=== PATIENT | male | born 1985 | race Caucasian/White ===

== ENCOUNTER → 2022-07-19 11:05 | Outpatient (BNVA) | payer OTHER, SELFPAY | PROVIDERS: Visit Provider Physician Assistant Medical | DX: Z13.89 Encounter for screening for other disorder (principal) | CPT/HCPCS: 99202 ==

== ENCOUNTER 2022-08-09 10:00 | Outpatient (RCR) | payer OTHER, SELFPAY ==
--- NOTE | 2022-08-01 14:44 | MHC.OT.EP ---
[address] [phone] Occupational Therapy Plan of Care Date of Evaluation: 08/01/22 Diagnosis: Bilateral dorsal hand pain Assessment: Pt. is a 37 y/o male referred to OT with B dorsal hand pain. Pt. reports > 3 week history of worsening dorsal index finger pain exacerbated by frequent typing at work. Pt. was educated in proper ergonomics related to work space and typing, and was receptive to recommendations. 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 Pt. educated in role of OT, POC, and goals. 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 Thank you once again for your referral.
== END 2022-12-13 14:15 | disposition home or self-care (01) ==
LOC: HO.OT 10:00
PROVIDERS: Visit Provider Internal Medicine
DX: M79.641 Pain in right hand (principal); M79.642 Pain in left hand
CPT/HCPCS: 97035; 97110; 97140; 97165

== ENCOUNTER → 2022-08-10 12:50 | Outpatient (BNVA) | payer OTHER, SELFPAY | PROVIDERS: Visit Provider Internal Medicine | DX: Z13.89 Encounter for screening for other disorder (principal) | CPT/HCPCS: 99213 ==

== ENCOUNTER 2023-11-12 14:49 | Emergency (ER) | payer OTHER, SELFPAY ==
[2023-11-12 15:29] VITALS: BP 160/108; PULSE 143; RESP 22; TEMP 37.2; O2SAT 96; BMI 27.4
[2023-11-12 15:44] LABS: MANUAL DIFF FLAG NO
[2023-11-12] MEDS: LORazepam 1 MG TABLET 2 MG PO ×2 (15:47→19:11)
[2023-11-12 15:48] LABS: Basophils Absolute Auto 0.1 X10*3/uL (0.0-0.2); Basophils Percent Auto 0.5 % (0-2); Hematocrit 44.3 % (42.0-52.0); Hemoglobin 15.6 g/dl (14.0-18.0); Imm Gran Abs Auto 0.04 X10*3/uL (0.00-0.03); Imm Gran Pct Auto 0.4 % (0.0-0.4); Lymphocytes Percent Auto 9.5 % (20-40); Mean Corpuscular HGB Conc 35.2 g/dl (31.0-36.0); Mean Corpuscular Hemoglobin 30.2 pg (27.0-33.0); Mean Corpuscular Volume 85.7 fL (80.0-98.0); Mean Platelet Volume 9.7 fL (9.4-12.4); Monocytes Absolute Auto 0.7 X10*3/uL (0.1-1.2); Monocytes Percent Auto 7.2 % (2-11); Neutrophils Absolute Auto 8.2 x10*3/uL (2.0-8.3); Neutrophils Percent Auto 82.4 % (45-73); Platelet Count 278 X10*3/uL (160-400); Red Blood Count 5.17 X10*6/uL (4.60-5.80); Red Cell Distribution Width 11.9 % (11.0-16.0)
--- NOTE | 2023-11-12 15:50 | MHC.CARE ---
CARE Team met with Pt secondary to coming to the ED for alcohol withdrawal; last drink was last night, typically drinking 10 mixed drinks a day.? CARE Team reviewed? treatment options with Pt;? ATS, IOP ect.? Plan for CARE Team to follow up with Pt pending medical clearance to discuss referrals.?
[2023-11-12 16:04] LABS: Alanine Aminotransferase 30 U/L (0-40); Albumin Level 4.5 g/dL (3.5-5.0); Alkaline Phosphatase 79 U/L (39-117); Anion Gap 18 (12-20); Aspartate Amino Transferase 35 U/L (5-37); Bilirubin Total 0.8 mg/dL (0.0-1.0); Blood Urea Nitrogen 9 mg/dL (9-16); Calcium 9.4 mg/dL (8.4-10.2); Carbon Dioxide 23 mmol/L (22-29); Chloride 101 mmol/L (96-108); Creatinine Clr Calc Pharmacy 110.4; Estimated Glomerular Filt Rate > 60; Ethanol < 10 mg/dL; Glucose Random 98 mg/dL (60-115); Potassium 3.5 mmol/L (3.3-5.1); Sodium 138 mmol/L (135-145); Total Protein 7.9 g/dL (6.5-8.0)
--- NOTE | 2023-11-12 16:15 | ED.GENADULT ---
HPI - General Adult General Chief complaint: General Medical Stated complaint: detox Time Seen by Provider: 11/12/23 15:17 Source: patient Mode of arrival: ambulatory Limitations: no limitations History of Present Illness HPI narrative: patient felt himself going into alcohol withdrawal and was told to come to the ED. He has been an alcoholic for 4 years. Denies liver failure or pancreatitis. Onset (ago): hour(s) Related Data Allergies Allergy/AdvReac Type Severity Reaction Status Date / Time azithromycin Allergy Hives Verified 11/12/23 15:36 Review of Systems Review of Systems: Yes all other systems are reviewed and are negative Neurologic: Denies Sensory deficit (Neuro) [facility] Social History Social History Alcohol intake: current Alcohol intake frequency: 3 or more drinks per day Alcohol type: hard liquor Smoked in Last 30 Days: No Use of substances other than those prescribed or required for medical reasons: No Physical Exam ED Vital Signs: Vital Signs - 24 hr 11/12/23 15:29 Temperature 98.9 F Pulse Rate 143 H Respiratory Rate 22 H Blood Pressure 160/108 H Pulse Oximetry 96 Oxygen Delivery Method Room Air BMI result Body Mass Index 27.4 Const Other: shakey, anxious Nutritional Appearance: average body habitus Orientation/consciousness: oriented to person and patient oriented x3 Limitations: no limitations HENMT Head: Yes normal to inspection Ears: external ears normal General nose exam: Normal external nose present Mouth: Normal oral and palatal mucosa present and oropharynx normal Throat: Yes posterior oropharynx normal Eyes General: appearance normal, both eyes and all related structures Neck Neck: Yes normal visual inspection Chest Chest palpation & inspection: normal inspection of the chest Resp Auscultation: clear to auscultation bilaterally Cardio Jugular venous distension: no JVD Rate: regular rate Rhythm: regular rhythm Heart sounds: S1 normal heart sound present and S2 normal heart sound present GI Inspection: Yes normal to inspection Palpation (GI): Soft to palpation, nontender and No hepatosplenomegaly present Auscultation: normal bowel sounds General: Yes no CVA tenderness Back/Spine/Pelvis Back: no CVA tenderness Skin General skin exam: no rashes or lesions noted Neuro General: oriented to person and patient oriented x3 Cranial nerves: Yes CN's II-XII intact bilaterally Motor exam (neuro): 5/5 motor strength present throughout Sensory Exam: No Sensory deficit (Neuro) Extrem General: Yes normal to inspection Psych Appearance: grossly normal Course Reevaluation(s) Reevaluation #1: Care team to evaluate the patient for withdrawal Time: 16: Reevaluation #2: physician observation: patient placed in physician observation now to see if he will need to be placed or admitted, still shakey Time: 16:26 Medications Administered Discontinued Medications Generic Name Dose Route Start Last Admin Trade Name Dustyq PRN Reason Stop Dose Admin Lorazepam 2 mg 11/12/23 15:26 11/12/23 15:47 Lorazepam 1 Mg Tablet PO 11/12/23 15:27 2 mg ONCE ONE Administration Medical Decision Making Differential Diagnosis Differential Diagnoses: The differential diagnosis associated with the presentation includes (alcoholism, alcohol withdrawal) Admission/Observation Consideration of admission/observation: Escalation of care including admission/observation considered (upon arrival patient considered for admission) Consult Healthcare Provider Management of the patient was discussed with: Behavioral Health Provider Lab Data [facility] Lab Attestation statement: I reviewed the patient's lab results. 11/12/23 15:41 11/12/23 15:41 Labs: Lab Results 11/12/23 Range/Units 15:41 WBC 10.0 (4.8-10.8) X10*3/uL RBC 5.17 (4.60-5.80) X10*6/uL Hgb 15.6 (14.0-18.0) g/dl Hct 44.3 (42.0-52.0) % MCV 85.7 (80.0-98.0) fL MCH 30.2 (27.0-33.0) pg MCHC 35.2 (31.0-36.0) g/dl RDW 11.9 (11.0-16.0) % Plt Count 278 (160-400) X10*3/uL MPV 9.7 (9.4-12.4) fL Immature Gran % (Auto) 0.4 (0.0-0.4) % Neut % (Auto) 82.4 H (45-73) % Lymph % (Auto) 9.5 L (20-40) % Mcpherson % (Auto) 7.2 (2-11) % Eos % (Auto) 0.0 (0-4) % Baso % (Auto) 0.5 (0-2) % Lymph # (Auto) 1.0 L (1.2-4.9) X10*3/uL Mcpherson # (Auto) 0.7 (0.1-1.2) X10*3/uL Eos # (Auto) 0.0 (0.0-0.4) X10*3/uL Baso # (Auto) 0.1 (0.0-0.2) X10*3/uL Abs Immat Gran (auto) 0.04 H (0.00-0.03) X10*3/uL Absolute Neuts (auto) 8.2 (2.0-8.3) x10*3/uL Absolute Nucleated RBC 0.000 (0.0-0.012) X10*3/uL Nucleated RBC % (auto) 0.0 (0.0-0.2) /100WBC Sodium 138 (135-145) mmol/L Potassium 3.5 (3.3-5.1) mmol/L Chloride 101 (96-108) mmol/L Carbon Dioxide 23 (22-29) mmol/L Anion Gap 18 (12-20) BUN 9 (9-16) mg/dL Creatinine 0.86 (0.5-1.4) mg/dL Estim Creat Clear Calc 110.4 Estimated GFR > 60 Random Glucose 98 (60-115) mg/dL Calcium 9.4 (8.4-10.2) mg/dL Total Bilirubin 0.8 (0.0-1.0) mg/dL AST 35 (5-37) U/L ALT 30 (0-40) U/L Alkaline Phosphatase 79 (39-117) U/L Total Protein 7.9 (6.5-8.0) g/dL Albumin 4.5 (3.5-5.0) g/dL Ethyl Alcohol < 10 mg/dL Independent Historian Clinical information obtained from an independent historian. History obtained from or confirmed by: Friend Chronic Conditions Patient?s care impacted by: Other (alcoholism) Social Determinants Patient?s care significantly limited by Social Determinants of Health including: Alcoholism and drug addiction in family Discharge Plan Discharge Clinical Impression: Alcohol withdrawal Patient Disposition: Still a Patient
--- NOTE | 2023-11-12 16:25 | PC.NURSE ---
pt presents to ED for ETOH withdrawal. last drink was yesterday. pt reports hx of etoh withdrawal with out seizures.he reports he typically drinks 10-15 drinks of mixed hard alcohol daily. a&ox4, independent and ambulatory. 20G IV placed in pts RAC. initial CIWA 7. pt tachy and tremulous, diaphoretic. informed and new orders placed.
[2023-11-12] MEDS: LORazepam 2 MG/ML VIAL IVPUSH (16:46)
[2023-11-12] MEDS: Pantoprazole Sodium 40 MG/10 ML VIAL IVPUSH (16:46)
[2023-11-12] MEDS: 0.9 % Sodium Chloride 1,000 ML 999 ML IVCONT ×2 (16:47)
[2023-11-12 17:28] LABS: Amphetamine Screen Urine Not Detected (Not Detect); Barbiturates, Urine Not Detected (Not Detect); Benzodiazepines Screen Urine Not Detected (Not Detect); Cannabinoid Screen Urine Not Detected (Not Detect); Cocaine Screen Urine Not Detected (Not Detect); Fentanyl, urine Not Detected (Not Detect); Opiate Screen Urine Not Detected (Not Detect); Phencyclidine Screen Urine Not Detected (Not Detect)
[2023-11-12 18:24] VITALS: BP 148/103; PULSE 124; RESP 21; O2SAT 96
--- NOTE | 2023-11-12 18:38 | MHC.CARE ---
Care Team meets with pt to explore recovery resources. Pt states that he feels much better and is interested in recovery resources. Care team informed him about [facility] and he was interested. T/w connected with Sirisha from [facility] who stated they have beds. Documentation provided and pt informed that they will be in contact to facilitate an intake over the phone. Pt is requesting to go home so he can find someone to watch his dog. Pt requests to go home around 8 because he states he does not feel comfortable driving. Per pt he gets lightheaded driving at night. Pt did not drink today, his last drink was last night. I informed pt that I can get him a lyft home and will be back to check in on him with any updates from [facility]. Pt reports he was under a lot of stress today and felt extremely anxious. ED provider aware of plan.
[2023-11-12] MEDS: 0.9 % Sodium Chloride 1,000 ML 999 ML IV (19:11)
[2023-11-12 19:15] VITALS: BP 154/109; PULSE 126; RESP 20; O2SAT 96
[2023-11-12] MEDS: chlordiazePOXIDE HCl 25 MG CAPSULE 50 MG PO (20:16)
== END 2023-11-12 20:26 | disposition home or self-care (01) ==
PROVIDERS: Emergency Provider Emergency Medicine; PCP Nurse Practitioner
DX: F10.239 Alcohol dependence with withdrawal, unspecified (principal); Y90.0 Blood alcohol level of less than 20 mg/100 ml; Z79.899 Other long term (current) drug therapy; Z71.41 Alcohol abuse counseling and surveillance of alcoholic
CPT/HCPCS: 36415; 80053; 80307; 85025; 96361; 96374; 96375; 99284; C9113; J2060

== ENCOUNTER 2024-11-30 09:15 | Outpatient (AMB) | payer OTHER, SELFPAY ==
--- NOTE | 2024-11-30 09:37 | MHC.AM.SUB ---
Intake Visit Reasons: Intake Allergies azithromycin Allergy (Verified 11/12/23 15:36) Hives HPI HPI Intake: Details: Patient presents for intake and continuation of treatment for AUD Wants to restart vivitrol --last injection about 3 months ago Full substance history obtained by RN and reviewed with patient Patient reports that he had been abstaining from alcohol for almost a year, then over the last few months has started to drink again. He noted that cravings/urges to drink increased when he stopped getting vivitrol He reports the injection was stopped mainly due to logistical issues (coverage, delivery, etc) and not anything else He states that he has noted decrease in motivation since he started drinking which has directly impacted his engagement with recovery oriented activities and supports He is drinking about 6-7 drinks when he drinks last drink one week ago He identifies free time and boredom as precipitants to drinking Medical history reviewed: -hypertension Med list: Family history of AUD Discussed Recovery supports and strategies that have been helpful to patient cooking at home, spending time with family, walking his dog (Zgreyson) He also enjoyed attending [facility] recovery meetings and [facility] Al[facility] meetings on evenings Occasionally AA meetings Review of Systems Const Reports as per HPI and Reports lethargy Physical Exam Const General: cooperative, healthy appearing, comfortable and alert Nutritional Appearance: average body habitus Orientation/consciousness: patient oriented x3 Limitations: no limitations Neuro General: patient oriented x3 Psych Appearance: well kempt Speech and movement: Normal speech and movement present Affect: normal affect Attitude: cooperative Thought process: Normal thought process present Thought content: Normal thought content present Insight: Good insight present (Psych) Judgement: Good judgement present (Psych) Results Reviewed Results Reviewed: Laboratory Last Values POC Urine Buprenorphine Negative 11/30/24 09:37 POC Urine Morphine Negative 11/30/24 09:37 POC Urine Oxycodone Negative 11/30/24 09:37 POC Urine Methadone Negative 11/30/24 09:37 POC Urine Propoxyphene Negative 11/30/24 09:37 POC Urine Barbiturates Negative 11/30/24 09:37 POC U Tricyclic Antidpr Negative 11/30/24 09:37 POC Urine PCP Negative 11/30/24 09:37 POC Ur Amphetamines Negative 11/30/24 09:37 POC Ur Methamphetamine Negative 11/30/24 09:37 POC Urine MDMA Negative 11/30/24 09:37 POC Ur Benzodiazepine Negative 11/30/24 09:37 POC Urine Cocaine Negative 11/30/24 09:37 POC Ur Marijuana (THC) Negative 11/30/24 09:37 Assessment & Plan Assessment & Plan (1) Alcohol use disorder, moderate, dependence: Code(s): F10.20 - Alcohol dependence, uncomplicated Category: Medical Plan: restart oral naltrexone vivitrol ordered encouraged to engage in recovery supports--start with alum meeting weds follow up 2 weeks will call when injection is available Orders: Orders AMB 14 Panel Urine Drug Screen 11/30/24 Z51.81 - Encounter for therapeutic drug level monitoring Medications: New naltrexone 50 mg PO DAILY 90 tabs 0RF naltrexone microspheres ER (Vivitrol) 380 mg IM Q4W 1 ea 0RF Discontinued lorazepam (Ativan) Discontinued Reason: Patient Completed Course 2 mg PO Q4-6H PRN 24 tabs 0RF alcohol withdrawal PFSH Social History Alcohol intake: current Alcohol intake frequency: 3 or more drinks per day Alcohol type: hard liquor MAT Intake Nursing Intake Reason for visit: Establish care Are you currently using?: No What is your source of income?: Works here at [employer] What is your current relationship status?: Single Current PCP: Moon Tucker Date of last visit: Within the year Substance Abuse History Substance Abuse History (includes route, frequency and quantity): Alcohol Details: Recent relapse Social History Domestic Violence concerns: Denies Children: No Do you have a support system?: Yes family and friends Current mode of transportation?: Drives Where are you currently residing?: In a home in [place] LMP: N/A IV Drug Use Have you ever shared needles?: No Have you ever belonged to a needle exchange program?: No Do you buy needles at a pharmacy?: No Have you ever overdosed?: No Have you ever been hospitalized for an overdose?: No Was Naloxone administered?: Not applicable Recovery History Have you had any periods of recovery?: Yes What is your longest time in recovery?: 6 months When was the last time you were in recovery?: A year ago Have you ever had inpatient treatment for your substance abuse disorder?: Yes Have you been in an inpatient detoxification program?: Yes Have you been in an inpatient Rehab/[place] house?: No Have you been in an outpatient Methadone Maintenance program?: No Have you been in an outpatient Suboxone Maintenance program?: No Have you been in an AA/NA support program?: Yes Have you had a Recovery Support [employer] Teacher?: No Have you had Peer Support?: Yes Behavioral Health History Do you have a current provider? If so, who?: No was seen at [facility] diagnosis: Anxiety/Depression History of other addictive behavior: denies History of inpatient psychiatric hospitalization? If so, how many? Most Recent? Where?: denies History of self harming thoughts?: No History of homicidal or suicidal intentions?: No Legal History History of incarceration: No Currently on parole or probation: No Court mandated programs: No Pending court cases: No DCF involvement: No
--- OUTSIDE RECORDS SUMMARY | 2024-11-30 09:38 | XMS_ITS ---
Author Name [facility] Organization Unknown Results Test Name/Text Value Interpretation Date Range Source Lipase SerPl-cCnc 34unit/L Normal [id number] 11 - 82 [facility] Ethanol SerPl-mCnc 45mg/dL Above high normal [id number] 0 - 10 [facility] Glucose SerPl-mCnc 93mg/dL Normal [id number] 70 - 199 [facility] Calcium SerPl-mCnc 9.2mg/dL Normal [id number] 8.4 - 10 .2 [facility] Sodium SerPl-sCnc 139mmol/L Normal [id number] 135 - 145 [facility] BUN SerPl-mCnc 15mg/dL Normal [id number] 9 - 20 [facility] ALP SerPl-cCnc 70unit/L Normal [id number] 34 - 104 [facility] Anion Gap SerPl-sCnc 10 Normal [id number] 5 - 14 [facility] Albumin SerPl-mCnc 4.4g/dL Normal [id number] 3.5 - 5 [facility] ALT SerPl-cCnc 24unit/L Normal [id number] 7 - 52 [facility] eGFRcr SerPlBld CKD-EPI 2020 104mL/min/1.73m 2 Normal [id number] - [facility] Creat SerPl-mCnc 0.94mg/dL Normal [id number] 0.7 - 1.3 [facility] AST SerPl-cCnc 23unit/L Normal [id number] 5 - 40 [facility] CO2 SerPl-sCnc 29mmol/L Normal [id number] 24 - 32 [facility] BUN/Creat SerPl 16 Normal [id number] 12 - 20 [facility] Bilirub SerPl-mCnc 0.9mg/dL Normal [id number] 0.3 - 1 [facility] Chloride SerPl-sCnc 100mmol/L Normal [id number] 98 - 10 7 [facility] Potassium SerPl-sCnc 4.2mmol/L Normal [id number] 3.5 - 5.1 [facility] Prot SerPl-mCnc 7g/dL Normal [id number] 6.4 - 8.5 [facility] MCV RBC Auto 84.7FL Normal [id number] 78 - 100 [facility] Lymphocytes # Bld Auto 1.56K/mcL Normal [id number] 1 - 3.2 [facility] WBC # Bld Auto 7.2K/mcL Normal [id number] 4 - 10.5 [facility] Monocytes/leuk NFr Bld Auto 7.7% Normal [id number] 2 - 12 [facility] Platelet # Bld Auto 301K/mcL Normal [id number] 150 - 4 50 [facility] PMV Bld Auto 10.3FL Normal [id number] 7.4 - 11.4 [facility] MCH RBC Qn Auto 30pcg Normal [id number] 25 - 33 [facility] Eosinophil # Bld Auto 0.04K/mcL Normal [id number] 0 - 0.5 [facility] Neutrophils/leuk NFr Bld Auto 68.7% Normal [id number] 44 - 74 [facility] RBC # Bld Auto 5.16M/mcL Normal [id number] 4.7 - 6 [facility] Monocytes # Bld Auto 0.56K/mcL Normal [id number] 0 - 0.8 [facility] RDW RBC Auto-Rto 12.4% Normal [id number] 12.1 - 17. 7 [facility] Lymphocytes/leuk NFr Bld Auto 21.6% Normal [id number] 20 - 48 [facility] Eosinophil/leuk NFr Bld Auto 0.6% Normal [id number] 0 - 6 [facility] Basophils # Bld Auto 0.07K/mcL Normal [id number] 0 - 0.2 [facility] Neutrophils # Bld Auto 4.97K/mcL Normal [id number] 1.8 - 7.8 [facility] Hct VFr Bld Auto 43.7% Normal 40 - 54 [facility] Hgb Bld-mCnc 15.5g/dL Normal 13.5 - 18 [facility] MCHC RBC Auto-mCnc 35.5g/dL Normal 32 - 36 [facility] Basophils/leuk NFr Bld Auto 1% Normal 0 - 2 [facility] TSH SerPl DL<=0.005 mIU/L-aCnc 2.15uIU/mL Normal 0.45 - 5.33 [facility] LDLc SerPl Calc-mCnc 122mg/dL Normal 50 - 130 [facility] TRIGL SERPL-MCNC 170mg/dL Above high normal [id number] - 150 [facility] CHOLEST SERPL-MCNC 216mg/dL Above high normal 0 - 200 [facility] HDLC SERPL-MCNC 60mg/dL Normal 32 - 70 [facility] CREAT SERPL MCNC 1mg/dL Normal 0.7 - 1.3 [facility] BILIRUB SERPL MCNC 0.9mg/dL Normal 0.3 - 1 [facility] AST SERPL CCNC 18U/L Normal 5 - 40 [facility] Glomerular filtration rate/1.73 sq M. predicted 97 Normal 60 - [facility] HCO3 SER SCNC 29mmol/L Normal 24 - 32 [facility] POTASSIUM SERPL SCNC 4.8mmol/L Normal [id number] 3.5 - 5.1 [facility] ANION GAP SERPL SCNC 10mmol/L Normal 5 - 14 [facility] PROT SERPL MCNC 7.2g/dL Normal 6.4 - 8.5 [facility] CALCIUM SERPL MCNC 9.3mg/dL Normal 8.4 - 10 .2 [facility] ALP SERPL-CCNC 76U/L Normal 34 - 104 [facility] SODIUM SERPL SCNC 140mmol/L Normal 135 - 145 [facility] GLUCOSE SERPL MCNC 79mg/dL Normal 70 - 199 [facility] ALBUMIN SERPL BCG MCNC 4.7g/dL Normal 3.5 - 5 [facility] CHLORIDE SERPL SCNC 101mmol/L Normal [id number] 98 - 10 7 [facility] ALT SERPL CCNC 18U/L Normal 7 - 52 [facility] BUN SERPL MCNC 12mg/dL Normal 9 - 20 [facility] DIFFERENTIAL TYPE AUTOMATED Normal [id number] [facility] NEUTROPHILS NFR BLD AUTO 66.3% Normal [id number] 44 - 74 [facility] BASOPHILS NFR BLD AUTO 1.2% Normal [id number] 0 - 2 [facility] MONOCYTES NFR BLD AUTO 7.2% Normal [id number] 2 - 12 [facility] HCT VFR BLD AUTO 44.4% Normal [id number] 40 - 54 [facility] MONOCYTES NO. BLD AUTO 0.4K/uL Normal [id number] 0 - 0.8 [facility] RDW RBC AUTO RTO 13% Normal [id number] 12.1 - 17. 7 [facility] PLATELET NO. BLD AUTO 260K/uL Normal [id number] 150 - 450 [facility] EOSINOPHIL NO. BLD AUTO 0.1K/uL Normal [id number] 0 - 0.5 [facility] RBC NO. BLD AUTO 5M/uL Normal [id number] 4.7 - 6 [facility] MCH RBC QN AUTO 31.1pg Normal [id number] 25 - 33 C [facility] MCHC RBC AUTO MCNC 35g/dL Normal [id number] 32 - 36 [facility] HGB BLD MCNC 15.6g/dL Normal [id number] 13.5 - 18 [facility] BASOPHILS IN BLOOD BY AUTOMATED COUNT 0.1K/uL Normal [id number] 0 - 0.2 [facility] WBC NO. BLD AUTO 6.1K/uL Normal [id number] 4 - 10.5 [facility] EOSINOPHIL NFR BLD AUTO 2.3% Normal [id number] 0 - 6 [facility] LYMPHOCYTES NFR BLD AUTO 23% Normal [id number] 20 - 48 [facility] MCV RBC AUTO 88.9fL Normal [id number] 78 - 100 [facility] NEUTROPHILS NO. BLD AUTO 4.1K/uL Normal [id number] 1.8 - 7.8 [facility] LYMPHOCYTES NO. BLD AUTO 1.4K/uL Normal [id number] 1 - 3.2 [facility] PMV BLD AUTO 10.4fL Normal [id number] 7.4 - 11.4 [facility] LIPASE SERPL CCNC 42U/L Normal 11 - 82 [facility] AMYLASE SERPL CCNC 27U/L Below low normal 2 9 - 103 [facility] MAGNESIUM SERPL MCNC 1.9mg/dL Normal [id number] 1.7 - 2.8 [facility] CREAT SERPL MCNC 0.9mg/dL Normal [id number] 0.7 - 1.3 [facility] CALCIUM SERPL MCNC 9mg/dL Normal [id number] 8.4 - 10 .2 [facility] SODIUM SERPL SCNC 135mmol/L Normal [id number] 135 - 145 [facility] ANION GAP SERPL SCNC 10mmol/L Normal [id number] 5 - 14 [facility] Glomerular filtration rate/1.73 sq M. predicted 110 Normal [id number] 60 - [facility] HCO3 SER SCNC 24mmol/L Normal [id number] 24 - 32 [facility] GLUCOSE SERPL MCNC 103mg/dL Normal [id number] 70 - 199 [facility] BUN SERPL MCNC 15mg/dL Normal [id number] 9 - 20 [facility] CHLORIDE SERPL SCNC 101mmol/L Normal [id number] 98 - 10 7 [facility] POTASSIUM SERPL SCNC 4mmol/L Normal [id number] 3.5 - 5.1 [facility] LDH SERPL L TO P CCNC 251U/L Above high normal [id number] 125 - 220 [facility] AST SERPL CCNC 107U/L Above high normal 5 - 40 [facility] ALP SERPL-CCNC 70U/L Normal 34 - 104 [facility] ALT SERPL CCNC 129U/L Above high normal 7 - 52 [facility] BILIRUB SERPL MCNC 1.7mg/dL Above high normal 0.3 - 1 [facility] BILIRUB DIRECT SERPL MCNC 0.4mg/dL Above high normal 0 - 0.2 [facility] PLATELET NO. BLD AUTO 293K/uL Normal [id number] 150 - 450 [facility] RBC NO. BLD AUTO 5.12M/uL Normal 4.7 - 6 [facility] NUCLEATED RBC 0% Normal 0 - 1 [facility] LYMPHOCYTES NO. BLD AUTO 1.2K/uL Normal 1 - 3.2 [facility] EOSINOPHIL NO. BLD AUTO 0.1K/uL Normal [id number] 0 - 0.5 [facility] MCH RBC QN AUTO 30.1pg Normal [id number] 25 - 33 C [facility] MCHC RBC AUTO MCNC 35.8g/dL Normal 32 - 36 [facility] MONOCYTES NFR BLD AUTO 9.1% Normal 2 - 12 [facility] IMMATURE GRANULOCYTE, ABSOLUTE 0.02k/uL Normal [id number] - 0.1 [facility] LYMPHOCYTES NFR BLD AUTO 17.7% Below low normal 20 - 48 [facility] EOSINOPHIL NFR BLD AUTO 0.9% Normal [id number] 0 - 6 [facility] HGB BLD MCNC 15.4g/dL Normal [id number] 13.5 - 18 [facility] NEUTROPHILS NO. BLD AUTO 4.8K/uL Normal [id number] 1.8 - 7.8 [facility] WBC NO. BLD AUTO 6.7K/uL Normal [id number] 4 - 10.5 [facility] BASOPHILS NFR BLD AUTO 1% Normal 0 - 2 [facility] MONOCYTES NO. BLD AUTO 0.6K/uL Normal 0 - 0.8 [facility] MCV RBC AUTO 84fL Normal 78 - 100 [facility] NEUTROPHILS NFR BLD AUTO 71% Normal 44 - 74 [facility] IMMATURE GRANULOCYTE, PERCENT 0.3% Normal 0 - 1 [facility] BASOPHILS IN BLOOD BY AUTOMATED COUNT 0.1K/uL Normal 0 - 0.2 [facility] PMV BLD AUTO 10.6fL Normal 7.4 - 11.4 [facility] RDW RBC AUTO RTO 11.6% Below low normal 12. 1 - 17.7 [facility] HCT VFR BLD AUTO 43% Normal 40 - 54 [facility] BNP BLD MCNC 23pg/mL Normal [id number] 0 - 100 [facility] MAGNESIUM SERPL MCNC 2.1mg/dL Normal [id number] 1.7 - 2.8 [facility] LIPASE SERPL CCNC 93U/L Above high normal [id number] 1 1 - 82 [facility] LDH SERPL L TO P CCNC 129U/L Normal [id number] 125 - 220 [facility] AST SERPL CCNC 22U/L Normal [id number] 5 - 40 [facility] ALP SERPL-CCNC 61U/L Normal [id number] 34 - 104 [facility] ALT SERPL CCNC 24U/L Normal [id number] 7 - 52 [facility] CREAT SERPL MCNC 1mg/dL Normal [id number] 0.7 - 1.3 [facility] CALCIUM SERPL MCNC 9.3mg/dL Normal [id number] 8.4 - 10 .2 [facility] SODIUM SERPL SCNC 136mmol/L Normal [id number] 135 - 145 [facility] ANION GAP SERPL SCNC 8mmol/L Normal [id number] 5 - 14 [facility] Glomerular filtration rate/1.73 sq M. predicted 98 Normal [id number] 60 - [facility] HCO3 SER SCNC 27mmol/L Normal [id number] 24 - 32 CTT [facility] GLUCOSE SERPL MCNC 93mg/dL Normal [id number] 70 - 199 [facility] BUN SERPL MCNC 12mg/dL Normal 9 - 20 [facility] CHLORIDE SERPL SCNC 101mmol/L Normal 98 - 10 7 [facility] POTASSIUM SERPL SCNC 3.8mmol/L Normal [id number] 3.5 - 5.1 [facility] BILIRUB SERPL MCNC 0.8mg/dL Normal [id number] 0.3 - 1 [facility] BILIRUB DIRECT SERPL MCNC 0.2mg/dL Normal 0 - 0.2 [facility] PT TIME PPP 11.8sec Normal [id number] 10.5 - 13.3 CTT HS INR PPP 1 Normal [id number] 0.8 - 1.1 [facility] D DIMER DDU PPP EIA MCNC 155ng/mLDDU Normal [id number] - 231 [facility] AMYLASE SERPL CCNC 38U/L Normal 29 - 103 [facility] Clarity Ur Refract.auto CLEAR Normal [id number] [facility] Prot Ur Ql Strip.auto NEGATIVE Normal [id number] - [facility] Glucose Ur Ql Strip.auto NEGATIVE Normal [id number] - [facility] Nitrite Ur Ql Strip.auto NEGATIVE Normal [id number] - [facility] Hgb Ur Ql Strip.auto NEGATIVE Normal [id number] - [facility] Ketones Ur Ql Strip.auto NEGATIVE Normal [id number] - [facility] Leukocyte esterase Ur Ql Strip.auto NEGATIVE Normal [id number] - [facility] Sp Gr Ur Strip.auto 1.025 Normal [id number] 1.0 05 - 1.03 [facility] pH Ur Strip.auto 6 Normal [id number] 4.5 - 8 [facility] PLATELET NO. BLD AUTO 229K/uL Normal [id number] 150 - 450 [facility] RBC NO. BLD AUTO 4.89M/uL Normal [id number] 4.7 - 6 [facility] NUCLEATED RBC 0% Normal [id number] 0 - 1 [facility] LYMPHOCYTES NO. BLD AUTO 1.7K/uL Normal [id number] 1 - 3.2 [facility] EOSINOPHIL NO. BLD AUTO 0.1K/uL Normal [id number] 0 - 0.5 [facility] MCH RBC QN AUTO 30.7pg Normal [id number] 25 - 33 C [facility] MCHC RBC AUTO MCNC 34.4g/dL Normal [id number] 32 - 36 [facility] MONOCYTES NFR BLD AUTO 8.4% Normal [id number] 2 - 12 [facility] IMMATURE GRANULOCYTE, ABSOLUTE 0.02k/uL Normal [id number] - 0.1 [facility] LYMPHOCYTES NFR BLD AUTO 21% Normal [id number] 20 - 48 [facility] EOSINOPHIL NFR BLD AUTO 0.6% Normal [id number] 0 - 6 [facility] HGB BLD MCNC 15g/dL Normal [id number] 13.5 - 18 [facility] NEUTROPHILS NO. BLD AUTO 5.4K/uL Normal [id number] 1.8 - 7.8 [facility] WBC NO. BLD AUTO 7.9K/uL Normal [id number] 4 - 10.5 [facility] BASOPHILS NFR BLD AUTO 0.9% Normal [id number] 0 - 2 [facility] MONOCYTES NO. BLD AUTO 0.7K/uL Normal [id number] 0 - 0.8 [facility] MCV RBC AUTO 89.2fL Normal [id number] 78 - 100 [facility] NEUTROPHILS NFR BLD AUTO 68.8% Normal [id number] 44 - 74 [facility] IMMATURE GRANULOCYTE, PERCENT 0.3% Normal [id number] 0 - 1 [facility] BASOPHILS IN BLOOD BY AUTOMATED COUNT 0.1K/uL Normal [id number] 0 - 0.2 [facility] PMV BLD AUTO 10.5fL Normal [id number] 7.4 - 11.4 [facility] RDW RBC AUTO RTO 11.9% Below low normal [id number] 12. 1 - 17.7 [facility] HCT VFR BLD AUTO 43.6% Normal [id number] 40 - 54 [facility] SPECIMEN SOURCE XXX URINE CLEAN CATCH Normal [id number] [facility] History of Medication Use Medication Directions Dispensed Refills Start Date End Date Stat VivitroL 380 mg suspension,extended rel recon intramuscular suspension Inject 1 Syringe (380 mg total) into the shoulder, thigh, or buttocks. 10/05/2024 9 active LORazepam (Ativan) 1 mg tablet Take 1 tablet (1 mg total) by mouth 3 (three) times a day if needed for anxiety for up to 5 days. Max Daily Amount: 3 mg 10/05/2024 active lactated Ringer's bolus 1,000 mL 1,000 mL, intravenous, at 1,000 mL/hr, Administer over 1 Hours, Once, On 10/03/24 at 1638, For 1 dose 10/05/2024 completed Trintellix 10 mg tablet Take 1 tablet (10 mg total) by mouth 1 (one) time each day. 10/05/2024 9 active ondansetron (PF) (ZOFRAN) injection 4 mg 4 mg, intravenous, Once, On 10/03/24 at 1650, For 1 dose 10/05/2024 completed LORazepam (ATIVAN) 0.5 mg tablet May take a total of 2mg in a 24 hour period 10/05/2024 9 aborted valsartan (DIOVAN) 320 mg tablet Take 1 tablet (320 mg total) by mouth daily. 10/05/2024 active pantoprazole (PROTONIX) 40 mg EC tablet Take 1 tablet (40 mg total) by mouth 2 (two) times a day if needed. 10/05/2024 active propranoloL (INDERAL) 10 mg immediate release tablet TAKE 1 TABLET BY MOUTH TWICE A DAY NEEDED FOR ANXIETY 09/14/2024 active VIVITROL 380 mg intramuscular suspension Inject 380 mg into the muscle. 09/14/2024 active valsartan (DIOVAN) 320 mg tablet Take 1 tablet (320 mg total) by mouth. 09/14/2024 9 active acamprosate (CAMPRAL) 333 mg delayed release tablet TAKE 1 TABLET BY MOUTH THREE TIMES A DAY FOR MAT 09/14/2024 active acamprosate (CAMPRAL) 333 MG tablet Take 2 tablets (666 mg total) by mouth 2 (two) times a day. 09/16/2024 9 active Vivitrol 380 MG SUSR injection Inject 380 mg into the muscle every 30 (thirty) days. 09/16/2024 9 active propranolol (INDERAL) 10 MG tablet TAKE 1 TABLET BY MOUTH TWICE A DAY NEEDED FOR ANXIETY 07/30/2024 active Trintellix 10 MG TABS tablet Take 1 tablet (10 mg total) by mouth daily. 07/30/2024 active LORazepam (ATIVAN) 1 MG tablet Take 1 tablet (1 mg total) by mouth every 6 (six) hours as needed for up to 5 doses. 07/30/2024 aborted acamprosate (CAMPRAL) 333 MG tablet Take 3 tablets (999 mg total) by mouth 2 (two) times a day. 07/30/2024 active Vivitrol 380 MG SUSR injection 07/30/2024 active diphenhydrAMINE (BENADRYL) 25 mg capsule Take 1 capsule (25 mg total) by mouth every 6 (six) hours as needed for itching for up to 15 doses. 07/30/2024 aborted valsartan (DIOVAN) tablet 320 mg Take 1 tablet (320 mg total) by mouth daily. 07/21/2024 active propranolol (INDERAL) 10 MG tablet TAKE 1 TABLET BY MOUTH TWICE A DAY NEEDED FOR ANXIETY 07/21/2024 active acamprosate (CAMPRAL) 333 MG tablet Take 3 tablets (999 mg total) by mouth 2 (two) times a day. 07/21/2024 active Trintellix 10 MG TABS tablet Take 1 tablet (10 mg total) by mouth daily. 07/21/2024 active Vivitrol 380 MG SUSR injection 07/21/2024 active pantoprazole (PROTONIX) 40 MG tablet Take 1 tablet (40 mg total) by mouth every morning on an empty stomach. 06/08/2024 active valsartan (DIOVAN) tablet 320 mg Take 1 tablet (320 mg total) by mouth daily. 06/08/2024 active gabapentin (NEURONTIN) 300 MG capsule 06/08/2024 active acamprosate (CAMPRAL) 333 MG tablet 06/08/2024 active LORazepam (Ativan) 0.5 MG tablet Take 1 tablet (0.5 mg total) by mouth 2 (two) times a day as needed for anxiety. 02/13/2024 aborted diphenhydrAMINE (BENADRYL) injection 50 mg 50 mg, Intravenous, Every 6 hours PRN, itching, Starting on Sat02/11/24 at 1210Administer undiluted. Maximum rate 25 mg/min. 02/13/2024 active acamprosate (CAMPRAL) 333 MG tablet 02/13/2024 active valsartan (DIOVAN) tablet 320 mg Take 1 tablet (320 mg total) by mouth daily. 02/13/2024 active sodium chloride 0.9% bolus (NS) 1,000 mL 1,000 mL, Intravenous, at 1,000 mL/hr, Once, On Sat02/11/24 at 1215, For 1 dose 02/13/2024 completed ondansetron (ZOFRAN) injection 4 mg 4 mg, Intravenous, Once, On Sat02/11/24 at 1215, For 1 doseIV push over 2 to 5 minutes. 02/13/2024 completed pantoprazole (PROTONIX) 40 MG tablet Take 1 tablet (40 mg total) by mouth every morning on an empty stomach. 02/13/2024 active LORazepam (ATIVAN) 2 MG/ML injection 1 mg 1 mg, Intravenous, Once, On Sat02/11/24 at 1215, For 1 dose 02/13/2024 completed gabapentin (NEURONTIN) 300 MG capsule 02/13/2024 active ondansetron (ZOFRAN-ODT) 4 MG disintegrating tablet Take 1 tablet (4 mg total) by mouth every 8 (eight) hours as needed for nausea for up to 15 days. 02/13/2024 active diphenhydrAMINE (BENADRYL) 25 mg capsule Take 1 capsule (25 mg total) by mouth every 6 (six) hours as needed for itching for up to 15 doses. 02/13/2024 active LORazepam (ATIVAN) 1 MG tablet Take 1 tablet (1 mg total) by mouth every 6 (six) hours as needed for up to 5 doses. 02/13/2024 active valsartan (DIOVAN) tablet 320 mg TAKE 1 TABLET BY MOUTH EVERY DAY 09/16/2023 active LORazepam (Ativan) 0.5 MG tablet May take a total of 2mg in a 24 hour period 09/16/2023 active Problems Problem Status Onset Date Problem Type Date of Resolution Source Alcohol withdrawal (HCC) active EncounterDiagnosisAct [facility] Tinnitus, bilateral active EncounterDiagnosisAc t [facility] Testicular lump active 2024-09-[address] [facility] Pain in left testicle active 2024-09-12 ProblemAct [facility] Flu vaccine need active EncounterDiagnosisAct [facility] Pain in left testicle active EncounterDiagnosisAct [facility] Alcohol abuse active 2021-08-07 ProblemAct [facility] Essential hypertension active 2021-08-07 ProblemAct [facility] 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 ProblemAct [facility] Anxiety active 2021-08-07 ProblemAct [facility] Alcohol withdrawal syndrome without complication (CMS/HCC) active EncounterDiagnosisAct [facility] Immunizations Vaccine Date Source Lot Number Status Influenza Trivalent (Flucelv ax) 0.5mL (6mon &>) 09/21/[facility] [id number] completed Covid-19 (Moderna Booster 18+) 0.25mL dosage 11/05/2021 [facility] [id number] completed sportif225 SARS-CoV-2 COVID-19, mRNA, LNP-S, preservative free 12/26/2020 [facility] completed Influenza Quadravalent, MDCK , 0.5ml, preservative free (Flucelvax) 6mo and older 08/31/2022 [facility] [id number] completed Influenza trivalent, with pr eservative (Fluzone; Afluria) 6mo and older 12/07/2015 [facility] [id number] completed sportif225 SARS-CoV-2 COVID-19, mRNA, LNP-S, preservative free 01/23/2021 [facility] completed
== END 2024-11-30 13:11 | disposition home or self-care (01) ==
PROVIDERS: PCP Nurse Practitioner; Visit Provider Nurse Practitioner Psychiatric/Mental Health
DX: Z51.81 Encounter for therapeutic drug level monitoring (principal)

== ENCOUNTER → 2024-11-30 09:15 | Outpatient (BNVA) | payer OTHER, SELFPAY | PROVIDERS: PCP Nurse Practitioner; Visit Provider Nurse Practitioner Psychiatric/Mental Health | DX: F10.20 Alcohol dependence, uncomplicated (principal) | CPT/HCPCS: 80307 ==

== ENCOUNTER 2024-12-14 13:20 | Outpatient (AMB) | payer OTHER, SELFPAY ==
--- NOTE | 2024-12-14 13:44 | A.OFFVISCC_ITS ---
Intake Visit Reasons: MAT Allergies azithromycin Allergy (Verified 11/12/23 15:36) Hives HPI HPI MAT: Details: Patient presents for AUD treatemnet follow up drank last week 4 days in a row felt terrible after cant get back into taking antidepressant and naltrexone regularly unmotivated trintellix 10mg daily restarted 3 days ago--half dose and naltrexone daily back pain Office Meds Vivitrol 380 mg intramuscular suspension,extended release Performing Provider: Nicole Means CNP Performing Location: [facility] Administered by: Sirisha Ng RN on 12/14/24 14:13 Dose Route Admin Location Dispensed Lot Number Expiration Date [facility] [employer]ight[employer] 380 mg IM LG 380 mg [id number] 12/25/26 59223-463-33 [employer] PFS Social History Alcohol intake: current Alcohol intake frequency: 3 or more drinks per day Alcohol type: hard liquor Assessment & Plan Assessment & Plan Orders: Orders AMB Naltrexone Injection - Practice Supplied Today F10.20 - Alcohol dependence, uncomplicated Medications: New Vivitrol ER (naltrexone microspheres) 380 mg IM ONCE 1 ea 0RF NS F10.20 - Alcohol dependence, uncomplicated
== END 2024-12-14 14:25 | disposition home or self-care (01) ==
PROVIDERS: PCP Nurse Practitioner; Visit Provider Nurse Practitioner Psychiatric/Mental Health
DX: F10.20 Alcohol dependence, uncomplicated (principal)

== ENCOUNTER → 2024-12-14 13:20 | Outpatient (BNVA) | payer OTHER, SELFPAY | PROVIDERS: PCP Nurse Practitioner; Visit Provider Nurse Practitioner Psychiatric/Mental Health | DX: F10.20 Alcohol dependence, uncomplicated (principal) | CPT/HCPCS: 96372; J2315 ==

== ENCOUNTER 2025-01-21 08:51 | Outpatient (AMB) | payer OTHER, SELFPAY ==
--- OUTSIDE RECORDS SUMMARY | 2025-01-21 09:25 | XMS_ITS | Clinical Summary ---
Author Organization [facility] Address [address] [place] [address] Care Team Providers [employer] Name Role Phone Rylee Matamoros Primary Care Provider [phone] Allergies Active Allergy Reactions Criticality Noted Date Comments Azithromycin Rash 11/17/2023 Social History Tobacco Use Types Packs/Day Years Used Date Smoking Tobacco: Never Assessed Sex and Gender Information Value Date Recorded Sex Assigned at Not on file Legal Sex Male 7:36 PM EST Gender Identity Not on file Sexual Orientation Not on file Last Filed Vital Signs Vital Sign Reading Time Taken Comments Blood Pressure 126/93 11/17/2023 9:30 PM EST Pulse 91 11/17/2023 9:30 PM EST Temperature 36.7 ??C (98.1 ??F) 11/17/2023 7:43 PM ES T Respiratory Rate 24 11/17/2023 9:30 PM EST Oxygen Saturation 98% 11/17/2023 9:30 PM EST Inhaled Oxygen Concentration - - Weight 81.6 kg (180 lb) 11/17/2023 7:43 PM EST Height 170.2 cm (5' 7 ) 11/17/2023 7:43 PM EST Body Mass Index 28.19 11/17/2023 7:43 PM EST Plan of Treatment Health Maintenance Due Date Last Done Comments HIV Screening 1983 Hepatitis C Screening 1983 Varicella Vaccines (1 of 2 - 13+ 2-dose series) 02/02/1996 Hepatitis B Vaccines (1 of 3 - 19+ 3-dose series) 2002 DTaP,Tdap,and Td Vaccines (1 - Tdap) 2005 COVID-19 Vaccine (2023-2 5 season) 2024 11/05/2021, 01/23/2021, 12/26/2020 Influenza Vaccine (#1) 2024 2, 12/07/2015 Alcohol/Substance Use Screening 11/25/2024 Depression Screening and Follow-Up 11/25/2024 Social Drivers of Health Annual Screening 11/25/2024 RSV Vaccine (60+ years old and patients) (1 - 1-dose 75+ series) 2058 Pneumococcal Vaccine: Pediatric (0-5 Years) and At-Risk Patients (6-50 Years) Aged Out No longer eligible based on patient's age to complete this topic Insurance Care Teams [employer] Relationship Specialty Start Date End Date Rylee Matamoros [address] [place] [address] PCP - General Pediatrics 11/17/23
--- OUTSIDE RECORDS SUMMARY | 2025-01-21 09:25 | XMS_ITS | Clinical Summary ---
Author Organization [facility] Address [address] [place] [address] Care Team Providers Care Gas Producer Name Role Phone Unavailable Primary Care Provider Unavailabl e Source Comments PLEASE NOTE, if this patient is a minor, it may be UNLAWFUL to discuss sensitive information that is contained in these records (such as FAMILY PLANNING, MENTAL HEALTH or SUBSTANCE ABUSE) with the minor patient's parent or other person without the patient's specific authorization.[facility] Allergies Active Allergy Reactions Criticality Noted Date Comments Erythromycin Rash,Itching 05/16/2016 Medications citalopram (CELEXA) 40 mg tablet TAKE 1 TABLET ONCE DAILY 90 Tab 0 05/10/2016 Active Active Problems Problem Noted Date Diagnosed Date Recurrent major depression in partial remission ([facility]) 12/07/2015 Immunizations Name Administration Dates Next Due INFLUENZA, SEASONAL, INJECTABLE 12/07/2015 Family History Medical History Relation Name Comments Depression Father Relation Name Status Comments Brother Alive Father Alive Mother Alive Sister Alive Social History Tobacco Use Types Packs/Day Years Used Date Smoking Tobacco: Never Tobacco Cessation:Counseling Given: Yes Alcohol Use Standard Drinks/Week Comments Yes 0 (1 standard drink = 0.6 oz pur e alcohol) Sex and Gender Information Value Date Recorded Sex Assigned at Not on file Legal Sex Male 11:51 AM PST Gender Identity Not on file Sexual Orientation Not on file Last Filed Vital Signs Vital Sign Reading Time Taken Comments Blood Pressure 121/83 05/16/2016 11:44 AM MDT Pulse 87 05/16/2016 11:44 AM MDT Temperature 36.9 ??C (98.4 ??F) 05/16/2016 11:44 AM M DT Respiratory Rate 20 05/16/2016 11:44 AM MDT Oxygen Saturation 97% 05/16/2016 11:44 AM MDT Inhaled Oxygen Concentration - - Weight 78.8 kg (173 lb 12 oz) 05/16/2016 11:44 A M MDT Height 170.2 cm (5' 7 ) 05/16/2016 11:44 AM MDT Body Mass Index 27.21 05/16/2016 11:44 AM MDT Plan of Treatment Not on file
--- OUTSIDE RECORDS SUMMARY | 2025-01-21 09:25 | XMS_ITS | Clinical Summary ---
Author Organization [address] Address [address] [place] [address] Care Team Providers Care Assistant Manager Pt Name Role Phone Unavailable Primary Care Provider Unavailabl e Allergies Active Allergy Reactions Criticality Noted Date Comments Azithromycin Rash Low 11/17/2023 Erythromycin Itching,Rash Low 05/16/2016 Medications acamprosate (CAMPRAL) 333 mg delayed release tablet TAKE 1 TABLET BY MOUTH THREE TIMES A DAY FOR MAT Active VIVITROL 380 mg intramuscular suspension Inject 380 mg into the muscle. 4 Active valsartan (DIOVAN) 320 mg tablet Take 1 tablet (320 mg total) by mouth. 4 Active propranoloL (INDERAL) 10 mg immediate release tablet TAKE 1 TABLET BY MOUTH TWICE A DAY NEEDED FOR ANXIETY 4 Active Active Problems Problem Noted Date Diagnosed Date Pain in left testicle 09/12/2024 Testicular lump 09/12/2024 Immunizations Name Administration Dates Next Due Influenza, MDCK, trivalent, injectable, preservative free 09/21/2024 Social History Tobacco Use Types Packs/Day Years Used Date Smoking Tobacco: Never Smokeless Tobacco: Never Tobacco Cessation:Counseling Given: Not Answered Alcohol Use Standard Drinks/Week Comments Not Currently 0 (1 standard drink = 0.6 oz pur e alcohol) Sex and Gender Information Value Date Recorded Sex Assigned at Not on file Legal Sex Male 1:59 AM EDT Gender Identity Not on file Sexual Orientation Not on file Last Filed Vital Signs Vital Sign Reading Time Taken Comments Blood Pressure 124/90 09/12/2024 2:29 PM EDT Pulse 96 09/12/2024 2:29 PM EDT Temperature 36.6 ??C (97.9 ??F) 09/12/2024 2:29 PM ED T Respiratory Rate 16 09/12/2024 2:29 PM EDT Oxygen Saturation 99% 09/12/2024 2:29 PM EDT Inhaled Oxygen Concentration - - Weight 79.4 kg (175 lb) 09/12/2024 2:29 PM EDT Height - - Body Mass Index - - Plan of Treatment Health Maintenance Due Date Last Done Comments HIV screening 02/02/1996 Hepatitis C screening 2001 Tetanus adult (Td q 10,TDAP once) 2003 Lipid disorder screening 2023 Covid-19 vaccine series ( season) 2024 11/05/2021, 01/23/2021, 12/26/2020 RSV Discussion (1 - 1-dose 7 5+ series) 2058 Influenza vaccine Completed 09/21/2024, 08/31/2022, 12/07/2015 Meningococcal Vaccine Aged Out No ji navya eligible based on patient's age to complete this topic Pneumococcal Vaccine (2 - 49 years) Aged Out No longer eligible b ased on patient's age to complete this topic Insurance BS Member Subscriber Plan / Payer (Ef fective 2022-Present) Name:Pierce Powers Relation to Subscriber:Self Name:Pierce Powers Payer ID:[id number] (NAIC) Type:Not on file Address: [address] [place] [id number]
--- OUTSIDE RECORDS SUMMARY | 2025-01-21 09:25 | XMS_ITS | Encounter Summary ---
Author Organization [facility] Address [address] [place] [address] Care Team Providers Care Finish Carpenter Name Role Phone Rylee Matamoros MEDICAL ADMINISTRATIVE SPECIALIST Primary Care Provider [phone] Encounter Details Date Type Department Care Team (Late st Contact Info) Description 09/08/2024 7:33 AM EDT Hospital Encounter TH HISTORIC ENCOUNTERS EASTERN CONVERSION ONLY Rylee Matamoros, MEDICAL ADMINISTRATIVE SPECIALIST [address] [place], [place] [id number] Social History Tobacco Use Types Packs/Day Years [...] on filedocumented in this encounter Care Teams Finish Carpenter Relationship Specialty Start Date End Date Rylee Matamoros, SALVATORE [address] [place] [address] PCP - General Family Medicine 12/11/22 documented as of this encounter
--- OUTSIDE RECORDS SUMMARY | 2025-01-21 09:25 | XMS_ITS | Encounter Summary ---
Author Organization [facility] Address [address] [place] [address] Care Team Providers Care Melt House Drag Operator Name Role Phone Rylee Matamoros RN MATERNAL CHILD Primary Care Provider [phone] Encounter Details Date Type Department Care Team (Late st Contact Info) Description 09/08/2024 11:25 AM EDT Hospital Encounter TH HISTORIC ENCOUNTERS EASTERN CONVERSION ONLY Rylee Matamoros, RN MATERNAL CHILD [address] [place], [place] [id number] Social History Tobacco Use Types Packs/Day Years [...] on filedocumented in this encounter Care Teams Melt House Drag Operator Relationship Specialty Start Date End Date Rylee Matamoros NP [address] [place] [address] PCP - General Family Medicine 12/11/22 documented as of this encounter
--- OUTSIDE RECORDS SUMMARY | 2025-01-21 09:26 | XMS_ITS | Encounter Summary ---
Author Organization [facility] Address [address] [place] [address] Care Team Providers Care Photographic Press Screwmaker Name Role Phone Rylee Matamoros SHOWROOM MANAGER Primary Care Provider [phone] Encounter Details Date Type Department Care Team (Late st Contact Info) Description 09/21/2024 10:45 AM EDT Hospital Encounter TH HISTORIC ENCOUNTERS EASTERN CONVERSION ONLY Rylee Matamoros, SHOWROOM MANAGER [address] [place], [place] [id number] Social History Tobacco Use Types Packs/Day Years [...] he needs the injection rx sent to [facility] as they have it in stock. Pt states he has not f/u with the mottle lay up operator yet or the eye doctor but will be calling them to get set up with an appt as the referrals were previously placed; he will be reaching out to [facility] & Dr. Lozano at [facility]. Pt states he has been experiencing pain [...] Given Today: Orders Placed This Encounter Procedures ? ? Influenza Trivalent (Flucelvax) 0.5 mL (6mon &>) [...] CARE TEAM Patient Care Team: Rylee Matamoros, FILM DRYING MACHINE OPERATOR as PCP - General (Pediatrics) HISTORY OF [...] he needs the injection rx sent to [facility] as they have it in stock. Pt states he has not f/u with the mottle lay up operator yet or the eye doctor but will be calling them to get set up with an appt as the referrals were previously placed; he will be reaching out to [facility] & Dr. Lozano at [facility]. 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 Pearly cosme tympanic membrane. 5 o? clock and 7 o? clock cone of light. AC>BC. Positive whisper test. Reyes midline. Nose: Nares intact. No deformities. Nontender sinuses. Arispe nasal mucosa without boggy turbinate. Smelling intact. [...] BMI Counseling 09/21/2025 ??? Influenza Vaccine Completed ? ? RSV Ped < 20 months Aged Out [...] the vivtrol injections will be sent to [facility]. Pt received flu shot [...] Encounter Procedures ??? US Scrotum with Doppler [facility] PT [id number] 09/22/24 Standing Status: Future Standing Expiration Date: 09/21/2025 Order Specific Question: Reason for Exam: Answer: Left testicle pain Order Specific Question: Would you like radiology scheduling to contact the patient to schedule their appointment? Answer: Yes Order Specific Question: Release to patient Answer: Immediate [1] ? ? Influenza Trivalent (Flucelvax) 0.5 mL (6mon &>) ??? POCT Urinalysis, Auto, W/O Scope Order Specific Question: Release to patient Answer: Immediate [1] There are no Patient Instructions on file for this visit. Future Appointments Date Time Provider Department Center 09/28/2024 1:30 PM BINU US 2 RA-EUS [facility] Rad Dickf Rylee Matamoros APRN Family Nurse Practitioner [facility] 09/21/2024 documented in this encounter Plan of Treatment Not on file documented as of this encounter Visit Diagnoses Not on filedocumented in this encounter Care Teams Photographic Press Screwmaker Relationship Specialty Start Date End Date Rylee Matamoros NP [address] [place] [address] PCP - General Family Medicine 12/11/22 documented as of this encounter
--- OUTSIDE RECORDS SUMMARY | 2025-01-21 09:26 | XMS_ITS | Clinical Summary ---
Author Organization [facility] Address [address] [place] [address] Care Team Providers Care Arnp Name Role Phone Rylee Matamoros Hema CRUZ Primary Care Provider [phone] Allergies Active Allergy Reactions Criticality Noted Date Comments Azithromycin Rash Low 11/17/2023 Erythromycin Itching,Rash Low 05/16/2016 Medications Medication Sig Dispensed Refills Start Date End Date Status propranolol (INDERAL) 10 MG tablet TAKE 1 TABLET BY MOUTH TWICE A DAY NEEDED FOR ANXIETY 0 03/19/2024 Active pantoprazole (PROTONIX) 40 MG tablet Take 1 tablet (40 mg total) by mouth every morning on an empty stomach. 0 Active Vivitrol 380 MG SUSR injection Inject 380 mg into the muscle every 30 (thirty) days. 1.2 each 1 09/21/2024 Active valsartan (DIOVAN) tablet 320 mg Take 1 tablet (320 mg total) by mouth daily. 90 tablet 0 09/21/2024 Active pantoprazole (PROTONIX) 40 MG tablet Take 1 tablet (40 mg total) by mouth every morning on an empty stomach. 30 tablet 0 09/21/2024 Active Active Problems Problem Noted Date Diagnosed Date Alcohol abuse 08/07/2021 Anxiety 08/07/2021 Essential hypertension 08/07/2021 Recurrent major depression in partial remission 12/07/2015 Immunizations Name Administration Dates Next Due Covid-19 (Moderna Booster 18+) 0.25mL dosage 10/2021 Covid-19 (Pfizer) Dilution Required 01/23/2021,0 12/26/2020 Influenza Quad (Flucelvax) 0.5mL >6mon (ccIIV4) 08/31/2022 Influenza Trivalent (Flucelvax) 0.5mL (6mon &>) 09/21/2024 Influenza Trivalent (Fluzone /Afluria) 5.0mL Multi-dose Vial 12/07/2015 Family History Medical History Relation Name Comments No Sig Med Hx Brother Bipolar disorder Father Hyperlipidemia Father Hypertension Father Bladder Cancer Maternal Grandfather Alcohol abuse Maternal Grandmother Anxiety disorder Maternal Grandmother Hypertension Maternal Grandmother Stroke Maternal Grandmother Hyperlipidemia Mother Hypertension Mother Hypothyroidism Mother Lung cancer Paternal Grandfather Stroke Paternal Grandfather No Sig Med Hx Paternal Grandmother Hemochromatosis Paternal Uncle OCD Sister Relation Name Status Comments Brother Alive Father Alive Maternal Grandfather Maternal Grandmother Mother Alive Paternal Grandfather Paternal Grandmother Paternal Uncle Sister Alive Social History Tobacco Use Types Packs/Day Years Used Date Smoking Tobacco: Never Smokeless Tobacco: Never Tobacco Cessation:Counseling Given: Not Answered Alcohol Use Standard Drinks/Week Comments Yes 30 (1 standard drink = 0.6 oz pu re alcohol) on average per week Social Connection and Isolation Panel [NHANES] A nswer Date Recorded In a typical week, how many times do you talk on the phone with family, friends, or neighbors? Three times a week 08/31/2022 How often do you get togethe r with friends or relatives? Twice a week 08/31/2022 How often do you attend chur ch or jehovah's witness services? Never 08/31/2022 Do you belong to any clubs o r organizations such as evangelical groups, unions, fraternal or athletic groups, or school groups? No 08/31/2022 How often do you attend meet ings of the clubs or organizations you belong to? Never 08/31/2022 Are you , , di vorced, , never , or living with a partner? Never 08/31/2022 Overall Financial Resource Strain (CARDIA) Answe r Date Recorded How hard is it for you to pa y for the very basics like food, housing, medical care, and heating? Not hard at all 08/31/2022 Hunger Vital Sign Answer Date Recorded Within the past 12 months, y ou worried that your food would run out before you got the money to buy more. Never true 08/31/20 22 Within the past 12 months, t he food you bought just didn't last and you didn't have money to get more. Never true 08/31/2022 PRAPARE - Transportation Answer Date Re corded In the past 12 months, has l ack of transportation kept you from medical appointments or from getting medications? No 05/2022 In the past 12 months, has l ack of transportation kept you from meetings, work, or from getting things needed for daily living? No 08/31/2022 Housing Stability Vital Sign Answer Bill e Recorded In the last 12 months, was t here a time when you were not able to pay the mortgage or rent on time? No 08/31/2022 In the last 12 months, how many places have you lived? 1 08/31/2022 In the last 12 months, was t here a time when you did not have a steady place to sleep or slept in a usp (including now)? No 08/31/2022 Sex and Gender Information Value Date Recorded Sex Assigned at Male 05/14/2022 12:44 PM EDT Gender Identity Not on file Sexual Orientation Not on file Job Start Date Occupation Industry Not on file Not on file Not on file Last Filed Vital Signs Vital Sign Reading Time Taken Comments Blood Pressure 134/86 09/21/2024 10:56 AM EDT Pulse 91 09/21/2024 10:56 AM EDT Temperature 36.6 ??C (97.8 ??F) 09/21/2024 1 0:56 AM EDT Respiratory Rate 16 02/11/2024 2:05 PM EDT Oxygen Saturation 99% 09/21/2024 10: 56 AM EDT Inhaled Oxygen Concentration - - Weight 82.9 kg (182 lb 12.8 oz) 024 10:56 AM EDT Height 170.2 cm (5' 7 ) 09/21/2024 10:5 6 AM EDT Body Mass Index 28.63 09/21/2024 10:56 AM EDT Plan of Treatment Health Maintenance Due Date Last Done Comments Preventative Health Evaluation 09/16/2024 09/16/2023, 08/31/2022, 08/19/2021 BMI Counseling 09/21/2025 09/21/2024, 08/26, 08/31/2022, Additional history exists Depression Screening 09/21/2025 09/21/2024, 09/21/2024, 09/16/2023, Additional history exists COVID-19 Vaccine Discontinued 11/05/2021, 11/2020, 12/26/2020 Influenza Vaccine Completed 09/21/2024, , 12/07/2015 DTap / Tdap / Td Discontinued Hepatitis B Vaccines Discontinued Hepatitis C Screening Discontinued Pneumococcal Vaccine Discontinued RSV Ped < 20 months Aged Out No longe r eligible based on patient's age to complete this topic Care Teams Arnp Relationship Specialty Start Date End Date Rylee Matamoros APRN PCP - General Pediatrics 08/04/21
--- OUTSIDE RECORDS SUMMARY | 2025-01-21 09:26 | XMS_ITS | Referral Summary ---
Author Organization [facility] Address [address] [place] [address] Care Team Providers Care Adobe Ball Mixer Name Role Phone Rylee Matamoros Primary Care Provider [phone] Allergies Active Allergy Reactions Criticality Noted Date [...] 11/17/2023 7:43 PM EST Plan of Treatment Not on file Insurance Tereso Broussard [address] [place] [id number] [employer] Care Teams Adobe Ball Mixer Relationship Specialty Start Date End Date Rylee Matamoros [address] [place] [place] [address] PCP - General Pediatrics 11/17/23
--- OUTSIDE RECORDS SUMMARY | 2025-01-21 09:26 | XMS_ITS | Clinical Summary ---
Author Organization [facility] Address [address] [place] [address] Phone Care Team Providers Care Gas Leak Inspector Name Role Phone Rylee Matamoros WINDOWS VMWARE ENGINEER Primary Care Provider [phone] Allergies Active Allergy Reactions Criticality Noted Date Comments Erythromycin Itching,Rash Low 05/16/2016 Medications valsartan (DIOVAN) 320 mg tablet Take 1 tablet (320 mg total) by mouth daily. 2 Active VivitroL 380 mg suspension,extende d rel recon intramuscular suspension Inject 1 Syringe (380 mg total) into the shoulder, thigh, or buttocks. 4 Active Trintellix 10 mg tablet Take 1 tablet (10 mg total) by mouth 1 (one) time each day. 4 Active pantoprazole (PROTONIX) 40 mg EC tablet Take 1 tablet (40 mg total) by mouth 2 (two) times a day if needed. 4 Active LORazepam (Ativan) 1 mg tablet Take 1 tablet (1 mg total) by mouth 3 (three) times a day if needed for anxiety for up to 5 days. Max Daily Amount: 3 mg 6 tablet 4 Active Active Problems Problem Noted Date Diagnosed Date Alcohol abuse 08/07/2021 Anxiety 08/07/2021 Essential hypertension 08/07/2021 Recurrent major depression in partial remission 12/07/2015 Immunizations Name Administration Dates Next Due Influenza Quadravalent, MDCK , 0.5ml, preservative free (Flucelvax) 6mo and older 08/31/2022 Influenza trivalent, with pr eservative (Fluzone; Afluria) 6mo and older 12/07/2015 Pfizer SARS-CoV-2 COVID-19, mRNA, LNP-S, preservative free 01/23/2021,12/26/2020 Medical History Medical History Date Comments Anxiety DX:Anxiety Depression DX:Depression Alcohol abuse 08/07/2021 DX:Alcohol abuse Essential hypertension 08/07/2021 DX:Essent ial hypertension Family History Medical History Relation Name Comments No Known Problems Brother Bipolar disorder Father Hyperlipidemia Father Hypertension Father Hemochromatosis Father's Brother Bladder Cancer Maternal Grandfather Alcohol abuse Maternal Grandmother Anxiety disorder Maternal Grandmother Hypertension Maternal Grandmother Stroke Maternal Grandmother Hyperlipidemia Mother Hypertension Mother Hypothyroidism Mother Lung cancer Paternal Grandfather Stroke Paternal Grandfather No Known Problems Paternal Grandmother OCD Sister Relation Name Status Comments Brother Alive Father Alive Father's Brother Maternal Grandfather Maternal Grandmother Mother Alive Paternal Grandfather Paternal Grandmother Sister Alive Social History Tobacco Use Types [...] not to disclose 2023 5:19 PM EST Obstetrics History Last Filed Vital Signs Vital Sign Reading Time Taken Comments Blood Pressure 165/109 10/03/2024 5:40 PM EST Pulse 80 10/03/2024 5:40 PM EST Temperature 37.2 ??C (99 ??F) 10/03/2024 4:20 PM EST Respiratory Rate 18 10/03/2024 4:20 PM EST Oxygen Saturation 99% 10/03/2024 5:40 PM EST Inhaled Oxygen Concentration - - Weight 79.5 kg (175 lb 5.7 oz) 10/03/2024 4:20 P M EST Height 170.2 cm (5' 7 ) 10/03/2024 4:23 PM EST Body Mass Index 27.46 10/03/2024 4:20 PM EST Plan of Treatment Health Maintenance Due Date Last Done Comments DTaP,Tdap,and Td Vaccines (1 - Tdap) 2002 Hepatitis A Vaccines (1 of 2 - Risk 2-dose series) 2002 Hepatitis B Vaccines (1 of 3 - 19+ 3-dose series) 2002 HIV Screening 11/03/2022 Hepatitis C Screening 11/03/2022 Social Influencers of Health Screening 11/03/2022 Depression Screening 08/31/2023 08/31/2022 COVID-19 Vaccine ( season) 2024 11/05/2021, 01/23/2021, 12/26/2020 Hypertension/CHF/CAD Annual BMP Blood Test 10/03/2025 10/03/2024, 09/08/2024, 09/08/2024, Additional history exists Cholesterol Screening (Lipid Panel) 09/08/2029 09/08/2024, 09/08/2024, 09/09/2023, Additional history exists Influenza Vaccine Completed 09/21/2024, , 09/08/2021, Additional history exists HIB Vaccines Aged Out No longer eligi ble based on patient's age to complete this topic HPV Vaccines Aged Out No longer eligi ble based on patient's age to complete this topic IPV Vaccines Aged Out No longer eligi ble based on patient's age to complete this topic MMR Vaccines Aged Out No longer eligi ble based on patient's age to complete this topic Meningococcal ACWY Vaccine Aged Out N o longer eligible based on patient's age to complete this topic Meningococcal B Vacine Aged Out No lo nger eligible based on patient's age to complete this topic Pneumococcal Vaccine: Pediatrics (0 to 5 Years) and At-Risk Patients (6 to 64 Years) Aged Out No longer eligible based on patient's age to complete this topic RSV Immunization Patients Under 20 months Aged Out No longer eligible based on patient's age to complete this topic Varicella Vaccines Aged Out No longer eligible based on patient's age to complete this topic Procedures Procedure Name Priority Date/Time Associated Diagnosis Comments COMPREHENSIVE METABOLIC PANEL STAT 10/03/2024 4:44 PM EST DEPRESSION SCREENING Routine 08/31/2022 from Last 3 Months or Most Recently Relevant to Health Maintenance Results * Comprehensive Metabolic Panel (CMP) (10/03/2024 4:44 PM EST) Sodium 139 135 - 145 mmol/L LAB CHEMISTRY METHOD 10/03/2024 5:09 PM [facility] Potassium 4.2 3.5 - 5.1 mmol/L LAB CHEMISTRY METHOD 10/03/2024 5:09 PM [facility] Chloride 100 98 - 107 mmol/L LAB CHEMISTRY METHOD 10/03/2024 5:09 PM [facility] CO2 29 24 - 32 mmol/L LAB CHEMISTRY METHOD 10/03/2024 5:09 PM [facility] Anion Gap 10 5 - 14 LAB CHEMISTRY METHOD 10/03/2024 5:09 PM [facility] Glucose 93 70 - 199 mg/dL LAB CHEMISTRY METHOD 10/03/2024 5:09 PM [facility] BUN 15 9 - 20 mg/dL LAB CHEMISTRY METHOD 10/03/2024 5:09 PM [facility] Creatinine 0.94 0.70 - 1.30 mg/dL LAB CHEMISTRY METHOD 10/03/2024 5:09 PM [facility] eGFR 104 >=60 mL/min/1. 73m2 LAB CHEMISTRY METHOD 10/03/2024 5:09 PM [facility] Comment:Calculation based on the??Chronic Kidney Disease Epidemiology Collaboration (CKD-EPI) equation refit??without adjustment for race. BUN/Creatinine Ratio 16.0 12.0 - 20.0 LAB CHEMISTRY METHOD 10/03/2024 5:09 PM [facility] Calcium 9.2 8.4 - 10.2 mg/dL LAB CHEMISTRY METHOD 10/03/2024 5:09 PM [facility] AST (SGOT) 23 5 - 40 unit/L LAB CHEMISTRY METHOD 10/03/2024 5:09 PM [facility] ALT (SGPT) 24 7 - 52 unit/L LAB CHEMISTRY METHOD 10/03/2024 5:09 PM [facility] Alkaline Phosphatase 70 34 - 104 unit/L LAB CHEMISTRY METHOD 10/03/2024 5:09 PM [facility] Total Protein 7.0 6.4 - 8.5 g/dL LAB CHEMISTRY METHOD 10/03/2024 5:09 PM [facility] Albumin 4.4 3.5 - 5.0 g/dL LAB CHEMISTRY METHOD 10/03/2024 5:09 PM [facility] Total Bilirubin 0.9 0.3 - 1.0 mg/dL LAB CHEMISTRY METHOD 10/03/2024 5:09 PM [facility] Blood Venous blood specimen / Unknown Venipuncture / Unknown 10/03/2024 4:44 PM EST 10/03/2024 4:48 PM EST Jesus Monterroso MD LAB BLOOD ORDERABLES Final Result [facility] [address] [place] [address], [place] [phone] * Depression Screening (08/31/2022) [facility] Depression Screening abstracted Historical Provider HEALTH MAINTENANCE Final Result from Last 3 Months or Most Recently Relevant to Health Maintenance Insurance [facility] Care Teams Gas Leak Inspector Relationship Specialty Start Date End Date Rylee Matamoros NP [address] [place] [address] PCP - General Family Medicine 12/11/22
--- NOTE | 2025-01-21 10:27 | AM.OFFVISNUR ---
Vital Signs 01/21/25 13:38 BP 120/75 Blood Pressure Location Rt brachial Position Sitting Respiration 19 Pulse 89 Pulse Source Pulse Oximeter Pulse Oximetry (%) 98 Intake Visit Reasons: Vivitrol Injection Allergies azithromycin Allergy (Verified 11/12/23 15:36) Hives Nursing Note Patient Presents for vivitrol Injection. Current Dose 380mg. Given in the LG with no noted or stated complication. Denies any issues with previous injection. Patient states he is struggling with finding people to talk with, I recommended calling [employer] which he agrees to try for a learning coach. Will check in with RN in 4 weeks for injection. Office Meds Vivitrol 380 mg intramuscular suspension,extended release Performing Provider: Nicole Means CNP Performing Location: [facility] Administered by: Sirisha Ng RN on 01/21/25 13:45 Dose Route Admin Location Dispensed Lot Number Expiration Date [facility] Fire Chief Deputy 380 mg IM LG 380 mg [id number] 06/24/27 23765-878-28 Naldo Assessment & Plan Assessment & Plan Orders: Orders AMB Naltrexone Injection - Practice Supplied Today F10.20 - Alcohol dependence, uncomplicated Medications: New Vivitrol ER (naltrexone microspheres) 380 mg IM ONCE 1 ea 0RF NS F10.20 - Alcohol dependence, uncomplicated Refilled naltrexone microspheres ER (Vivitrol) 380 mg IM Q4W 1 ea 0RF Coding
[2025-01-21 13:38] VITALS: BP 120/75; PULSE 89; RESP 19; O2SAT 98
== END 2025-01-21 09:38 | disposition home or self-care (01) ==
PROVIDERS: PCP Nurse Practitioner
DX: F10.20 Alcohol dependence, uncomplicated (principal)

== ENCOUNTER → 2025-01-21 08:51 | Outpatient (BNVA) | payer OTHER, SELFPAY | PROVIDERS: PCP Nurse Practitioner | DX: F10.20 Alcohol dependence, uncomplicated (principal) | CPT/HCPCS: 96372; J2315 ==

== ENCOUNTER → 2025-02-18 09:00 | Outpatient (BNVA) | payer OTHER, SELFPAY | PROVIDERS: PCP Nurse Practitioner | DX: F10.20 Alcohol dependence, uncomplicated (principal) | CPT/HCPCS: 96372; J2315 ==

== ENCOUNTER 2025-03-19 09:32 | Outpatient (AMB) | payer OTHER, SELFPAY ==
--- OUTSIDE RECORDS SUMMARY | 2025-03-19 09:44 | XMS_ITS | Clinical Summary ---
Author Organization [facility] Address [address] [place] [address] Care Team Providers Care Spray Painter Name Role Phone Rylee Matamoros Primary Care Provider [phone] Allergies Active Allergy Reactions Criticality Noted Date [...] (2023-2 5 season) 2024 11/05/2021, 01/23/2021, 12/26/2020 Alcohol/Substance Use Screening 11/25/2024 Depression Screening and Follow-Up 11/25/2024 Social Drivers of Health Annual Screening 11/25/2024 Influenza Vaccine (Season Ended) 2025 08/31/2022, 12/07/2015 RSV Vaccine (60+ years old and patients) (1 - 1-dose 75+ series) 2058 Pneumococcal Vaccine: Pediatric (0-5 Years) and At-Risk Patients (6-50 Years) Aged Out No longer eligible based on patient's age to complete this topic Insurance Care Teams Spray Painter Relationship Specialty Start Date End Date Rylee Matamoros [address] [place] [address] PCP - General Pediatrics 11/17/23
--- OUTSIDE RECORDS SUMMARY | 2025-03-19 09:44 | XMS_ITS | Encounter Summary ---
Author Organization [facility] Address [address] [place] [address] Care Team Providers Care Transfer Coordinator Name Role Phone Rylee Matamoros UPSETTER SETTER UP Primary Care Provider [phone] Encounter Details Date Type Department Care Team (Late st Contact Info) Description 09/08/2024 11:25 AM EDT Hospital Encounter TH HISTORIC ENCOUNTERS EASTERN CONVERSION ONLY Rylee Matamoros, UPSETTER SETTER UP [address] [place], [place] [id number] Social History Tobacco Use Types Packs/Day Years [...] on filedocumented in this encounter Care Teams Transfer Coordinator Relationship Specialty Start Date End Date Rylee Matamoros NP [address] [place] [address] PCP - General Family Medicine 12/11/22 documented as of this encounter
--- OUTSIDE RECORDS SUMMARY | 2025-03-19 09:44 | XMS_ITS | Encounter Summary ---
Author Organization [facility] Address [address] [place] [address] Care Team Providers Care Detective Private Eye Name Role Phone Rylee Matamoros ASSEMBLER INSTALLER STRUCTURES Primary Care Provider Encounter Details Date Type Department Care Team (Late st Contact Info) Description 09/08/2024 7:33 AM EDT Hospital Encounter TH HISTORIC ENCOUNTERS EASTERN CONVERSION ONLY Rylee Matamoros, ASSEMBLER INSTALLER STRUCTURES [address] [place], [place] [id number] Social History Tobacco Use Types Packs/Day Years [...] on filedocumented in this encounter Care Teams Detective Private Eye Relationship Specialty Start Date End Date Rylee Matamoros, SALVATORE [address] [place] [address] PCP - General Family Medicine 12/11/22 documented as of this encounter
--- OUTSIDE RECORDS SUMMARY | 2025-03-19 09:44 | XMS_ITS | Clinical Summary ---
Author Organization [address] Address [address] [place] [address] Care Team Providers Care Stave Inspector Name Role Phone Unavailable Primary Care Provider [...] series ( season) 2024 11/05/2021, 01/23/2021, 12/26/2020 Influenza vaccine 07/26/2025 09/21/2024, 08/31/2022, 12/07/2015 RSV Immunization (1 - 1-dose 75+ series) 2058 Meningococcal Vaccine Aged Out No ji navya eligible based on patient's age to complete this topic Pneumococcal Vaccine (2 - 49 years) Aged Out No longer eligible b ased on patient's age to complete this topic Insurance
--- OUTSIDE RECORDS SUMMARY | 2025-03-19 09:44 | XMS_ITS | Data Portability ---
Author Organization [place] [facility] [email or web address] [facility], [employer] - [facility] Address [address] [place] [address] Assessment No assessment recorded. Plan of Treatment Reminders Order Date Submit Date Provider Last Modified By Organization Details Last Modified Time Details Appointments None recorded. Lab None recorded. Referral None recorded. Procedures None recorded. Surgeries None recorded. Imaging None recorded. Medication Orders valsartan 320 mg tablet [address]/Pharmacy #[id number], [address] [place], [address], 4 17:19:44 propranolol 10 mg tablet 2023 024 [facility]/Pharmacy #[id number], [address] [place], [address], 4 17:19:44 Patient TargetsNo targets recorded. Patient Instructions Encounter Date Encounter Id Patient Instructions Last Modified By Organization Details Last Modified Time 11/10/2024 [id number] - Informed pt th at his blood pressure has only come down slightly but his valsartan will not be changed because there is the worry that it will drop his blood pressure too much - Informed pt that since he is having such as issue getting the vivitrol injection, he should try to get it through the [facility] - Informed pt that he can try the propranolol again for his anxiety and it will be sent to the pharmacy - Propranolol 10 mg sent to the pharmacy - Discussed the pt's scrotum ultrasound with him and informed him that there was minor calcification noted in the right testicle but other than that it was unremarkable - Refill on valsartan sent to the pharmacy - Pt will follow up in 6 months for a bp check since his last physical was in August of 2024 - No other questions or concerns at this time [email or web address] Not available 11/10/2024 15:33:43 Reason for Referral None Reported. Problems Name Problem SNOMED Code Status Onset Date Resolution Date Notes Provider Name and Address Organization Details Recorded Time Alcohol dependence 70142954 Active 2024 Rylee Matamoros, SUAD, INCINERATOR PLANT LABORER [address], [place], [address] , [facility] 5 11:05:22 Alcohol abuse 40263089 Active 2020 Leanne House [facility] 4 14:53:53 Recurrent major depression in partial remission 95369138 Active 2015 Leanne House [facility] 4 14:53:53 Anxiety 95784680 Active 2020 Leanne House [facility] 4 14:53:53 Essential hypertension 44797381 Active 2020 Leanne House [facility] 4 14:53:53 Problem Notes None recorded. Medical Equipment None Reported. Allergies Allergen ID Allergen Name Allergen Category Reaction Reaction Severity Criticality Documentation Date Start Date Code Code System Note Provider Name and Address Organization Details Recorded Time 2554 erythromy lorene medicatio n itching rash Not available Not available Not available 11/10/20242015 4053 RxNorm Leanne House [facility] 4 14:53:38 2555 azithromy lorene medicatio n Not available Not available Not available 11/10/2024 93979 RxNorm Jeancarlospennymichelle Aishwarya [facility] 4 15:09:35 Medications Name Sig Start Date Stop Date Status Note LastModified by Organization Details LastModified Time Ativan 1 mg tablet 1 mg 3 times a day by oral route. 10/09 completed Not Available Not Available Not Available naltrexone 50 mg tablet TAKE 1 TABLET BY MOUTH EVERY DAY active Not Available Not Available No t Available propranolol 10 mg tablet Take 1 tablet twice a day by oral route as needed for 90 days, for anxiety. 2024 active Not Available Not Available Not Avai lable lorazepam 0.5 mg tablet 10/03 completed Not Available Not Available Not Available lorazepam 2 mg tablet 11/10 completed Not Available Not Available Not Available pantoprazol e 40 mg tablet,mike yed release TAKE 1 TABLET BY MOUTH EVERY MORNING ON AN EMPTY STOMACH. 2024 active Not Available Not Available Not Avai lable valsartan 320 mg tablet TAKE 1 TABLET DAILY active Not Available Not Available No t Available gabapentin 300 mg capsule 11/10 completed Not Available Not Available Not Available ondansetron 4 mg disintegrat ing tablet DISSOLVE 1 TABLET ON TONGUE EVERY 8 (EIGHT) HOURS NEEDED FOR NAUSEA FOR UP TO 15 DAYS. 11/10 completed Not Available Not Available Not Available fluoxetine 20 mg capsule TAKE 1 CAPSULE BY MOUTH EVERY DAY 11/10 completed Not Available Not Available Not Available acamprosate 333 mg tablet,mike yed release Take 1 tablet twice a day by oral route for 90 days. 2024 active Not Available Not Available Not Avai lable Vivitrol 380 mg intramuscul ar suspension, extended release active Not Available Not Available Not Available Trintellix 10 mg tablet TAKE 1 TABLET BY MOUTH EVERY DAY active Not Available Not Available No t Available Vitals Date Recorded Body weight Provider Name an d Address Organization Details Last Updated DateTime 11/10/2024 43746.91 g Leanne House [facility] 11/10/2024 14:53:34 Date Recorded Body mass index (BMI) Body height Body temperature Heart rate Oxygen saturation Oxygen saturation in Arterial blood by Pulse oximetry Systolic blood pressure Diastolic blood pressure Provider Name and Address Organization Details Last Updated DateTime 28.2 kg/m2 170.18 cm 98.3 [degF] 94 /min 98 % 98 % 132 mm[Hg] 84 mm[Hg] Reji Neff [facility] 15:11:27 Social History None recorded. Functional Status None recorded. Mental Status None recorded. Family History Relationship Description Onset Age of this Age Resolved Age Notes LastModified by Organization Details LastModified Time Maternal Grandmother Anxiety disorder Anxiet y disord er; Member s: Matern al Grandm other Not available 02/02/2025 04:01:51 Maternal Grandmother Alcohol abuse Alcoho l abuse; Member s: Matern al Grandm other Not available 02/02/2025 04:01:52 Mother Hypothyroidi sm Hypoth yroidi sm; Member s: Mother Not available 02/02/2025 04:01:52 Mother Hyperlipidem ia Hyperl ipidem ia; Member s: Mother Not available 02/02/2025 04:01:52 Brother Problem No Sig Med Hx; Member s: Brothe r Not available 02/02/2025 04:01:52 Paternal Uncle Hemochromato sis Hemoch romato sis; Member s: Patern al Uncle Not available 02/02/2025 04:01:52 Father Hyperlipidem ia Hyperl ipidem ia; Member s: Father Not available 02/02/2025 04:01:52 Father Bipolar disorder Bipola r disord er; Member s: Father Not available 02/02/2025 04:01:52 Paternal Grandmother Problem No Sig Med Hx; Member s: Malikn al Grandm other Not available 02/02/2025 04:01:52 Notes:Father: Hypertension M aternal Grandfather: Bladder Cancer Maternal Grandmother: Hypertension, Stroke Mother: Hypertension Paternal Grandfather: Lung cancer, Stroke Sister: OCD Medical History No medical history recorded. Immunizations Vaccine Type Date Status Note Provider Nam e and Address Organization Details Recorded Time Influenza, MDCK, quadrivalent, PF 2 completed Leanne granados, [facility] 11/10/2024 14:53:57 COVID-19, mRNA, LNP-S, PF, 30 mcg/0.3 mL dose 1 completed Leanne granados, [facility] 11/10/2024 14:53:57 COVID-19, mRNA, LNP-S, PF, 30 mcg/0.3 mL dose 1 completed Leanne granados, [place] [facility] 11/10/2024 14:53:57 Influenza, split virus, trivalent, preservative 6 completed Leanne granados, [facility] 11/10/2024 14:53:57 COVID-19, mRNA, LNP-S, PF, 100 mcg/0.5mL dose or 50 mcg/0.25mL dose 1 completed Not Available [facility] 01/07/2025 10:33:59 Past Encounters Encounter ID Performer Location Encounter Start Date Encounter Closed Date Diagnosis/Indication Diagnosis SNOMED-CT Code Diagnosis ICD10 Code Diagnosis Note [id number] Rylee Matamoros DNP, INCINERATOR PLANT LABORER [id number] [address] [place] [address] 11/10/2024 14:44:45 11/10/2024 15:48:23 Essential hypertension 86120456 I10 Anxiety 70899322 F41.9 Health Concerns Section Related Observation LastModified by Organization Detai ls LastModified Time None Recorded Concern Status LastModified by Organization Details LastModified Time None Recorded Advance Directives Directive None Recorded Payers Encounter Date Sequence Insurance Name Policy Number Policy Isabel Covered Member ID Isabel Member ID Guarantor Name 11/10/2024 1 BCBS-ID: [facility] [id number] Pierce Powers [id number] Pierce Powers Notes Date Note Type Note Provider Name and Address Organization Details Recorded Time 11/10/2024 text/html Pt is here for b p check, he is prescribed valsartan 320mg daily. Pt's bp was 134/86 on 09/21, and is 132/84 today. Pt also states that he has been having issues trying to get his vivitrol injection and was wondering if he should try to get it through the [facility]. Pt would also like to know if he can be started back on propanolol to help with his anxiety. Pt would also like to discuss the results of his scrotum ultrasound.Pt states that the last time he drank was 3 weeks ago and he is now sober again and trying to eat a better diet. Rylee Matamoros DNP, INCINERATOR PLANT LABORER [address] [place], [address], [place] [facility] 12/01/2024 12:17:49
--- OUTSIDE RECORDS SUMMARY | 2025-03-19 09:44 | XMS_ITS | Clinical Summary ---
Author Organization [facility] Address [address] [place] [address] Care Team Providers Care Hot Sealing Machine Operator Name Role Phone Unavailable Primary Care Provider [...] Noted Date Diagnosed Date Recurrent major depression i n partial remission ([facility] V24) 12/07/2015 Immunizations Immunization Administration Dates Next Due INFLUENZA, SEASONAL, INJECTABLE [...]
--- OUTSIDE RECORDS SUMMARY | 2025-03-19 09:45 | XMS_ITS | Clinical Summary ---
Author Organization [facility] Address [address] [place] [address] Care Team Providers Care Motorboat Mechanic Inboard Name Role Phone Rylee Matamoros Hema CRUZ Primary Care Provider [phone] Allergies Active Allergy Reactions Criticality Noted Date [...] often do you attend chur ch or pentecostal services? Never 08/31/2022 Do you belong to any clubs o r organizations such as christianity groups, unions, fraternal or athletic groups, or [...] place to sleep or slept in a nursing home (including now)? No 08/31/2022 Sex and Gender [...] age to complete this topic Care Teams Motorboat Mechanic Inboard Relationship Specialty Start Date End Date Rylee Matamoros APRN PCP - General Pediatrics 08/04/21
--- OUTSIDE RECORDS SUMMARY | 2025-03-19 09:45 | XMS_ITS | Clinical Summary ---
Author Organization [facility] Address [address] [place] [address] Phone Care Team Providers Care Stem Mounter Name Role Phone Rylee Matamoros LEAD ADVISOR Primary Care Provider [phone] Allergies Active Allergy Reactions Criticality Noted Date [...] 08/07/2021 Essential hypertension 08/07/2021 Recurrent major depression i n partial remission (CMS/HCC V24) 12/07/2015 Immunizations Name Administration Dates Next Due [...] Td Vaccines (1 - Tdap) 2002 Hepatitis B Vaccines (1 of 3 [...] on patient's age to complete this topic Hepatitis A Vaccines Aged Out No long er eligible based on patient's age to complete this topic IPV Vaccines Aged Out No longer eligi ble based on patient's age to complete this topic MMR Vaccines Aged Out No longer eligi ble based on patient's age to complete this topic Meningococcal ACWY Vaccine Aged Out N o longer eligible based on patient's age to complete this topic Meningococcal B Vaccine Aged Out No l onger eligible based on patient's age to complete [...] mmol/L LAB CHEMISTRY METHOD 10/03/2024 5:09 PM [facility] Potassium 4.2 3.5 - 5.1 mmol/L LAB CHEMISTRY METHOD 10/03/2024 5:09 PM [facility] Chloride 100 98 - 107 mmol/L LAB CHEMISTRY METHOD 10/03/2024 5:09 PM [facility] CO2 29 24 - 32 mmol/L LAB CHEMISTRY METHOD 10/03/2024 5:09 PM [facility] Anion Gap 10 5 - 14 LAB CHEMISTRY METHOD 10/03/2024 5:09 PM [facility] Glucose 93 70 - 199 mg/dL LAB CHEMISTRY METHOD 10/03/2024 5:09 PM [facility] BUN 15 9 - 20 mg/dL LAB CHEMISTRY METHOD 10/03/2024 5:09 PM [facility] Creatinine 0.94 0.70 - 1.30 mg/dL LAB CHEMISTRY METHOD 10/03/2024 5:09 PM [facility] eGFR 104 >=60 mL/min/1. 73m2 LAB CHEMISTRY METHOD 10/03/2024 5:09 PM [facility] Comment:Calculation based on the??Chronic Kidney Disease Epidemiology Collaboration (CKD-EPI) equation refit??without adjustment for race. BUN/Creatinine Ratio 16.0 12.0 - 20.0 LAB CHEMISTRY METHOD 10/03/2024 5:09 PM [facility] Calcium 9.2 8.4 - 10.2 mg/dL LAB CHEMISTRY METHOD 10/03/2024 5:09 PM [facility] AST (SGOT) 23 5 - 40 unit/L LAB CHEMISTRY METHOD 10/03/2024 5:09 PM [facility] ALT (SGPT) 24 7 - 52 unit/L LAB CHEMISTRY METHOD 10/03/2024 5:09 PM [facility] Alkaline Phosphatase 70 34 - 104 unit/L LAB CHEMISTRY METHOD 10/03/2024 5:09 PM [facility] Total Protein 7.0 6.4 - 8.5 g/dL LAB CHEMISTRY METHOD 10/03/2024 5:09 PM [facility] Albumin 4.4 3.5 - 5.0 g/dL LAB CHEMISTRY METHOD 10/03/2024 5:09 PM [facility] Total Bilirubin 0.9 0.3 - 1.0 mg/dL LAB CHEMISTRY METHOD 10/03/2024 5:09 PM [facility] Blood Venous blood specimen / Unknown Venipuncture / Unknown 10/03/2024 4:44 PM EST 10/03/2024 4:48 PM EST Jesus Monterroso MD LAB BLOOD ORDERABLES Final Result [facility] [address] [place] [address], [place] [phone] * Depression Screening (08/31/2022) [facility] Depression Screening abstracted Historical Provider HEALTH MAINTENANCE Final Result from Last 3 Months or Most Recently Relevant to Health Maintenance Insurance [facility] Care Teams Stem Mounter Relationship Specialty Start Date End Date Rylee Matamoros NP [address] [place] [address] PCP - General Family Medicine 12/11/22
--- OUTSIDE RECORDS SUMMARY | 2025-03-19 09:45 | XMS_ITS | Referral Summary ---
Author Organization [facility] Address [address] [place] [address] Care Team Providers Care Sanitation Officer Name Role Phone Rylee Matamoros Primary Care Provider Allergies Active Allergy Reactions Criticality Noted Date [...] on file Insurance [address] [place] [id number] [employer] Care Teams Sanitation Officer Relationship Specialty Start Date End Date Rylee Matamoros [address] [place] [address] PCP - General Pediatrics 11/17/23
--- OUTSIDE RECORDS SUMMARY | 2025-03-19 09:45 | XMS_ITS | Encounter Summary ---
Author Organization [facility] Address [address] [place] [address] Care Team Providers Care Jig Bore Tool Maker Name Role Phone Rylee Matamoros BRIM CUTTER Primary Care Provider [phone] Encounter Details Date Type Department Care Team (Late st Contact Info) Description 09/21/2024 10:45 AM EDT Hospital Encounter TH HISTORIC ENCOUNTERS EASTERN CONVERSION ONLY Rylee Matamoros, BRIM CUTTER [address] [place], [place] [address] Social History Tobacco Use Types Packs/Day Years [...] he needs the injection rx sent to [facility] as they have it in stock. Pt states he has not f/u with the safety consultant yet or the eye doctor but will be calling them to get set up with an appt as the referrals were previously placed; he will be reaching out to [facility] & Dr. L[facility]ano at [facility]. Pt states he has been experiencing [...] TEAM Patient Care Team: Rylee Matamoros, BUSINESS TEACHER as PCP - General (Pediatrics) HISTORY OF [...] he needs the injection rx sent to [facility] as they have it in stock. Pt states he has not f/u with the safety consultant yet or the eye doctor but will be calling them to get set up with an appt as the referrals were previously placed; he will be reaching out to [facility] & Dr. Lozano at [facility]. 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 No deformities. Nontender sinuses. Erma nasal mucosa without boggy turbinate. Smelling intact. [...] the vivtrol injections will be sent to [facility]. Pt received flu [...] Encounter Procedures ??? US Scrotum with Doppler [facility] PT [id number] 09/22/24 Standing Status: Future Standing Expiration Date: [...] 09/28/2024 1:30 PM BINU US 2 RA-EUS [facility] Rad Dickf Rylee Matamoros APRN Family Nurse Practitioner [facility] 09/21/2024 documented in this encounter Plan of Treatment Not on file documented as of this encounter Visit Diagnoses Not on filedocumented in this encounter Care Teams Jig Bore Tool Maker Relationship Specialty Start Date End Date Rylee Matamoros NP [address] [place] [address] PCP - General Family Medicine 12/11/22 documented as of this encounter
[2025-03-19 10:03] VITALS: BP 138/98; PULSE 96; O2SAT 98; BMI 28.0
--- NOTE | 2025-03-19 10:09 | AM.OFFVISNUR ---
Vital Signs 03/19/25 10:03 Height 5 ft 8 in Weight 184 lb BMI 28.0 BP 138/98 H Pulse 96 Pulse Oximetry (%) 98 Intake Visit Reasons: Injection Allergies azithromycin Allergy (Verified 03/19/25 10:04) Hives Coding
--- NOTE | 2025-03-19 10:57 | AM.OFFVISNUR ---
Vital Signs 03/19/25 10:03 Height 5 ft 8 in Weight 83.461 kg BMI 28.0 BP 138/98 H Pulse 96 Pulse Oximetry (%) 98 Intake Visit Reasons: Injection Allergies azithromycin Allergy (Verified 03/19/25 10:04) Hives Nursing Note Pierce presents today for his 4 week AUD follow-up visit and Vivitrol injection. Pierce reports having slip-ups towards the end of each month that consists of 6-10 drinks a day over a couple of days. He shared that he knows that he has the oral naltrexone as back-up to the injection but tends to forget until afterwards. He shared that he has been through the [facility] program previously and AA is very triggering to him due to trauma around congregational that he experienced as a child. He is interested in the [facility] program. Informational brochure provided and referral will be sent. 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 He will see the provider on his next injection visit. Office Meds Vivitrol 380 mg intramuscular suspension,extended release Performing Provider: Angelica Peng MD Performing Location: [facility] Administered by: Samantha Easton RN on 03/19/25 11:07 Dose Route Admin Location Dispensed Lot Number Expiration Date [facility] [employer]izer [employer] Grader 380 mg IM RG 380 mg [id number] 10/24/27 26908-902-01 [employer] Comments: Pt reports no issue with previous injections and tolerated injection well. Educated on signs and symptoms of infection and urged to call [facility] with any questions or concerns. Pt verbalized understanding. Follow-up appointment made in 4 weeks to meet with provider and for next injection. Results AMB 14 Panel Urine Drug Screen Urine Marijuana (THC) Negative Last Edit by Lance Hernandez CMA on 03/19/25 10:40 Urine Cocaine Negative Last Edit by Lance Hernandez CMA on 03/19/25 10:40 Urine Morphine Negative Last Edit by Lance Hernandez CMA on 03/19/25 10:40 Urine Methamphetamine Negative Last Edit by Lance Hernandez CMA on 03/19/25 10:40 Urine Amphetamine Negative Last Edit by Lance Hernandez CMA on 03/19/25 10:40 Urine Benzodiazepine Negative Last Edit by Lance Hernandez CMA on 03/19/25 10:40 Urine Barbiturates Negative Last Edit by Lance Hernandez CMA on 03/19/25 10:40 Urine Methadone Negative Last Edit by Lance Hernandez CMA on 03/19/25 10:40 Urine Buprenorphine Negative Last Edit by Lance Hernandez, ABEL on 03/19/25 10:40 Urine Tricyclic Antidepressant Negative Last Edit by Lance Hernandez CMA on 03/19/25 10:40 Urine MDMA Negative Last Edit by Lance Hernandez CMA on 03/19/25 10:40 Urine Oxycodone Negative Last Edit by Lance Hernandez CMA on 03/19/25 10:40 Urine Phencyclidine Negative Last Edit by Lance Hernandez CMA on 03/19/25 10:40 Urine Propoxyphene Negative Last Edit by Lance Hernandez CMA on 03/19/25 10:40 Assessment & Plan Assessment & Plan Orders: Orders AMB Naltrexone Injection - Practice Supplied Today F10.20 - Alcohol dependence, uncomplicated AMB 14 Panel Urine Drug Screen Today Z51.81 - Encounter for therapeutic drug level monitoring Coding
--- NOTE | 2025-03-19 11:18 | AM.OFFVISNUR ---
Vital Signs 03/19/25 10:03 Height 5 ft 8 in Weight 83.461 kg BMI 28.0 BP 138/98 H Pulse 96 Pulse Oximetry (%) 98 Intake Visit Reasons: Injection Allergies azithromycin Allergy (Verified 03/19/25 10:04) Hives Office Meds Vivitrol 380 mg intramuscular suspension,extended release Performing Provider: Angelica Peng MD Performing Location: [facility] Administered by: Samantha Easton RN on 03/19/25 11:07 Dose Route Admin Location Dispensed Lot Number Expiration Date [facility] Strip Feeder 380 mg IM RG 380 mg [id number] 10/24/27 18934-313-18 [employer] Comments: Pt reports no issue with previous injections and tolerated injection well. Educated on signs and symptoms of infection and urged to call [facility] with any questions or concerns. Pt verbalized understanding. Follow-up appointment made in 4 weeks to meet with provider and for next injection. Results AMB 14 Panel Urine Drug Screen Urine Marijuana (THC) Negative Last Edit by Lance Hernandez CMA on 03/19/25 10:40 Urine Cocaine Negative Last Edit by Lance Hernandez CMA on 03/19/25 10:40 Urine Morphine Negative Last Edit by Lance Hernandez CMA on 03/19/25 10:40 Urine Methamphetamine Negative Last Edit by Lance Hernandez CMA on 03/19/25 10:40 Urine Amphetamine Negative Last Edit by Lance Hernandez CMA on 03/19/25 10:40 Urine Benzodiazepine Negative Last Edit by Lance Hernandez CMA on 03/19/25 10:40 Urine Barbiturates Negative Last Edit by Lance Hernandez CMA on 03/19/25 10:40 Urine Methadone Negative Last Edit by Lance Hernandez CMA on 03/19/25 10:40 Urine Buprenorphine Negative Last Edit by Lance Hernandez CMA on 03/19/25 10:40 Urine Tricyclic Antidepressant Negative Last Edit by Lance Hernandez CMA on 03/19/25 10:40 Urine MDMA Negative Last Edit by Lance Hernandez CMA on 03/19/25 10:40 Urine Oxycodone Negative Last Edit by Lance Hernandez CMA on 03/19/25 10:40 Urine Phencyclidine Negative Last Edit by Lance Hernandez CMA on 03/19/25 10:40 Urine Propoxyphene Negative Last Edit by Lance Hernandez CMA on 03/19/25 10:40 Assessment & Plan Assessment & Plan Orders: Orders AMB Naltrexone Injection - Practice Supplied Today F10.20 - Alcohol dependence, uncomplicated AMB 14 Panel Urine Drug Screen Today Z51.81 - Encounter for therapeutic drug level monitoring Coding
== END 2025-03-19 10:32 | disposition home or self-care (01) ==
LOC: HO.HCC 09:32
PROVIDERS: PCP Nurse Practitioner
DX: Z51.81 Encounter for therapeutic drug level monitoring (principal); F10.20 Alcohol dependence, uncomplicated

== ENCOUNTER → 2025-03-19 09:32 | Outpatient (BNVA) | payer OTHER, SELFPAY | PROVIDERS: PCP Nurse Practitioner | DX: F10.20 Alcohol dependence, uncomplicated (principal) | CPT/HCPCS: 80307; 96372; J2315 ==

== ENCOUNTER 2025-04-16 13:38 | Outpatient (AMB) | payer OTHER, SELFPAY ==
--- OUTSIDE RECORDS SUMMARY | 2025-04-16 13:43 | XMS_ITS | Clinical Summary ---
Author Organization [address] Address [address] [place] [address] Care Team Providers Care Health Care Social Worker Name Role Phone Unavailable Primary Care Provider [...]
--- NOTE | 2025-04-16 14:11 | A.OFFVIS_ITS ---
Intake Visit Reasons: Injection vivitrol Allergies azithromycin Allergy (Verified 04/16/25 14:11) Hives HPI HPI Injection vivitrol: Details: He has been drinking much less,about 20%. He feels well. [facility] Social History Alcohol intake: current Alcohol intake frequency: 3 or more drinks per day Alcohol type: hard liquor Review of Systems Const All systems reviewed & are unremarkable except as noted in HPI and below Physical Exam Const General: cooperative Assessment & Plan Assessment & Plan (1) Alcohol use disorder, moderate, dependence: Comment: He has been doing well. Code(s): F10.20 - Alcohol dependence, uncomplicated Category: Medical Plan: Continue per plan. Coding Level of Care Code Est Pt Level 3 (05051) Diagnoses Alcohol use disorder, moderate, dependence F10.20
== END 2025-04-16 14:51 | disposition home or self-care (01) ==
LOC: HO.HCC 13:38
PROVIDERS: PCP Nurse Practitioner; Visit Provider Internal Medicine
DX: F10.20 Alcohol dependence, uncomplicated (principal)
CPT/HCPCS: 99213

== ENCOUNTER → 2025-04-16 13:38 | Outpatient (BNVA) | payer OTHER, SELFPAY | PROVIDERS: PCP Nurse Practitioner; Visit Provider Internal Medicine | DX: F10.20 Alcohol dependence, uncomplicated (principal) | CPT/HCPCS: 96372; J2315 ==

== ENCOUNTER 2025-05-17 11:11 | Outpatient (AMB) | payer OTHER, SELFPAY ==
--- NOTE | 2025-04-28 13:58 | A.OFFVISCC_ITS ---
Vital Signs 05/17/25 11:22 Height 5 ft 8 in BP 149/106 H Blood Pressure Location Lt brachial Position Sitting Pulse 89 Pulse Source Pulse Oximeter Pulse Oximetry (%) 98 Oxygen Delivery Method Room Air Intake Visit Reasons: MAT Allergies azithromycin Allergy (Verified 05/17/25 11:23) Hives Physical Exam Vital Signs: Last Vital Signs Pulse 89 05/17/25 11:22 BP 149/106 H 05/17/25 11:22 Pulse Ox 98 05/17/25 11:22 Oxygen Delivery Method Room Air 05/17/25 11:22 Office Meds Vivitrol 380 mg intramuscular suspension,extended release Performing Provider: Angelica Peng MD Performing Location: [facility] Administered by: Angelica Peng MD on 05/17/25 12:26 Dose Route Admin Location Dispensed Lot Number Expiration Date [facility] Process Validation Engineer 380 mg IM left buttock 380 mg [id number] 09/24/27 19483-429-83 [employer] Total Dispensed Waste 380 mg 0 % PFSH Social History Alcohol intake: current Alcohol intake frequency: 3 or more drinks per day Alcohol type: hard liquor Assessment & Plan Assessment & Plan (1) Alcohol use disorder, moderate, dependence: Comment: He has been doing well. Code(s): F10.20 - Alcohol dependence, uncomplicated Category: Medical Orders: Orders AMB Naltrexone Injection - Practice Supplied Today F10.20 - Alcohol dependence, uncomplicated AMB Naltrexone Injection - Practice Supplied Today F10.20 - Alcohol dependence, uncomplicated Medications: New naltrexone microspheres ER 380 mg IM Q4W 30 days 1 ea 5RF disulfiram 250 mg PO DAILY 30 tabs 5RF 30 days naltrexone microspheres ER 380 mg IM Q4W 1 ea 5RF 30 days Vivitrol ER (naltrexone microspheres) 380 mg IM ONCE 1 ea 0RF NS F10.20 - Alcohol dependence, uncomplicated
[2025-05-17 11:22] VITALS: BP 149/106; PULSE 89; O2SAT 98
--- OUTSIDE RECORDS SUMMARY | 2025-05-17 12:47 | XMS_ITS | Clinical Summary ---
Author Organization [address] Address [address] [place] [address] Care Team Providers Care Filter Tank Tender Helper Head Name Role Phone Unavailable Primary Care Provider [...] left testicle 09/12/2024 Testicular lump 09/12/2024 Immunizations Immunization Administration Dates Next Due Influenza, MDCK, trivalent, [...] 96 09/12/2024 2:29 PM EDT Temperature 36.6 C (97.9 F) 09/12/2024 2:29 PM EDT Respiratory Rate 16 09/12/2024 2:29 PM EDT [...] (NAIC) Type:Not on file Address: [address] [place] [id number]
== END 2025-05-17 11:55 | disposition home or self-care (01) ==
LOC: HO.HCC 11:12
PROVIDERS: PCP Nurse Practitioner; Visit Provider Internal Medicine
DX: F10.20 Alcohol dependence, uncomplicated (principal)

== ENCOUNTER → 2025-05-17 11:11 | Outpatient (BNVA) | payer OTHER, SELFPAY | PROVIDERS: PCP Nurse Practitioner; Visit Provider Internal Medicine | DX: F10.20 Alcohol dependence, uncomplicated (principal) | CPT/HCPCS: 96372; J2315 ==

== ENCOUNTER 2025-06-10 13:54 | Outpatient (AMB) | payer OTHER, SELFPAY ==
--- OUTSIDE RECORDS SUMMARY | 2024-09-08 07:33 | XMS_ITS | Encounter Summary ---
Author Organization [facility] Address [address] [place] [address] Care Team Providers Care Machine Bander And Cellophaner Name Role Phone Rylee Matamoros MOBILE APPLICATION ENGINEER Primary Care Provider [phone] Encounter Details Date Type Department Care Team (Late st Contact Info) Description 09/08/2024 7:33 AM EDT Hospital Encounter TH HISTORIC ENCOUNTERS EASTERN CONVERSION ONLY Rylee Matamoros, MOBILE APPLICATION ENGINEER [address] [place], [place] [phone] Social History Tobacco Use Types Packs/Day Years [...] on filedocumented in this encounter Care Teams Machine Bander And Cellophaner Relationship Specialty Start Date End Date Rylee Matamoros, SALVATORE [address] [place] [address] PCP - General Family Medicine 12/11/22 documented as of this encounter
--- NOTE | 2025-06-10 13:56 | AM.OFFVISNUR ---
Vital Signs 06/10/25 14:20 Height 5 ft 8 in Weight 83.461 kg BMI 28.0 BP 122/76 Pulse 88 Pulse Oximetry (%) 98 Intake Visit Reasons: Injection Allergies azithromycin Allergy (Verified 06/10/25 14:22) Hives Nursing Note Pierce presents for his 4 week Vivitrol injection. Pierce is alert and oriented x 4 and presents with calm, appropriate affect. He reports consistent ups and downs in his recovery associated, he feels with the compliance of his other medications. Pierce states that he knows that abstinence may be the only course of action that will work concerning his use disorder and he is looking at ways to increase compliance with both his medications and not using alcohol-l to disrupt the repetitive cycles which he is aware he is going in. He was scheduled and set to meet with his assistant golf coach this morning when he was notified that he could not due to the fact that he lives in [place], [place] and outside of [facility], will follow up with other resources in his residence area and notify him. Office Meds Vivitrol 380 mg intramuscular suspension,extended release Performing Provider: Angelica Peng MD Performing Location: [facility] Administered by: Samantha Easton RN on 06/10/25 14:38 Dose Route Admin Location Dispensed Lot Number Expiration Date [facility] [employer] Diving Teacher 380 mg IM RG 380 mg [id number] 11/24/27 20816-102-72 [employer] Total Dispensed Waste 380 mg 0 % Comments: Pt here for 4 week Vivitrol 380 mg injection. Pt denies any concern with previous injections and tolerated injection well. Educated on signs and symptoms of infection and encouraged to call [facility] with any related questions or concerns, pt verbalized understanding. Assessment & Plan Assessment & Plan Orders: Orders AMB Naltrexone Injection - Practice Supplied Today F10.20 - Alcohol dependence, uncomplicated Coding
[2025-06-10 14:20] VITALS: BP 122/76; PULSE 88; O2SAT 98; BMI 28.0
--- OUTSIDE RECORDS SUMMARY | 2025-06-10 14:37 | XMS_ITS | Clinical Summary ---
Author Organization [facility] Address [address] [place] [address] Care Team Providers Care Regional Clinical Director Name Role Phone Rylee Matamoros Primary Care Provider [phone] Allergies Active Allergy Reactions Criticality Noted Date [...] 91 11/17/2023 9:30 PM EST Temperature 36.7 C (98.1 F) 11/17/2023 7:43 PM EST Respiratory Rate 24 11/17/2023 9:30 PM EST [...] Vaccines (1 - Tdap) 2005 COVID-19 Vaccine (4 - 2023-2 5 season) 2024 11/05/2021, 01/23/2021, 12/26/2020 Alcohol/Substance Use Screening 11/25/2024 Depression Screening and Follow-Up 11/25/2024 Social Drivers of Health Annual Screening 11/25/2024 Influenza Vaccine (#1) 2025 2, 12/07/2015 RSV Vaccine (60+ years old and patients) (1 - 1-dose 75+ series) 2058 Pneumococcal Vaccine: Pediatric (0-5 Years) and At-Risk Patients (6-50 Years) Aged Out No longer eligible based on patient's age to complete this topic Insurance Care Teams Regional Clinical Director Relationship Specialty Start Date End Date Rylee Matamoros PCP - General Pediatrics 11/17/23
--- OUTSIDE RECORDS SUMMARY | 2025-06-10 14:37 | XMS_ITS | Clinical Summary ---
Author Organization [address] Address [address] [place] [address] Care Team Providers Care Client Reporting Associate Name Role Phone Unavailable Primary Care Provider [...] on file Address: [address] [place] [phone]
--- OUTSIDE RECORDS SUMMARY | 2025-06-10 14:38 | XMS_ITS ---
[facility] Name [facility] Organization Unknown Results Test Name/Text Value Interpretation Date Range Source Lipase SerPl-cCnc 34.0 unit/L Normal 10/03/2024 11 - 82 [facility] Ethanol SerPl-mCnc 45.0 mg/dL Above high normal 10/03/2024 0 - 10 [facility] ALT SerPl-cCnc 24.0 unit/L Normal 10/03/2024 7 - 52 [facility] Potassium SerPl-sCnc 4.2 mmol/L Normal 10/03/2024 3.5 - 5.1 [facility] Chloride SerPl-sCnc 100.0 mmol/L Normal 10/03/2024 98 - 1 07 [facility] BUN SerPl-mCnc 15.0 mg/dL Normal 10/03/2024 9 - 20 [facility] eGFRcr SerPlBld CKD-EPI 2020 104.0 mL/min/1.73m2 Normal 10/03/2024 - [facility] BUN/Creat SerPl 16.0 Normal 10/03/2024 12 - 20 [facility] CO2 SerPl-sCnc 29.0 mmol/L Normal 10/03/2024 24 - 32 [facility] Anion Gap SerPl-sCnc 10.0 Normal 10/03/2024 5 - 14 [facility] Albumin SerPl-mCnc 4.4 g/dL Normal 10/03/2024 3.5 - 5 [facility] AST SerPl-cCnc 23.0 unit/L Normal 10/03/2024 5 - 40 [facility] Bilirub SerPl-mCnc 0.9 mg/dL Normal 10/03/2024 0.3 - 1 [facility] ALP SerPl-cCnc 70.0 unit/L Normal 10/03/2024 34 - 104 [facility] Sodium SerPl-sCnc 139.0 mmol/L Normal 10/03/2024 135 - 14 5 [facility] Prot SerPl-mCnc 7.0 g/dL Normal 10/03/2024 6.4 - 8.5 [facility] Glucose SerPl-mCnc 93.0 mg/dL Normal 10/03/2024 70 - 199 [facility] Creat SerPl-mCnc 0.94 mg/dL Normal 10/03/2024 0.7 - 1.3 C [facility] Calcium SerPl-mCnc 9.2 mg/dL Normal 10/03/2024 8.4 - 10.2 [facility] Hct VFr Bld Auto 43.7 % Normal 10/03/2024 40 - 54 [facility] Monocytes/leuk NFr Bld Auto 7.7 % Normal 10/03/2024 2 - 12 [facility] Neutrophils # Bld Auto 4.97 K/mcL Normal 10/03/2024 1.8 - 7.8 [facility] RDW RBC Auto-Rto 12.4 % Normal 10/03/2024 12.1 - 17.7 [facility] MCV RBC Auto 84.7 FL Normal 10/03/2024 78 - 100 [facility] Platelet # Bld Auto 301.0 K/mcL Normal 10/03/2024 150 - 4 50 [facility] Eosinophil/leuk NFr Bld Auto 0.6 % Normal 10/03/2024 0 - 6 [facility] Basophils # Bld Auto 0.07 K/mcL Normal 10/03/2024 0 - 0.2 [facility] Lymphocytes # Bld Auto 1.56 K/mcL Normal 10/03/2024 1 - 3.2 [facility] Lymphocytes/leuk NFr Bld Auto 21.6 % Normal 10/03/2024 20 - 48 [facility] Neutrophils/leuk NFr Bld Auto 68.7 % Normal 10/03/2024 44 - 74 [facility] MCHC RBC Auto-mCnc 35.5 g/dL Normal 10/03/2024 32 - 36 [facility] Basophils/leuk NFr Bld Auto 1.0 % Normal 10/03/2024 0 - 2 [facility] Monocytes # Bld Auto 0.56 K/mcL Normal 10/03/2024 0 - 0.8 [facility] MCH RBC Qn Auto 30.0 pcg Normal 10/03/2024 25 - 33 [facility] Eosinophil # Bld Auto 0.04 K/mcL Normal 10/03/2024 0 - 0.5 [facility] WBC # Bld Auto 7.2 K/mcL Normal 10/03/2024 4 - 10.5 [facility] Hgb Bld-mCnc 15.5 g/dL Normal 10/03/2024 13.5 - 18 [facility] PMV Bld Auto 10.3 FL Normal 10/03/2024 7.4 - 11.4 [facility] RBC # Bld Auto 5.16 M/mcL Normal 10/03/2024 4.7 - 6 [facility] CALCIUM SERPL MCNC 9.3 mg/dL Normal 09/08/2024 8.4 - 10.2 [facility] ALP SERPL-CCNC 76.0 U/L Normal 09/08/2024 34 - 104 [facility] POTASSIUM SERPL SCNC 4.8 mmol/L Normal 09/08/2024 3.5 - 5.1 [facility] GLUCOSE SERPL MCNC 79.0 mg/dL Normal 09/08/2024 70 - 199 [facility] AST SERPL CCNC 18.0 U/L Normal 09/08/2024 5 - 40 [facility] SODIUM SERPL SCNC 140.0 mmol/L Normal 09/08/2024 135 - 14 5 [facility] CHLORIDE SERPL SCNC 101.0 mmol/L Normal 09/08/2024 98 - 1 07 [facility] CREAT SERPL MCNC 1.0 mg/dL Normal 09/08/2024 0.7 - 1.3 CT [facility] Glomerular filtration rate/1.73 sq M. predicted 97.0 Normal 09/08/2024 60 - [facility] PROT SERPL MCNC 7.2 g/dL Normal 09/08/2024 6.4 - 8.5 [facility] ALBUMIN SERPL BCG MCNC 4.7 g/dL Normal 09/08/2024 3.5 - 5 [facility] BILIRUB SERPL MCNC 0.9 mg/dL Normal 09/08/2024 0.3 - 1 [facility] ALT SERPL CCNC 18.0 U/L Normal 09/08/2024 7 - 52 [facility] HCO3 SER SCNC 29.0 mmol/L Normal 09/08/2024 24 - 32 [facility] BUN SERPL MCNC 12.0 mg/dL Normal 09/08/2024 9 - 20 [facility] ANION GAP SERPL SCNC 10.0 mmol/L Normal 09/08/2024 5 - 14 [facility] LYMPHOCYTES NFR BLD AUTO 23.0 % Normal 09/08/2024 20 - 48 [facility] HCT VFR BLD AUTO 44.4 % Normal 09/08/2024 40 - 54 [facility] MONOCYTES NFR BLD AUTO 7.2 % Normal 09/08/2024 2 - 12 [facility] DIFFERENTIAL TYPE AUTOMATED Normal 09/08/2024 C [facility] MCHC RBC AUTO MCNC 35.0 g/dL Normal 09/08/2024 32 - 36 [facility] LYMPHOCYTES NO. BLD AUTO 1.4 K/uL Normal 09/08/2024 1 - 3.2 [facility] MCH RBC QN AUTO 31.1 pg Normal 09/08/2024 25 - 33 [facility] MCV RBC AUTO 88.9 fL Normal 09/08/2024 78 - 100 [facility] MG PMV BLD AUTO 10.4 fL Normal 09/08/2024 7.4 - 11.4 [facility] EMG NEUTROPHILS NO. BLD AUTO 4.1 K/uL Normal 09/08/2024 1.8 - 7.8 [facility] RBC NO. BLD AUTO 5.0 M/uL Normal 09/08/2024 4.7 - 6 CT [facility] WBC NO. BLD AUTO 6.1 K/uL Normal 09/08/2024 4 - 10.5 CT [facility] MONOCYTES NO. BLD AUTO 0.4 K/uL Normal 09/08/2024 0 - 0.8 [facility] HGB BLD MCNC 15.6 g/dL Normal 09/08/2024 13.5 - 18 [facility] MG EOSINOPHIL NFR BLD AUTO 2.3 % Normal 09/08/2024 0 - 6 [facility] EOSINOPHIL NO. BLD AUTO 0.1 K/uL Normal 09/08/2024 0 - 0.5 [facility] BASOPHILS IN BLOOD BY AUTOMATED COUNT 0.1 K/uL Normal 09/08/2024 0 - 0.2 [facility] BASOPHILS NFR BLD AUTO 1.2 % Normal 09/08/2024 0 - 2 [facility] PLATELET NO. BLD AUTO 260.0 K/uL Normal 09/08/2024 150 - 450 [facility] RDW RBC AUTO RTO 13.0 % Normal 09/08/2024 12.1 - 17.7 [facility] NEUTROPHILS NFR BLD AUTO 66.3 % Normal 09/08/2024 44 - 74 [facility] LDLc SerPl Calc-mCnc 122.0 mg/dL Normal 09/08/2024 50 - 130 [facility] CHOLEST SERPL-MCNC 216.0 mg/dL Above high normal 09/08/2024 0 - 200 [facility] HDLC SERPL-MCNC 60.0 mg/dL Normal 09/08/2024 32 - 70 [facility] TRIGL SERPL-MCNC 170.0 mg/dL Above high normal 09/08/2024 - 150 [facility] TSH SerPl DL<=0.005 mIU/L-aCnc 2.15 uIU/mL Normal 09/08/2024 0.45 - 5.33 [facility] LIPASE SERPL CCNC 42.0 U/L Normal 02/11/2024 11 - 82 C [facility] CREAT SERPL MCNC 0.9 mg/dL Normal 02/11/2024 0.7 - 1.3 CT [facility] CALCIUM SERPL MCNC 9.0 mg/dL Normal 02/11/2024 8.4 - 10.2 [facility] SODIUM SERPL SCNC 135.0 mmol/L Normal 02/11/2024 135 - 14 5 [facility] POTASSIUM SERPL SCNC 4.0 mmol/L Normal 02/11/2024 3.5 - 5.1 [facility] ANION GAP SERPL SCNC 10.0 mmol/L Normal 02/11/2024 5 - 14 [facility] Glomerular filtration rate/1.73 sq M. predicted 110.0 Normal 02/11/2024 60 - [facility] HCO3 SER SCNC 24.0 mmol/L Normal 02/11/2024 24 - 32 [facility] CHLORIDE SERPL SCNC 101.0 mmol/L Normal 02/11/2024 98 - 1 07 [facility] GLUCOSE SERPL MCNC 103.0 mg/dL Normal 02/11/2024 70 - 199 [facility] BUN SERPL MCNC 15.0 mg/dL Normal 02/11/2024 9 - 20 [facility] BILIRUB DIRECT SERPL MCNC 0.4 mg/dL Above high normal 02/11/2024 0 - 0.2 [facility] BILIRUB SERPL MCNC 1.7 mg/dL Above high normal 02/11/2024 0. 3 - 1 [facility] AMYLASE SERPL CCNC 27.0 U/L Below low normal 02/11/2024 29 - 103 [facility] BASOPHILS NFR BLD AUTO 1.0 % Normal 02/11/2024 0 - 2 [facility] HCT VFR BLD AUTO 43.0 % Normal 02/11/2024 40 - 54 [facility] LYMPHOCYTES NO. BLD AUTO 1.2 K/uL Normal 02/11/2024 1 - 3.2 [facility] LYMPHOCYTES NFR BLD AUTO 17.7 % Below low normal 02/11/2024 20 - 48 [facility] IMMATURE GRANULOCYTE, ABSOLUTE 0.02 k/uL Normal 02/11/2024 - 0.1 [facility] MCH RBC QN AUTO 30.1 pg Normal 02/11/2024 25 - 33 [facility] MCHC RBC AUTO MCNC 35.8 g/dL Normal 02/11/2024 32 - 36 [facility] MCV RBC AUTO 84.0 fL Normal 02/11/2024 78 - [facility] PLATELET NO. BLD AUTO 293.0 K/uL Normal 02/11/2024 150 - 450 [facility] EOSINOPHIL NFR BLD AUTO 0.9 % Normal 02/11/2024 0 - 6 [facility] EOSINOPHIL NO. BLD AUTO 0.1 K/uL Normal 02/11/2024 0 - 0.5 [facility] BASOPHILS IN BLOOD BY AUTOMATED COUNT 0.1 K/uL Normal 02/11/2024 0 - 0.2 [facility] RDW RBC AUTO RTO 11.6 % Below low normal 02/11/2024 12.1 - 17.7 [facility] NEUTROPHILS NO. BLD AUTO 4.8 K/uL Normal 02/11/2024 1.8 - 7.8 [facility] WBC NO. BLD AUTO 6.7 K/uL Normal 02/11/2024 4 - 10.5 CT [facility] MONOCYTES NO. BLD AUTO 0.6 K/uL Normal 02/11/2024 0 - 0.8 [facility] HGB BLD MCNC 15.4 g/dL Normal 02/11/2024 13.5 - 18 [facility] NUCLEATED RBC 0.0 % Normal 02/11/2024 0 - [facility] NEUTROPHILS NFR BLD AUTO 71.0 % Normal 02/11/2024 44 - 74 [facility] MONOCYTES NFR BLD AUTO 9.1 % Normal 02/11/2024 2 - 12 [facility] RBC NO. BLD AUTO 5.12 M/uL Normal 02/11/2024 4.7 - 6 [facility] IMMATURE GRANULOCYTE, PERCENT 0.3 % Normal 02/11/2024 0 - 1 [facility] PMV BLD AUTO 10.6 fL Normal 02/11/2024 7.4 - 11.4 [facility] MAGNESIUM SERPL MCNC 1.9 mg/dL Normal 02/11/2024 1.7 - 2.8 [facility] ALP SERPL-CCNC 70.0 U/L Normal 02/11/2024 34 - [facility] L[facility] L TO P CCNC 251.0 U/L Above high normal 02/11/2024 125 - 220 [facility] ALT SERPL CCNC 129.0 U/L Above high normal 02/11/2024 7 - 52 [facility] AST SERPL CCNC 107.0 U/L Above high normal 02/11/2024 5 - 40 [facility] MAGNESIUM SERPL MCNC 2.1 mg/dL Normal 10/20/2023 1.7 - 2.8 [facility] PT TIME PPP 11.8 sec Normal 10/20/2023 10.5 - 13.3 [facility] INR PPP 1.0 Normal 10/20/2023 0.8 - 1.1 [facility] BILIRUB DIRECT SERPL MCNC 0.2 mg/dL Normal 10/20/2023 0 - 0.2 [facility] BILIRUB SERPL MCNC 0.8 mg/dL Normal 10/20/2023 0.3 - 1 [facility] D DIMER DDU PPP EIA MCNC 155.0 ng/mL DDU Normal 10/20/2023 - 231 [facility] AMYLASE SERPL CCNC 38.0 U/L Normal 10/20/2023 29 - 103 [facility] Clarity Ur Refract.auto CLEAR Normal 10/20/2023 [facility] Leukocyte esterase Ur Ql Strip.auto NEGATIVE Normal 10/20/2023 - [facility] Glucose Ur Ql Strip.auto NEGATIVE Normal 10/20/2023 - [facility] Nitrite Ur Ql Strip.auto NEGATIVE Normal 10/20/2023 - [facility] pH Ur Strip.auto 6.0 Normal 10/20/2023 4.5 - 8 [facility] Sp Gr Ur Strip.auto 1.025 Normal 10/20/2023 1.005 - 1 .03 [facility] Ketones Ur Ql Strip.auto NEGATIVE Normal 10/20/2023 - [facility] Prot Ur Ql Strip.auto NEGATIVE Normal 10/20/2023 - [facility] Hgb Ur Ql Strip.auto NEGATIVE Normal 10/20/2023 - [facility] SPECIMEN SOURCE XXX URINE CLEAN CATCH Normal 10/20/2023 [facility] HGB BLD MCNC 15.0 g/dL Normal 10/20/2023 13.5 - 18 [facility] H IMMATURE GRANULOCYTE, ABSOLUTE 0.02 k/uL Normal 10/20/2023 - 0.1 [facility] MONOCYTES NFR BLD AUTO 8.4 % Normal 10/20/2023 2 - 12 [facility] PLATELET NO. BLD AUTO 229.0 K/uL Normal 10/20/2023 150 - 450 [facility] NEUTROPHILS NO. BLD AUTO 5.4 K/uL Normal 10/20/2023 1.8 - 7.8 [facility] BASOPHILS IN BLOOD BY AUTOMATED COUNT 0.1 K/uL Normal 10/20/2023 0 - 0.2 [facility] LYMPHOCYTES NO. BLD AUTO 1.7 K/uL Normal 10/20/2023 1 - 3.2 [facility] PMV BLD AUTO 10.5 fL Normal 10/20/2023 7.4 - 11.4 [facility] LYMPHOC[facility]TES NFR BLD AUTO 21.0 % Normal 10/20/2023 20 - 48 [facility] EOSINOPHIL NFR BLD AUTO 0.6 % Normal 10/20/2023 0 - 6 [facility] NUCLEATED RBC 0.0 % Normal 10/20/2023 0 - 1 [facility] MH RBC NO. BLD AUTO 4.89 M/uL Normal 10/20/2023 4.7 - 6 [facility] MCHC RBC AUTO MCNC 34.4 g/dL Normal 10/20/2023 32 - 36 [facility] BASOPHILS NFR BLD AUTO 0.9 % Normal 10/20/2023 0 - 2 [facility] MONOCYTES NO. BLD AUTO 0.7 K/uL Normal 10/20/2023 0 - 0.8 [facility] NEUTROPHILS NFR BLD AUTO 68.8 % Normal 10/20/2023 44 - 74 [facility] WBC NO. BLD AUTO 7.9 K/uL Normal 10/20/2023 4 - 10.5 CT [facility] EOSINOPHIL NO. BLD AUTO 0.1 K/uL Normal 10/20/2023 0 - 0.5 [facility] HCT VFR BLD AUTO 43.6 % Normal 10/20/2023 40 - 54 [facility] RDW RBC AUTO RTO 11.9 % Below low normal 10/20/2023 12.1 - 17.7 [facility] MCV RBC AUTO 89.2 fL Normal 10/20/2023 78 - 100 [facility] MCH RBC QN AUTO 30.7 pg Normal 10/20/2023 25 - 33 [facility] IMMATURE GRANULOCYTE, PERCENT 0.3 % Normal 10/20/2023 0 - 1 [facility] LDH SERPL L TO P CCNC 129.0 U/L Normal 10/20/2023 125 - 220 [facility] AST SERPL CCNC 22.0 U/L Normal 10/20/2023 5 - 40 [facility] ALT SERPL CCNC 24.0 U/L Normal 10/20/2023 7 - 52 [facility] ALP SERPL-CCNC 61.0 U/L Normal 10/20/2023 34 - 104 [facility] BNP BLD MCNC 23.0 pg/mL Normal 10/20/2023 0 - 100 [facility] MH LIPASE SERPL CCNC 93.0 U/L Above high normal 10/20/2023 11 - 82 [facility] CREAT SERPL MCNC 1.0 mg/dL Normal 10/20/2023 0.7 - 1.3 CT [facility] SODIUM SERPL SCNC 136.0 mmol/L Normal 10/20/2023 135 - 14 [facility] Glomerular filtration rate/1.73 sq M. predicted 98.0 Normal 10/20/2023 60 - [facility] BUN SERPL MCNC 12.0 mg/dL Normal 10/20/2023 9 - 20 [facility] CALCIUM SERPL MCNC 9.3 mg/dL Normal 10/20/2023 8.4 - 10.2 [facility] HCO3 SER SCNC 27.0 mmol/L Normal 10/20/2023 24 - 32 [facility] GLUCOSE SERPL MCNC 93.0 mg/dL Normal 10/20/2023 70 - 199 [facility] CHLORIDE SERPL SCNC 101.0 mmol/L Normal 10/20/2023 98 - 1 07 [facility] POTASSIUM SERPL SCNC 3.8 mmol/L Normal 10/20/2023 3.5 - 5.1 [facility] ANION GAP SERPL SCNC 8.0 mmol/L Normal 10/20/2023 5 - 14 [facility] History of Medication Use Medication Directions Dispensed Refills Start Date End Date Stat valsartan 320 mg tablet Take 1 tablet daily 11/10/2024 active Ativan 1 mg tablet 1 mg 3 times a day by oral route. 10/03/2024 4 completed acamprosate (CAMPRAL) 333 MG tablet Take 2 tablets (666 mg total) by mouth 2 (two) times a day. 07/29/2024 4 active Vivitrol 380 MG SUSR injection Inject 380 mg into the muscle every 30 (thirty) days. 07/29/2024 4 active Trintellix 10 mg tablet Take 1 tablet (10 mg total) by mouth 1 (one) time each day. 07/21/2024 active VivitroL 380 mg suspension,extended rel recon intramuscular suspension Inject 1 Syringe (380 mg total) into the shoulder, thigh, or buttocks. 07/21/2024 active propranoloL (INDERAL) 10 mg immediate release tablet TAKE 1 TABLET BY MOUTH TWICE A DAY NEEDED FOR ANXIETY 03/19/2024 active pantoprazole (PROTONIX) 40 mg EC tablet Take 1 tablet (40 mg total) by mouth 2 (two) times a day if needed. 02/13/2024 active diphenhydrAMINE (BENADRYL) 25 mg capsule Take 1 capsule (25 mg total) by mouth every 6 (six) hours as needed for itching for up to 15 doses. 02/11/2024 4 aborted LORazepam (ATIVAN) 1 MG tablet Take 1 tablet (1 mg total) by mouth every 6 (six) hours as needed for up to 5 doses. 02/11/2024 4 aborted LORazepam (ATIVAN) 2 MG/ML injection 1 mg 1 mg, Intravenous, Once, On Sat02/11/24 at 1215, For 1 dose 02/11/2024 4 completed sodium chloride 0.9% bolus (NS) 1,000 mL 1,000 mL, Intravenous, at 1,000 mL/hr, Once, On Sat02/11/24 at 1215, For 1 dose 02/11/2024 4 completed diphenhydrAMINE (BENADRYL) 25 mg capsule Take 1 capsule (25 mg total) by mouth every 6 (six) hours as needed for itching for up to 15 doses. 02/11/2024 active diphenhydrAMINE (BENADRYL) injection 50 mg 50 mg, Intravenous, Every 6 hours PRN, itching, Starting on Sat02/11/24 at 1210Administer undiluted. Maximum rate 25 mg/min. 02/11/2024 active acamprosate (CAMPRAL) 333 MG tablet 11/21/2023 active acamprosate (CAMPRAL) 333 MG tablet Take 3 tablets (999 mg total) by mouth 2 (two) times a day. 11/21/2023 active gabapentin (NEURONTIN) 300 MG capsule 11/21/2023 active valsartan (DIOVAN) tablet 320 mg TAKE 1 TABLET BY MOUTH EVERY DAY 07/22/2023 4 active lorazepam 0.5 mg tablet 09/21/2022 4 completed LORazepam (ATIVAN) 0.5 mg tablet May take a total of 2mg in a 24 hour period 09/21/2022 4 aborted valsartan (DIOVAN) 320 mg tablet Take 1 tablet (320 mg total) by mouth daily. 09/21/2022 active gabapentin 300 mg capsule 4 completed lorazepam 2 mg tablet 4 completed valsartan 320 mg tablet active acamprosate 333 mg tablet,delayed release TAKE 1 tablet twice a day active acamprosate (CAMPRAL) 333 mg delayed release tablet TAKE 1 TABLET BY MOUTH THREE TIMES A DAY FOR MAT active Allergies Allergen Reaction Severity Comment Documented Date Source Statu s AZITHROMYCIN RASH 11/17/2023 [facility] active ERYTHROMYCIN RASH 05/16/2016 [facility] active Problems Problem Status Onset Date Problem Type Date of Resolution Source Essential hypertension active 2021-08-07 Problem[address] [facility] Alcohol withdrawal (HCC) active EncounterDiagnosisAct [facility] H 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 ProblemAct [facility] Anxiety active 2021-08-07 ProblemAct [facility] Alcohol withdrawal syndrome without complication (CMS/HCC) active EncounterDiagnosisAct [facility] Alcohol abuse active 2021-08-07 ProblemAct [facility] Testicular lump active 2024-09-[address] [facility] Pain in left testicle active 2024-09-12 ProblemAct [facility] Pain in left testicle active EncounterDiagnosisAct [facility] Flu vaccine need active EncounterDiagnosisAct [facility] Tinnitus, bilateral active EncounterDiagnosisAc t CTTHSFRAN Immunizations Vaccine Date Source Lot Number Status Influenza Trivalent (Flucelv ax) 0.5mL (6mon &>) 09/21/2024 [facility] [id number] completed Influenza Quadravalent, MDCK , 0.5ml, preservative free (Flucelvax) 6mo and older 08/31/2022 [facility] [id number] completed Covid-19 (Moderna Booster 18+) 0.25mL dosage 11/05/2021 [facility] [id number] completed Transporeon SARS-CoV-2 COVID-19, mRNA, LNP-S, preservative free 01/23/2021 [facility] completed Transporeon SARS-CoV-2 COVID-19, mRNA, LNP-S, preservative free 12/26/2020 [facility] completed Influenza trivalent, with pr eservative (Fluzone; Afluria) 6mo and older 12/07/2015 [facility] [id number] completed Encounters Encounter Type Encounter Reason Primary Diagnosis Location Date Ambulatory [facility] 04/15/2025 Emergency Alcohol withdrawl Alcohol use, unspecified with withdrawal, uncomplicated [facility] 10/03/2024 Ambulatory Unspecified disorder of male genital organs Unspecified disorder of male genital organs [facility] 09/12/2024 Ambulatory Tinnitus, bilateral [place] [facility] [place] Emergency Alcohol use, unspecified with withdrawal, unspecified Alcohol use, unspecified with withdrawal, unspecified [facility] 02/11/2024 Emergency Chest pain, unspecified Chest pain, unspecified [facility] 10/19/2023 Care Team Organization Name Specialty Phone Email Start Date End Da te [facility] 04/15/2025 [employer] [employer] [facility] 03/26/2025 [employer] Care 12/27/20242024 [facility] 10/05/2024 [facility] 10/03/2024 [facility] 09/12/2024 [facility] Primary Care 07/16/2024 [facility] Primary Care 07/13/2024 06/08/2025 [facility] 12/15/2023 [facility] Primary Care 12/15/2023 [facility] 10/20/2023 06/08/2025 [facility] 10/20/2023 04/12/2025 [facility] Primary Care 09/2610/19/2023 [employer] [employer] 10/30/2022 03/17/2025 [facility]
--- OUTSIDE RECORDS SUMMARY | 2025-06-10 14:38 | XMS_ITS | Data Portability ---
Author Organization [place] - [facility], autoContract - [facility] Address [address] [place] [address] Assessment No assessment recorded. Plan of Treatment Reminders Order Date Submit Date Provider Last Modified By Organization Details Last Modified Time Details Appointments None recorded. Lab None recorded. Referral None recorded. Procedures None recorded. Surgeries None recorded. Imaging None recorded. Medication Orders valsartan 320 mg tablet [address]/[facility]armacy [facility][id number], [address] [place], [address], 4 17:19:44 propranolol 10 mg tablet [address]/Pharmacy [address][id number], [address] [place], [address], 4 17:19:44 Patient TargetsNo targets recorded. Patient [...] should try to get it through the [facility] - Informed pt that he [...] other questions or concerns at this time Not available 11/10/2024 15:33:43 Reason for Referral None Reported. Problems Name Problem SNOMED Code Status Onset Date Resolution Date Notes Provider Name and Address Organization Details Recorded Time Recurrent major depression in partial remission 04576554 Active 2015 Leanne House [facility] 4 14:53:53 Harmful pattern of use of alcohol 50872877 Active 2020 Leanne House [facility] 4 14:53:53 Anxiety 46591141 Active 2020 Leanne House [facility] 4 14:53:53 Essential hypertension 71860208 Active 2020 Leanne House [facility] 4 14:53:53 Alcohol dependence 59918259 Active 2024 Rylee Matamoros, SUAD, AGRICULTURAL TECHNICIAN [address] [facility], [place], [address] , [facility] 5 11:05:22 Problem Notes None recorded. Medical Equipment None Reported. Allergies Allergen ID Allergen Name Allergen Category Reaction Reaction Severity Criticality Documentation Date Start Date Code Code System Note Provider Name and Address Organization Details Recorded Time 2554 erythromy lorene medicatio n itching rash Not available Not available Not available 11/10/20242015 4053 RxNorm Leanne House [facility] 4 14:53:38 2555 azithromy lroene medicatio n Not available Not available Not available 11/10/2024 85759 RxNorm Reji Neff [facility] 4 15:09:35 Medications Name Sig Start Date [...] Not Avai lable valsartan 320 mg tablet Take 1 tablet daily 2024 active Not Available Not Available Not Avai lable gabapentin 300 mg capsule 11/10 completed Not [...] No t Available Vitals Date Recorded Body mass index (BMI) Body height Body temperature Heart rate Oxygen saturation Oxygen saturation in Arterial blood by Pulse oximetry Systolic And Diastolic Provider Name and Address Organization Details Last Updated DateTime 4 28.2 kg/m2 170.18 cm 98.3 [degF] 94 /min 98 % 98 % 132/84 mm[Hg] Reji Neff [facility] 4 15:11:27 Date Recorded Body weight Provider Name an d Address Organization Details Last Updated DateTime 11/10/2024 72039.91 g Leanne House [facility] 11/10/2024 14:53:34 Social History None recorded. Functional Status None recorded. Mental Status None recorded. Family History Relationship Description Onset Age of this Age Resolved Age Notes LastModified by Organization Details LastModified Time Maternal Grandmother Anxiety disorder Anxiet y disord er; Member s: Matern al Grandm other Not available 02/02/2025 04:01:51 Maternal Grandmother Harmful pattern of use of alcohol Alcoho l abuse; Member s: Matern al [...] Lung cancer, Stroke Sister: OCD Medical History Condition Response Depression Y Anxiety Y Hypertension Y Immunizations Vaccine Type Date Status Note Provider Nam e and Address Organization Details Recorded Time Influenza, MDCK, quadrivalent, PF 2 completed Leanne granados [facility] 11/10/2024 14:53:57 COVID-19, mRNA, LNP-S, PF, 30 mcg/0.3 mL dose 1 completed Leanne granados [facility] 11/10/2024 14:53:57 COVID-19, mRNA, LNP-S, PF, 30 mcg/0.3 mL dose 1 completed Leanne House null, [place] - [facility] 11/10/2024 14:53:57 Influenza, split virus, trivalent, preservative 6 completed Leanne House null, [place] [facility] 11/10/2024 14:53:57 COVID-19, mRNA, LNP-S, PF, 100 mcg/0.5mL dose or 50 mcg/0.25mL dose 1 completed Not Available [facility] 01/07/2025 10:33:59 Past Encounters Encounter ID Performer Location Encounter Start Date Encounter Closed Date Diagnosis/Indication Diagnosis SNOMED-CT Code Diagnosis ICD10 Code Diagnosis Note [id number] Rylee Matamoros DNP, AGRICULTURAL TECHNICIAN [id number] [address] [place] [address] 11/10/2024 14:44:45 11/10/2024 15:48:23 Essential hypertension 92377081 I10 Anxiety 54746683 F41.9 Health Concerns Section Related Observation LastModified by Organization Detai ls LastModified Time None Recorded Concern Status LastModified by Organization Details LastModified Time None Recorded Advance Directives Directive None Recorded Payers Insurance Date Sequence Insurance Name Policy Number Policy Isabel Covered Member ID Isabel Member ID Guarantor Name 12/02/2024 1 BC[employer]-ID ADDISON ESTRADA [id number] Pierce Powers [id number] Pierce Powers Notes Date Note Type [...] should try to get it through the [facility]. Pt would also like to know if he can be started back on propanolol to help with his anxiety. Pt would also like to discuss the results of his scrotum ultrasound.Pt states that the last time he drank was 3 weeks ago and he is now sober again and trying to eat a better diet. Rylee Matamoros DNP, AGRICULTURAL TECHNICIAN [address], [place], [address], [facility] - [facility] 12/01/2024 12:17:49
--- OUTSIDE RECORDS SUMMARY | 2025-06-10 14:38 | XMS_ITS | Clinical Summary ---
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 Name Role Phone Unavailable Primary Care Provider [...] Recurrent major depression i n partial remission ([facility] V24) 12/07/2015 Immunizations Immunization Administration Dates Next [...] 87 05/16/2016 11:44 AM MDT Temperature 36.9 C (98.4 F) 05/16/2016 11:44 AM MDT Respiratory Rate 20 05/16/2016 11:44 AM MDT Oxygen Saturation 97% 05/16/2016 11:44 AM MDT Inhaled Oxygen Concentration - - Weight 78.8 kg (173 lb 12 oz) 05/16/2016 11:44 A M MDT Height 170.2 cm (5' 7 ) 05/16/2016 11:44 AM MDT Body Mass Index 27.21 05/16/2016 11:44 AM MDT Plan of Treatment Not on file
--- OUTSIDE RECORDS SUMMARY | 2025-06-10 14:38 | XMS_ITS | Clinical Summary ---
Author Organization [facility] Address [address] [place] [address] Care Team Providers Care Mold Mechanic Name Role Phone Rylee Matamoros Hema CRUZ Primary Care Provider Allergies Active Allergy Reactions [...] often do you attend chur ch or faith services? Never 08/31/2022 Do you belong to any clubs o r organizations such as jewish groups, unions, fraternal or athletic groups, or [...] place to sleep or slept in a residential (including now)? No 08/31/2022 Sex and Gender [...] 91 09/21/2024 10:56 AM EDT Temperature 36.6 C (97.8 F) 09/21/2024 10:56 AM EDT Respiratory Rate 16 02/11/2024 2:05 [...] Preventative Health Evaluation 09/16/2024 09/16/2023, 08/31/2022, 08/19/2021 Influenza Vaccine (#1) 2025 , 08/31/2022, 12/07/2015 BMI Counseling 09/21/2025 09/21/2024, 08/26, 08/31/2022, Additional history exists Depression Screening 09/21/2025 09/21/2024, 09/21/2024, 09/16/2023, Additional history exists COVID-19 Vaccine Discontinued 11/05/2021, 11/2020, 12/26/2020 DTap / Tdap / Td Discontinued Hepatitis B Vaccines Discontinued Hepatitis C Screening Discontinued Pneumococcal Vaccine Discontinued RSV Ped < 20 months Aged Out No longe r eligible based on patient's age to complete this topic Care Teams Mold Mechanic Relationship Specialty Start Date End Date Rylee Matamoros APRN PCP - General Pediatrics 08/04/21
== END 2025-06-10 14:43 | disposition home or self-care (01) ==
PROVIDERS: PCP Nurse Practitioner
DX: F10.20 Alcohol dependence, uncomplicated (principal)

== ENCOUNTER → 2025-06-10 13:54 | Outpatient (BNVA) | payer OTHER, SELFPAY | PROVIDERS: PCP Nurse Practitioner | DX: F10.20 Alcohol dependence, uncomplicated (principal) | CPT/HCPCS: 96372; J2315 ==

== ENCOUNTER 2025-07-13 09:50 | Outpatient (AMB) | payer OTHER, SELFPAY ==
--- OUTSIDE RECORDS SUMMARY | 2024-09-08 07:33 | XMS_ITS | Encounter Summary ---
Author Organization [facility] Address [address] [place] [address] Care Team Providers Care Senior Care Specialist Name Role Phone Rylee Matamoros CLEANER LABORATORY EQUIPMENT Primary Care Provider [phone] Encounter Details Date Type Department Care Team (Late st Contact Info) Description 09/08/2024 7:33 AM EDT Hospital Encounter TH HISTORIC ENCOUNTERS EASTERN CONVERSION ONLY Rylee Matamoros, CLEANER LABORATORY EQUIPMENT [address] [place], [place] [phone] Social History Tobacco Use Types Packs/Day Years [...] on filedocumented in this encounter Care Teams Senior Care Specialist Relationship Specialty Start Date End Date Rylee Matamoros, SALVATORE [address] [place] [address] PCP - General Family Medicine 12/11/22 documented as of this encounter
--- NOTE | 2025-07-13 10:07 | AM.OFFVISNUR ---
Vital Signs 07/13/25 10:09 Height 5 ft 8 in Weight 83.461 kg BMI 28.0 BP 130/70 Pulse 86 Pulse Oximetry (%) 94 Intake Visit Reasons: Injection vivitrol buy and bill Allergies azithromycin Allergy (Verified 07/13/25 10:10) Hives Nursing Note Pierce presents today for his 4 week Vivitrol injection. Pierce is alert, oriented and presents with appropriate affect. He reports reduced alcohol usage when he has consumed, only a handful of times over the past month and less consumption during those times (4-6 whiskey) which he reports is a reduction from past consumption. Pierce is looking forward to his trip to [place] on Saturday. He reports better compliance with his medication and will look for a therapist once he returns from his trip. He was given a recovery resource in [place] and [place] will follow up with [facility] agile coach information- unable to utilize [facility]. Follow-up appointment in 4 weeks. Office Meds Vivitrol 380 mg intramuscular suspension,extended release Performing Provider: Angelica Peng MD Performing Location: [facility] Administered by: Samantha Easton RN on 07/13/25 10:39 Dose Route Admin Location Dispensed Lot Number Expiration Date [facility] Cassandra Architect 380 mg IM LG 380 mg [id number] 10/24/27 02223-282-09 [employer] Total Dispensed Waste 380 mg 0 % Comments: Pt is present for 4 week Vivitrol 380 mg injection. Pt denies any concern with previous injections and tolerated injection well. Educated on signs and symptoms of infection and encouraged to call [facility] with any related questions or concerns, pt verbalized understanding. Follow-up scheduled in 4 weeks for next injection. Assessment & Plan Assessment & Plan Orders: Orders AMB Naltrexone Injection - Practice Supplied Today F10.20 - Alcohol dependence, uncomplicated Coding
[2025-07-13 10:09] VITALS: BP 130/70; PULSE 86; O2SAT 94; BMI 28.0
--- OUTSIDE RECORDS SUMMARY | 2025-07-13 10:59 | XMS_ITS | Clinical Summary ---
Author Organization [facility] Address [address] [place] [address] Care Team Providers Care Limehouse Worker Name Role Phone Rylee Matamoros Hema CRUZ [...] often do you attend chur ch or uatsdin services? Never 08/31/2022 Do you belong to any clubs o r organizations such as advent groups, unions, fraternal or athletic groups, or [...] No 08/31/2022 Housing Stability Vital Sign Answer Ibll e Recorded In the last 12 months, [...] place to sleep or slept in a [place] facility (including now)? No 08/31/2022 Sex and Gender [...] age to complete this topic Care Teams Limehouse Worker Relationship Specialty Start Date End Date Rylee Matamoros APRN PCP - General Pediatrics 08/04/21
--- OUTSIDE RECORDS SUMMARY | 2025-07-13 10:59 | XMS_ITS | Clinical Summary ---
Author Organization [facility] Address [address] [place] [address] Care Team Providers Care Open Hearth Door Liner Name Role Phone Unavailable Primary Care Provider [...] Recurrent major depression i n partial remission ([facility] V24) 12/07/2015 Immunizations Immunization Administration Dates Next [...]
--- OUTSIDE RECORDS SUMMARY | 2025-07-13 10:59 | XMS_ITS | Clinical Summary ---
Author Organization [facility] Address [address] [place] [address] Care Team Providers Care Manager Of Information Name Role Phone Rylee Matamoros Primary Care Provider [phone] Allergies Active Allergy Reactions Criticality Noted Date [...] to complete this topic Insurance Care Teams Manager Of Information Relationship Specialty Start Date End Date Rylee Matamoros PCP - General Pediatrics 11/17/23
--- OUTSIDE RECORDS SUMMARY | 2025-07-13 10:59 | XMS_ITS | Clinical Summary ---
Author Organization [address] Address [address] [place] [address] Care Team Providers Care Splitter Machine Name Role Phone Unavailable Primary Care Provider [...] (NAIC) Type:Not on file Address: [address] [place] [id number]
== END 2025-07-13 10:52 | disposition home or self-care (01) ==
LOC: HO.HCC 09:50
PROVIDERS: PCP Nurse Practitioner; Visit Provider Internal Medicine
DX: F10.20 Alcohol dependence, uncomplicated (principal)

== ENCOUNTER → 2025-07-13 09:50 | Outpatient (BNVA) | payer OTHER, SELFPAY | PROVIDERS: PCP Nurse Practitioner; Visit Provider Internal Medicine | DX: F10.20 Alcohol dependence, uncomplicated (principal) | CPT/HCPCS: 96372; J2315 ==

== ENCOUNTER 2025-08-12 09:24 | Outpatient (AMB) | payer OTHER, SELFPAY ==
--- OUTSIDE RECORDS SUMMARY | 2024-09-08 07:33 | XMS_ITS | Encounter Summary ---
Author Organization [facility] Address [address] [place] [address] Care Team Providers Care Manager Corporate Marketing Name Role Phone Rylee Matamoros SLACK LINE YARDER Primary Care Provider [phone] Encounter Details Date Type Department Care Team (Late st Contact Info) Description 09/08/2024 7:33 AM EDT Hospital Encounter TH HISTORIC ENCOUNTERS EASTERN CONVERSION ONLY Rylee Matamoros, SLACK LINE YARDER [address] [place], [place] [phone] Social History Tobacco Use Types Packs/Day Years [...] on filedocumented in this encounter Care Teams Manager Corporate Marketing Relationship Specialty Start Date End Date Rylee Matamoros, SALVATORE [address] [place] [address] PCP - General Family Medicine 12/11/22 documented as of this encounter
--- OUTSIDE RECORDS SUMMARY | 2024-09-08 11:25 | XMS_ITS | Encounter Summary ---
Author Organization [facility] Address [address] [place] [address] Care Team Providers Care Fulfillment Associate Name Role Phone Rylee Matamoros SEALS ENGRAVER Primary Care Provider [phone] Encounter Details Date Type Department Care Team (Late st Contact Info) Description 09/08/2024 11:25 AM EDT Hospital Encounter TH HISTORIC ENCOUNTERS EASTERN CONVERSION ONLY Rylee Matamoros, SEALS ENGRAVER [address] [place], [place] [phone] Social History Tobacco Use Types Packs/Day Years [...] on filedocumented in this encounter Care Teams Fulfillment Associate Relationship Specialty Start Date End Date Rylee Matamoros NP [address] [place] [address] PCP - General Family Medicine 12/11/22 documented as of this encounter
--- OUTSIDE RECORDS SUMMARY | 2024-09-21 10:45 | XMS_ITS | Encounter Summary ---
Author Organization [facility] Address [address] [place] [address] Care Team Providers Care Photographer'S Model Name Role Phone Rylee Matamoros MULTI OPERATION MACHINE OPERATOR Primary Care Provider [phone] Encounter Details Date Type Department Care Team (Late st Contact Info) Description 09/21/2024 10:45 AM EDT Hospital Encounter TH HISTORIC ENCOUNTERS EASTERN CONVERSION ONLY Rylee Matamoros, MULTI OPERATION MACHINE OPERATOR [address] [place], [place] [phone] Social History Tobacco Use Types Packs/Day Years [...] he needs the injection rx sent to [facility] as they have it in stock. Pt states he has not f/u with the truck cleaner yet or the eye doctor but will be calling them to get set up with an appt as the referrals were previously placed; he will be reaching out to [facility] & Dr. Lozano at [facility]. Pt states he has been experiencing [...] CARE TEAM Patient Care Team: Rylee Matamoros, PERSONAL INSURANCE ADVISOR as PCP - General (Pediatrics) HISTORY OF [...] he needs the injection rx sent to [facility] as they have it in stock. Pt states he has not f/u with the truck cleaner yet or the eye doctor but will be calling them to get set up with an appt as the referrals were previously placed; he will be reaching out to [facility] & Dr. Lozano at [facility]. 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 No deformities. Nontender sinuses. [place] nasal mucosa without boggy turbinate. Smelling intact. [...] the vivtrol injections will be sent to [facility] 4. Pt received flu shot [...] Encounter Procedures ??? US Scrotum with Doppler [facility] PT [id number] 09/22/24 Standing Status: Future Standing Expiration Date: [...] 09/28/2024 1:30 PM ENF US 2 RA-EUS [facility] Rad En Rylee Matamoros APRN Family Nurse Practitioner [facility] 09/21/2024 documented in this encounter Plan of Treatment Not on file documented as of this encounter Visit Diagnoses Not on filedocumented in this encounter Care Teams Photographer'S Model Relationship Specialty Start Date End Date Rylee Matamoros NP [address] [place] [address] PCP - General Family Medicine 12/11/22 documented as of this encounter
--- NOTE | 2025-08-12 09:43 | AM.OFFVISNUR ---
Vital Signs 08/12/25 09:54 BP 120/80 Pulse 92 Pulse Oximetry (%) 96 Intake Visit Reasons: Injection Allergies azithromycin Allergy (Verified 08/12/25 09:55) Hives Nursing Note Pierce presents today for his 4 week Vivitrol injection. Pierce is alert, oriented and presents with appropriate affect. Office Meds Vivitrol 380 mg intramuscular suspension,extended release Performing Provider: Angelica Peng MD Performing Location: [facility] Administered by: Samantha Easton RN on 08/12/25 09:46 Dose Route Admin Location Dispensed Lot Number Expiration Date [facility] Informal Waiter/Waitress 380 mg IM RG 380 mg 2025-1014T 08/12/25 06706-797-42 [employer] Total Dispensed Waste 380 mg 0 % Comments: Pt is present for Vivitrol injection, pt denies complications with previous injections and tolerated injection well. Pt educated on signs and symptoms of infection at the injection site, urged to call [facility] with any questions or concerns. Follow up appointment made in 4 weeks for next injection. Assessment & Plan Assessment & Plan Orders: Orders AMB Naltrexone Injection - Practice Supplied Today F10.20 - Alcohol dependence, uncomplicated Coding
[2025-08-12 09:54] VITALS: BP 120/80; PULSE 92; O2SAT 96
--- OUTSIDE RECORDS SUMMARY | 2025-08-12 11:00 | XMS_ITS | Clinical Summary ---
Author Organization [facility] Address [address] [place] [address] Phone Care Team Providers Care Tennis Net Maker Name Role Phone Rylee Matamoros HOT ROLL INSPECTOR Primary Care Provider [phone] Allergies Active Allergy Reactions Criticality Noted Date [...] 80 10/03/2024 5:40 PM EST Temperature 37.2 C (99 F) 10/03/2024 4:20 PM EST Respiratory Rate 18 [...] Influencers of Health Screening 11/03/2022 Depression Screening 11/25/2024 08/31/2022 COVID-19 Vaccine ( season) 2025 11/05/2021, 01/23/2021, 12/26/2020 Influenza Vaccine (#1) 2025 , 08/31/2022, 09/08/2021, Additional history exists Hypertension/CHF/CAD Annual BMP Blood Test 10/03/2025 10/03/2024, 09/08/2024, 09/08/2024, Additional history exists Cholesterol Screening (Lipid Panel) 09/08/2029 09/08/2024, 09/08/2024, 09/09/2023, Additional history exists RSV Immunization Adult Patients (1 - 1-dose 75+ series) 2058 HIB Vaccines Aged Out No longer eligi [...] 5 Years) and At-Risk Patients (6 to 49 Years) Aged Out No longer eligible based [...] Metabolic Panel (CMP) (10/03/2024 4:44 PM EST) Pathologist [facility] Sodium 139 135 - 145 mmol/L LAB CHEMISTRY METHOD 10/03/2024 5:[address] [facility] Potassium 4.2 3.5 - 5.1 mmol/L LAB CHEMISTRY METHOD 10/03/2024 5:[address] [facility] Chloride 100 98 - 107 mmol/L LAB CHEMISTRY METHOD 10/03/2024 5:[address] [facility] CO2 29 24 - 32 mmol/L LAB CHEMISTRY METHOD 10/03/2024 5:[address] [facility] Anion Gap 10 5 - 14 LAB CHEMISTRY METHOD 10/03/2024 5:[address] [facility] Glucose 93 70 - 199 mg/dL LAB CHEMISTRY METHOD 10/03/2024 5:[address] [facility] BUN 15 9 - 20 mg/dL LAB CHEMISTRY METHOD 10/03/2024 5:[address] [facility] Creatinine 0.94 0.70 - 1.30 mg/dL LAB CHEMISTRY METHOD 10/03/2024 5:[address] [facility] eGFR 104 >=60 mL/min/1. 73m2 LAB CHEMISTRY METHOD 10/03/2024 5:[address] [facility] Comment:Calculation based on the Chronic Kidney Disease Epidemiology Collaboration (CKD-EPI) equation refit without adjustment for race. BUN/Creatinine Ratio 16.0 12.0 - 20.0 LAB CHEMISTRY METHOD 10/03/2024 5:[address] [facility] Calcium 9.2 8.4 - 10.2 mg/dL LAB CHEMISTRY METHOD 10/03/2024 5:[address] [facility] AST (SGOT) 23 5 - 40 unit/L LAB CHEMISTRY METHOD 10/03/2024 5:[address] [facility] ALT (SGPT) 24 7 - 52 unit/L LAB CHEMISTRY METHOD 10/03/2024 5:[address] [facility] Alkaline Phosphatase 70 34 - 104 unit/L LAB CHEMISTRY METHOD 10/03/2024 5:[address] [facility] Total Protein 7.0 6.4 - 8.5 g/dL LAB CHEMISTRY METHOD 10/03/2024 5:[address] [facility] Albumin 4.4 3.5 - 5.0 g/dL LAB CHEMISTRY METHOD 10/03/2024 5:[address] [facility] Total Bilirubin 0.9 0.3 - 1.0 mg/dL LAB CHEMISTRY METHOD 10/03/2024 5:[address] [facility] Blood Venous blood specimen / Unknown Venipuncture / Unknown 10/03/2024 4:44 PM EST 10/03/2024 4:48 PM EST Jesus Monterroso MD LAB BLOOD ORDERABLES Final Result [facility] [address] [place] [address], [place] [phone] * Depression Screening (08/31/2022) Depression Screening abstracted Historical Provider HEALTH MAINTENANCE Final Result from Last 3 Months or Most Recently Relevant to Health Maintenance Insurance [facility] Care Teams Tennis Net Maker Relationship Specialty Start Date End Date Rylee Matamoros NP [address] [place] [address] PCP - General Family Medicine 12/11/22
--- OUTSIDE RECORDS SUMMARY | 2025-08-12 11:00 | XMS_ITS | Clinical Summary ---
Author Organization [address] Address [address] [place] [address] Care Team Providers Care Tax Analyst Name Role Phone Unavailable Primary Care Provider [...] Lipid disorder screening 2023 Covid-19 vaccine series (2024- season) 2025 11/05/2021, 01/23/2021, 12/26/2020 Influenza vaccine 07/26/2025 09/21/2024, 08/31/2022, 12/07/2015 RSV Immunization (1 - 1-dose 75+ series) 2058 Meningococcal B Vaccine Aged Out No l onger eligible based on patient's age to complete this topic Meningococcal Vaccine Aged Out No ji navya eligible based on patient's age to complete this topic Pneumococcal Vaccine (2 - 49 years) Aged Out No longer eligible b ased on patient's age to complete this topic Insurance BS
--- OUTSIDE RECORDS SUMMARY | 2025-08-12 11:00 | XMS_ITS | Clinical Summary ---
Author Organization [facility] Address [address] [place] [address] Care Team Providers Care Sap Bpc Architect Name Role Phone Rylee Matamoros Primary Care Provider [phone] Allergies Active Allergy Reactions Criticality Noted Date [...] DTaP,Tdap,and Td Vaccines (1 - Tdap) 2005 Alcohol/Substance Use Screening 11/25/2024 Depression Screening and Follow-Up 11/25/2024 Social Drivers of Health Annual Screening 11/25/2024 COVID-19 Vaccine (4 - 2024-2 6 season) 2025 11/05/2021, 01/23/2021, 12/26/2020 Influenza Vaccine (#1) 2025 , 12/07/2015 RSV Vaccine (60+ years old and patients) (1 - 1-dose 75+ series) 2058 Pneumococcal Vaccine: Pediatric (0-5 Years) and At-Risk Patients (6-50 Years) Aged Out No longer eligible based on patient's age to complete this topic Insurance Care Teams Sap Bpc Architect Relationship Specialty Start Date End Date Rylee Matamoros PCP - General Pediatrics 11/17/23
--- OUTSIDE RECORDS SUMMARY | 2025-08-12 11:00 | XMS_ITS | Clinical Summary ---
Author Organization [facility] Address [address] [place] [address] Care Team Providers Care Web Development Director Name Role Phone Unavailable Primary Care Provider [...] Recurrent major depression i n partial remission ([facility] V24) 12/07/2015 Immunizations Immunization Administration Dates [...]
--- OUTSIDE RECORDS SUMMARY | 2025-08-12 11:00 | XMS_ITS | Clinical Summary ---
Author Organization [facility] Address [address] [place] [address] Care Team Providers Care Heating Technician Name Role Phone Rylee Matamoros Hema CRUZ [...] often do you attend chur ch or religion services? Never 08/31/2022 Do you belong to any clubs o r organizations such as bahai groups, unions, fraternal or athletic groups, or [...] place to sleep or slept in a group home (including now)? No 08/31/2022 Sex and [...] age to complete this topic Care Teams Heating Technician Relationship Specialty Start Date End Date Rylee Matamoros APRN PCP - General Pediatrics 08/04/21
== END 2025-08-12 10:11 | disposition home or self-care (01) ==
LOC: HO.HCC 09:24
PROVIDERS: PCP Nurse Practitioner
DX: F10.20 Alcohol dependence, uncomplicated (principal)

== ENCOUNTER → 2025-08-12 09:24 | Outpatient (BNVA) | payer OTHER, SELFPAY | PROVIDERS: PCP Nurse Practitioner | DX: F10.20 Alcohol dependence, uncomplicated (principal); Z79.899 Other long term (current) drug therapy | CPT/HCPCS: 96372; J2315 ==

== ENCOUNTER 2025-09-08 09:18 | Outpatient (AMB) | payer OTHER, SELFPAY ==
--- OUTSIDE RECORDS SUMMARY | 2024-09-08 07:33 | XMS_ITS | Encounter Summary ---
Author Organization [facility] Address [address] [place] [address] Care Team Providers Care Filter Machine Operator Name Role Phone Rylee Matamoros GRAB HOOKER Primary Care Provider [phone] Encounter Details Date Type Department Care Team (Late st Contact Info) Description 09/08/2024 7:33 AM EDT Hospital Encounter TH HISTORIC ENCOUNTERS EASTERN CONVERSION ONLY Rylee Matamoros, GRAB HOOKER [address] [place], [place] [phone] Social History Tobacco Use Types Packs/Day Years [...] 10/03/2024 4:25 PM Medina Sims RN * [place] Suicide Severity Rating Scale (Screener/Recent Self-Report) Question [...] on filedocumented in this encounter Care Teams Filter Machine Operator Relationship Specialty Start Date End Date Rylee Matamoros NP [address] [place] [address] PCP - General Family Medicine 12/11/22 documented as of this encounter
--- OUTSIDE RECORDS SUMMARY | 2024-09-08 11:25 | XMS_ITS | Encounter Summary ---
Author Organization [facility] Address [address] [place] [address] Care Team Providers Care French Translator Name Role Phone Rylee Matamoros PATTERNMAKER PRESSURE CAST Primary Care Provider [phone] Encounter Details Date Type Department Care Team (Late st Contact Info) Description 09/08/2024 11:25 AM EDT Hospital Encounter TH HISTORIC ENCOUNTERS EASTERN CONVERSION ONLY Rylee Matamoros, PATTERNMAKER PRESSURE CAST [address] [place], [place] [phone] Social History Tobacco Use Types Packs/Day Years [...] 10/03/2024 4:25 PM Medina Sims RN * [place] Suicide Severity Rating Scale (Screener/Recent Self-Report) Question [...] on filedocumented in this encounter Care Teams French Translator Relationship Specialty Start Date End Date Rylee Matamoros NP [address] [place] [address] PCP - General Family Medicine 12/11/22 documented as of this encounter
--- OUTSIDE RECORDS SUMMARY | 2024-09-21 10:45 | XMS_ITS | Encounter Summary ---
Author Organization [facility] Address [address] [place] [address] Care Team Providers Care Cuff Cutter Name Role Phone Rylee Matamoros QUALITY ASSURANCE DIRECTOR Primary Care Provider [phone] Encounter Details Date Type Department Care Team (Late st Contact Info) Description 09/21/2024 10:45 AM EDT Hospital Encounter TH HISTORIC ENCOUNTERS EASTERN CONVERSION ONLY Rylee Matamoros, QUALITY ASSURANCE DIRECTOR [address] [place], [place] [id number] Social History Tobacco Use Types Packs/Day Years [...] 10/03/2024 4:25 PM Medina Sims RN * [place] Suicide Severity Rating Scale (Screener/Recent Self-Report) Question [...] he needs the injection rx sent to [facility] as they have it in stock. Pt states he has not f/u with the director auto yet or the eye doctor but will be calling them to get set up with an appt as the referrals were previously placed; he will be reaching out to [facility] & Dr. Lozano at [facility]. Pt states he has been experiencing [...] he needs the injection rx sent to [facility] as they have it in stock. Pt states he has not f/u with the director auto yet or the eye doctor but will be calling them to get set up with an appt as the referrals were previously placed; he will be reaching out to [facility] & Dr. Lozano at [facility]. 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 No deformities. Nontender sinuses. [place] nasal mucosa without boggy turbinate. Smelling intact. [...] the vivtrol injections will be sent to [facility]. Pt received flu shot in [...] Encounter Procedures ??? US Scrotum with Doppler [facility] PT [id number] 09/22/24 Standing Status: Future Standing Expiration Date: [...] 09/28/2024 1:30 PM RA ENF 2 RA-EUS [facility] Rad Enf Rylee Matamoros APRN Family Nurse Practitioner [facility] 09/21/2024 documented in this encounter Plan of Treatment Not on file documented as of this encounter Visit Diagnoses Not on filedocumented in this encounter Care Teams Cuff Cutter Relationship Specialty Start Date End Date Rylee Matamoros NP [address] [place] [address] PCP - General Family Medicine 12/11/22 documented as of this encounter
--- NOTE | 2025-09-08 07:53 | AM.OFFVISNUR ---
Vital Signs 09/08/25 09:41 BP 126/88 Pulse 110 H Pulse Oximetry (%) 99 Intake Visit Reasons: Injection Allergies azithromycin Allergy (Verified 09/08/25 09:42) Hives Nursing Note Pierce presents today for his 4 week Vivitrol injection. Pierce is alert, oriented and presents with appropriate affect. Pierce reports no major changes, drinking a couple of times in a controlled manner. Abel looked into therapy options online, agreed to have referrral put in through [facility], will submit to central intake. Follow up in 4 weeks for the next injection. Office Meds Vivitrol 380 mg intramuscular suspension,extended release Performing Provider: Angelica Peng MD Performing Location: [facility] Administered by: Samantha Easton RN on 09/08/25 09:59 Dose Route Admin Location Dispensed Lot Number Expiration Date [facility] Senior Investigator 380 mg IM LG 380 mg [id number] 11/24/27 05556-130-19 [employer] Total Dispensed Waste 380 mg 0 % Comments: Pt is present for Vivitrol injection, pt denies complications with previous injections and tolerated injection well. Pt educated on signs and symptoms of infection at the injection site, urged to call [facility] with any questions or concerns. Follow up appointment made in 4 weeks for next injection. Assessment & Plan Assessment & Plan Orders: Orders AMB Naltrexone Injection - Practice Supplied Today F10.20 - Alcohol dependence, uncomplicated Coding
[2025-09-08 09:41] VITALS: BP 126/88; PULSE 110; O2SAT 99
--- OUTSIDE RECORDS SUMMARY | 2025-09-08 10:23 | XMS_ITS | Clinical Summary ---
Author Organization [facility] Address [address] [place] [address] Care Team Providers Care Medical Surgery Nurse Name Role Phone Rylee Matamoros Primary Care [...] to complete this topic Insurance Care Teams Medical Surgery Nurse Relationship Specialty Start Date End Date Rylee Matamoros PCP - General Pediatrics 11/17/23
--- OUTSIDE RECORDS SUMMARY | 2025-09-08 10:23 | XMS_ITS | Clinical Summary ---
Author Organization [facility] Address [address] [place] [address] Phone Care Team Providers Care Car Wiper Name Role Phone Rylee Matamoros BEDSPREAD CUTTER HAND Primary Care Provider [phone] Allergies Active Allergy Reactions Criticality Noted Date [...] n partial remission (CMS/HCC V24) 12/07/2015 Immunizations Immunization Administration Dates Next Due Influenza Quadravalent, MDCK [...] of 3 - 19+ 3-dose series) 2002 HPV Vaccines (1 - 3-dose SCDM series) 2010 HIV Screening 11/03/2022 Hepatitis C Screening 11/03/2022 [...] mmol/L LAB CHEMISTRY METHOD 10/03/2024 5:09 PM [facility] Potassium 4.2 3.5 - 5.1 mmol/L LAB CHEMISTRY METHOD 10/03/2024 5:09 PM [facility] Chloride 100 98 - 107 mmol/L LAB CHEMISTRY METHOD 10/03/2024 5:09 PM [facility] CO2 29 24 - 32 mmol/L LAB CHEMISTRY METHOD 10/03/2024 5:09 PM [facility] Anion Gap 10 5 - 14 LAB CHEMISTRY METHOD 10/03/2024 5:09 PM [facility] Glucose 93 70 - 199 mg/dL LAB CHEMISTRY METHOD 10/03/2024 5:09 PM [facility] BUN 15 9 - 20 mg/dL LAB CHEMISTRY METHOD 10/03/2024 5:09 PM [facility] Creatinine 0.94 0.70 - 1.30 mg/dL LAB CHEMISTRY METHOD 10/03/2024 5:09 PM [facility] eGFR 104 >=60 mL/min/1. 73m2 LAB CHEMISTRY METHOD 10/03/2024 5:09 PM [facility] Comment:Calculation based on the Chronic Kidney Disease Epidemiology Collaboration (CKD-EPI) equation refit without adjustment for race. BUN/Creatinine Ratio 16.0 12.0 - 20.0 LAB CHEMISTRY METHOD 10/03/2024 5:09 PM [facility] Calcium 9.2 8.4 - 10.2 mg/dL LAB CHEMISTRY METHOD 10/03/2024 5:09 PM [facility] AST (SGOT) 23 5 - 40 unit/L LAB CHEMISTRY METHOD 10/03/2024 5:09 PM [facility] ALT (SGPT) 24 7 - 52 unit/L LAB CHEMISTRY METHOD 10/03/2024 5:09 PM [facility] Alkaline Phosphatase 70 34 - 104 unit/L LAB CHEMISTRY METHOD 10/03/2024 5:09 PM [facility] Total Protein 7.0 6.4 - 8.5 g/dL LAB CHEMISTRY METHOD 10/03/2024 5:09 PM [facility] Albumin 4.4 3.5 - 5.0 g/dL LAB CHEMISTRY METHOD 10/03/2024 5:09 PM [facility] Total Bilirubin 0.9 0.3 - 1.0 mg/dL LAB CHEMISTRY METHOD 10/03/2024 5:09 PM [facility] Blood Venous blood specimen / Unknown Venipuncture / Unknown 10/03/2024 4:44 PM EST 10/03/2024 4:48 PM EST Jesus Monterroso MD LAB BLOOD ORDERABLES Final Result [facility] [address] [place] [address], [place] [phone] * Depression Screening (08/31/2022) Depression Screening abstracted Historical Provider HEALTH MAINTENANCE Final Result from Last 3 Months or Most Recently Relevant to Health Maintenance Insurance [facility] Care Teams Car Wiper Relationship Specialty Start Date End Date Rylee Matamoros NP [address] [place] [address] PCP - General Family Medicine 12/11/22
--- OUTSIDE RECORDS SUMMARY | 2025-09-08 10:23 | XMS_ITS | Clinical Summary ---
Author Organization [facility] Address [address] [place] [address] Care Team Providers Care Is Support Analyst Name Role Phone Unavailable Primary Care [...] Date Recurrent major depression in partial remission 12/07/2015 Immunizations Immunization Administration Dates Next Due [...]
--- OUTSIDE RECORDS SUMMARY | 2025-09-08 10:23 | XMS_ITS | Clinical Summary ---
Author Organization [facility] Address [address] [place] [address] Care Team Providers Care Director Of Integrated Marketing Name Role Phone Rylee Matamoros Hema CRUZ Primary Care Provider [phone] Allergies Active Allergy Reactions Criticality Noted Date [...] often do you attend chur ch or confucianism services? Never 08/31/2022 Do you belong to any clubs o r organizations such as gnosticist groups, unions, fraternal or athletic groups, or [...] place to sleep or slept in a jail (including now)? No 08/31/2022 Sex and Gender [...] age to complete this topic Care Teams Director Of Integrated Marketing Relationship Specialty Start Date End Date Rylee Matamoros APRN PCP - General Pediatrics 08/04/21
--- OUTSIDE RECORDS SUMMARY | 2025-09-08 10:23 | XMS_ITS | Data Portability ---
Author Organization [place] [facility] Address [address] [place] [address] Assessment No assessment recorded. Plan of Treatment Reminders Order Date Submit Date Provider Last Modified By Organization Details Last Modified Time Details Appointments None recorded. Lab None recorded. Referral None recorded. Procedures None recorded. Surgeries None recorded. Imaging None recorded. Medication Orders valsartan 320 mg tablet [id number], [address] [place], [address], 4 17:19:44 propranolol 10 mg tablet [id number], [address] [place], [address], 4 17:19:44 Patient TargetsNo targets recorded. Patient [...] should try to get it through the [place] - Informed pt that he [...] Time Recurrent major depression in partial remission 95620579 Active 2015 Leanne House [facility] 4 14:53:53 Harmful pattern of use of alcohol 16432424 Active 2020 Leanne House [facility] 4 14:53:53 Anxiety 42501814 Active 2020 Leanne House [facility] 4 14:53:53 Essential hypertension 04443242 Active 2020 Leanne House [facility] 4 14:53:53 Alcohol dependence 13949422 Active 2024 Rylee Matamoros, DNP, REGISTERED CLINICAL DIETITIAN [address] [place], [address] , [facility] 5 11:05:22 Problem Notes None recorded. Medical Equipment None Reported. Allergies Allergen ID Allergen Name Allergen Category Reaction Reaction Severity Criticality Documentation Date Start Date Code Code System Note Provider Name and Address Organization Details Recorded Time 2554 erythromy lorene medicatio n itching rash Not available Not available Not available 11/10/20242015 4053 RxNorm Leanne House [facility] 4 14:53:38 2555 azithromy lorene medicatio n Not available Not available Not available 11/10/2024 65080 RxNorm Jeancarlospennymichelle Neff [facility] 4 15:09:35 Medications Name Sig Start Date [...] % 98 % 132/84 mm[Hg] Reji Neff [facility] 4 15:11:27 Date Recorded Body weight Provider Name an d Address Organization Details Last Updated DateTime 11/10/2024 71933.91 g Leanne Harsh [facility] 11/10/2024 14:53:34 Social History None recorded. [...] Stroke Sister: OCD Medical History Condition Response Hypertension Y Anxiety Y Depression Y Immunizations Vaccine Type Date Status Note Provider Nam e and Address Organization Details Recorded Time Influenza, MDCK, quadrivalent, PF 2 completed Leanne granados [facility] 11/10/2024 14:53:57 COVID-19, mRNA, LNP-S, PF, 30 mcg/0.3 mL dose 1 completed Leanne granados [facility] 11/10/2024 14:53:57 COVID-19, mRNA, LNP-S, PF, 30 mcg/0.3 mL dose 1 completed Leanne House null, [place] [facility] 11/10/2024 14:53:57 Influenza, split virus, trivalent, preservative 6 completed Leanne House null, [place] [facility] 11/10/2024 14:53:57 COVID-19, mRNA, LNP-S, PF, 100 mcg/0.5mL dose or 50 mcg/0.25mL dose 1 completed Not Available [facility] 01/07/2025 10:33:59 Past Encounters Encounter ID Performer Location Encounter Start Date Encounter Closed Date Diagnosis/Indication Diagnosis SNOMED-CT Code Diagnosis ICD10 Code Diagnosis IMO Codes Diagnosis Note [id number] Rylee Matamoros, DNP, REGISTERED CLINICAL DIETITIAN [id number] [address] [place] [address] 11/10/2024 14:44:45 11/10/2024 15:48:23 Essential hypertension 78967228 I10 Anxiety 53528518 F41.9 Health Concerns Section Related Observation LastModified by Organization Detai ls LastModified Time None Recorded Concern Status LastModified by Organization Details LastModified Time None Recorded Advance Directives Directive None Recorded Payers Insurance Date Sequence Insurance Name Policy Number Policy Isabel Covered Member ID Isabel Member ID Guarantor Name 12/02/2024 1 BC[employer]-ID ADDISON [id number] Pierce Powers [id number] Pierce Powers Notes Date Note Type Note Provider Name and Address Organization Details Recorded Time 11/10/2024 text/html ROS as noted in the HPI Pt is here for bp check, he is prescribed valsartan 320mg daily. Pt's bp was 134/86 on 09/21, and is 132/84 today. Pt also states that he has been having issues trying to get his vivitrol injection and was wondering if he should try to get it through the [facility]. Pt would also like to know if he can be started back on propanolol to help with his anxiety. Pt would also like to discuss the results of his scrotum ultrasound.Pt states that the last time he drank was 3 weeks ago and he is now sober again and trying to eat a better diet. Rylee Matamoros DNP, REGISTERED CLINICAL DIETITIAN [address] [place], [address], [facility] - [facility] 12/01/2024 12:17:49
--- OUTSIDE RECORDS SUMMARY | 2025-09-08 10:23 | XMS_ITS | Clinical Summary ---
Author Organization [address] Address [address] [place] [address] Care Team Providers Care Supervisor Maintenance And Custodians Name Role Phone Unavailable Primary Care Provider [...] 10,TDAP once) 2003 Lipid disorder screening 2023 Influenza vaccine 06/25/2025 09/21/2024, 08/31/2022, 12/07/2015 Covid-19 vaccine series ( season) 2025 11/05/2021, 01/23/2021, 12/26/2020 RSV Immunization (1 - 1-dose 75+ series) [...]
== END 2025-09-08 10:03 | disposition home or self-care (01) ==
LOC: HO.HCC 09:18
PROVIDERS: PCP Nurse Practitioner
DX: F10.20 Alcohol dependence, uncomplicated (principal)

== ENCOUNTER → 2025-09-08 09:18 | Outpatient (BNVA) | payer OTHER, SELFPAY | PROVIDERS: PCP Nurse Practitioner | DX: F10.20 Alcohol dependence, uncomplicated (principal) | CPT/HCPCS: 96372; J2315 ==

== ENCOUNTER 2025-10-18 10:54 | Outpatient (AMB) | payer OTHER, SELFPAY ==
--- OUTSIDE RECORDS SUMMARY | 2024-09-08 06:33 | XMS_ITS | Encounter Summary ---
Author Organization [facility] Address [address] [place] [address] Care Team Providers Care Flag Maker Name Role Phone Rylee Matamoros AIR CONDITIONING INSULATION INSTALLER Primary Care Provider [phone] Encounter Details Date Type Department Care Team (Late st Contact Info) Description 09/08/2024 7:33 AM EDT Hospital Encounter TH HISTORIC ENCOUNTERS EASTERN CONVERSION ONLY Rylee Matamoros, AIR CONDITIONING INSULATION INSTALLER [address] [place], [place] [id number] Social History Tobacco Use Types Packs/Day Years [...] 9:13 AM EDT documented in this encounter Functional Status * Calculated C-SSRS Risk Score (Lifetime/Recent) Answer Date of Assessment Author No Risk Indicated 10/03/2024 4:25 PM Medina Sims RN * [place] Suicide Severity Rating Scale (Screener/Recent Self-Report) Question Answer Date of Assessment Author 1. Wish to be (Past 1 Month) No 024 4:25 PM Medina Sims RN 2. Non-Specific Active Suici sea Thoughts (Past 1 Month) No 10/03/2024 4:25 PM Erinn Sims RN 6. Suicidal Behavior (Lifetime) No 4 4:25 PM Medina Sims RN documented as of this encounter Progress Notes * Historical, Notes [...] on filedocumented in this encounter Care Teams Flag Maker Relationship Specialty Start Date End Date Rylee Matamoros NP [address] [place] [address] PCP - General Family Medicine 12/11/22 documented as of this encounter
--- OUTSIDE RECORDS SUMMARY | 2024-09-08 10:25 | XMS_ITS | Encounter Summary ---
Author Organization [facility] Address [address] [place] [address] Care Team Providers Care Consulting Application Engineer Name Role Phone Rylee Matamoros BRIDGE LEVERMAN Primary Care Provider [phone] Encounter Details Date Type Department Care Team (Late st Contact Info) Description 09/08/2024 11:25 AM EDT Hospital Encounter TH HISTORIC ENCOUNTERS EASTERN CONVERSION ONLY Rylee Matamoros, BRIDGE LEVERMAN [address] [place], [place] [phone] Social History Tobacco Use Types Packs/Day Years [...] 10/03/2024 4:25 PM Medina Sims RN * [place] Suicide Severity Rating Scale (Screener/Recent Self-Report) Question Answer Date of Assessment Author 1. Wish to be (Past 1 Month) No 024 4:25 PM Medina Sims RN 2. Non-Specific Active Suici sea Thoughts (Past 1 Month) No 10/03/2024 4:25 PM Erinn Sims RN 6. Suicidal Behavior (Lifetime) No 4:25 PM Medina Sims RN documented as of this encounter Plan of Treatment Not on file documented as of this encounter Visit Diagnoses Not on filedocumented in this encounter Care Teams Consulting Application Engineer Relationship Specialty Start Date End Date Rylee Matamoros NP [address] [place] [address] PCP - General Family Medicine 12/11/22 documented as of this encounter
--- OUTSIDE RECORDS SUMMARY | 2024-09-21 09:45 | XMS_ITS | Encounter Summary ---
Author Organization [facility] Address [address] [place] [address] Care Team Providers Care Lumber Press Operator Name Role Phone Rylee Matamoros UNDERWRITING SPECIALIST Primary Care Provider [phone] Encounter Details Date Type Department Care Team (Late st Contact Info) Description 09/21/2024 10:45 AM EDT Hospital Encounter TH HISTORIC ENCOUNTERS EASTERN CONVERSION ONLY Rylee Matamoros, UNDERWRITING SPECIALIST [address] [place], [place] [id number] Social History Tobacco Use Types Packs/Day Years [...] 10:56 AM EDT documented in this encounter Functional Status * Calculated C-SSRS Risk Score (Lifetime/Recent) Answer Date of Assessment Author No Risk Indicated 10/03/2024 4:25 PM Medina Sims RN * [place] Suicide Severity Rating Scale (Screener/Recent Self-Report) Question [...] he needs the injection rx sent to [facility] as they have it in stock. Pt states he has not f/u with the oysterman yet or the eye doctor but will be calling them to get set up with an appt as the referrals were previously placed; he will be reaching out to [facility] & Dr. Lozano at [facility]. Pt states he has been experiencing pain [...] CARE TEAM Patient Care Team: Rylee Matamoros, NANCY as PCP - General (Pediatrics) HISTORY OF [...] he needs the injection rx sent to [facility] as they have it in stock. Pt states he has not f/u with the oysterman yet or the eye doctor but will be calling them to get set up with an appt as the referrals were previously placed; he will be reaching out to [facility] & Dr. Lozano at [facility]. 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 No deformities. Nontender sinuses. [place] nasal mucosa without boggy turbinate. Smelling intact. [...] the vivtrol injections will be sent to [facility]. Pt received flu shot [...] Encounter Procedures ??? US Scrotum with Doppler [facility] PT [id number] 09/22/24 Standing Status: Future Standing Expiration Date: [...] Time Provider Department Center 09/28/2024 1:30 PM RA ENF 2 RA-EUS [facility] Rad Enf Rylee Matamoros APRN Family Nurse Practitioner [facility] 09/21/2024 documented in this encounter Plan of Treatment Not on file documented as of this encounter Visit Diagnoses Not on filedocumented in this encounter Care Teams Lumber Press Operator Relationship Specialty Start Date End Date Rylee Matamoros NP [address] [place] [address] PCP - General Family Medicine 12/11/22 documented as of this encounter
--- NOTE | 2025-10-12 08:08 | AM.OFFVISNUR ---
Intake Visit Reasons: Injection Allergies azithromycin Allergy (Verified 09/08/25 09:42) Hives Coding
--- NOTE | 2025-10-12 08:10 | AM.OFFVISNUR ---
Intake Visit Reasons: Injection Allergies azithromycin Allergy (Verified 09/08/25 09:42) Hives Assessment & Plan Assessment & Plan Orders: Orders AMB Naltrexone Injection - Practice Supplied Today F10.20 - Alcohol dependence, uncomplicated Medications: New Vivitrol ER (naltrexone microspheres) 380 mg IM ONCE 1 ea 0RF NS F10.20 - Alcohol dependence, uncomplicated Coding
--- NOTE | 2025-10-18 09:22 | AM.OFFVISNUR ---
Vital Signs 10/18/25 11:12 BP 142/70 H Pulse 98 Pulse Oximetry (%) 99 Intake Visit Reasons: Injection Allergies azithromycin Allergy (Verified 10/18/25 11:13) Hives Nursing Note Pierce presents today for his 4 week Vivitrol injection. Pierce is alert, oriented and presents with appropriate affect. Pierce reports no major changes, just back from [place] visiting family. CC reached out and they can not see him because he is a [place] resident. Follow-up in four weeks for the next injection. Office Meds Vivitrol 380 mg intramuscular suspension,extended release Performing Provider: Angelica Peng MD Performing Location: [facility] Administered by: Samantha Easton RN on 10/18/25 11:37 Dose Route Admin Location Dispensed Lot Number Expiration Date [place] Professor Of Geology 380 mg IM RG 380 mg [id number] [employer] Total Dispensed Waste 380 mg 0 % Comments: Pt is present for Vivitrol injection, pt denies complications with previous injections and tolerated injection well. Pt educated on signs and symptoms of infection at the injection site, urged to call [facility] with any questions or concerns, pt verbalized understanding. Follow up appointment made in 4 weeks for next injection. Assessment & Plan Assessment & Plan Orders: Orders AMB Naltrexone Injection - Practice Supplied 10/12/25 F10.20 - Alcohol dependence, uncomplicated AMB Naltrexone Injection - Practice Supplied Today F10.20 - Alcohol dependence, uncomplicated Medications: New Vivitrol ER (naltrexone microspheres) 380 mg IM ONCE 1 ea 0RF NS F10.20 - Alcohol dependence, uncomplicated Coding
[2025-10-18 11:12] VITALS: BP 142/70; PULSE 98; O2SAT 99
--- OUTSIDE RECORDS SUMMARY | 2025-10-18 13:52 | XMS_ITS | Clinical Summary ---
Author Organization [address] Address [address] [place] [address] Care Team Providers Care Budget Clerk Name Role Phone Unavailable Primary Care Provider [...]
--- OUTSIDE RECORDS SUMMARY | 2025-10-18 13:52 | XMS_ITS | Clinical Summary ---
Author Organization [facility] Address [address] [place] [address] Care Team Providers Care Petroleum Engineering Teacher Name Role Phone Rylee Matamoros Primary Care Provider [phone] Allergies Active Allergy Reactions Criticality Noted Date [...] 11/25/2024 Influenza Vaccine (#1) 2025 2, 12/07/2015 COVID-19 Vaccine (4 - 2024-2 6 season) 2025 11/05/2021, 01/23/2021, 12/26/2020 Pneumococcal Vaccine: Pediatric (0-5 Years) and At-Risk Patients (6-50 Years) Aged Out No longer eligible based on patient's age to complete this topic Insurance Care Teams Petroleum Engineering Teacher Relationship Specialty Start Date End Date Rylee Matamoros PCP - General Pediatrics 11/17/23
--- OUTSIDE RECORDS SUMMARY | 2025-10-18 13:52 | XMS_ITS | Clinical Summary ---
Author Organization [facility] Address [address] [place] [address] Care Team Providers Care Clean Rice Broker Name Role Phone Rylee Matamoros Hema CRUZ Primary Care Provider [phone] Allergies Active Allergy Reactions Criticality Noted Date [...] often do you attend chur ch or congregational services? Never 08/31/2022 Do you belong to any clubs o r organizations such as confucianist groups, unions, fraternal or athletic groups, or [...] age to complete this topic Care Teams Clean Rice Broker Relationship Specialty Start Date End Date Rylee Matamoros APRN PCP - General Pediatrics 08/04/21
--- OUTSIDE RECORDS SUMMARY | 2025-10-18 13:52 | XMS_ITS | Clinical Summary ---
Author Organization [facility] Address [address] [place] [address] Phone Care Team Providers Care Supervisor Chassis Assembly Name Role Phone Rylee Matamoros STONER OUT Primary Care Provider [phone] Allergies Active Allergy Reactions Criticality Noted Date [...] mmol/L LAB CHEMISTRY METHOD 10/03/2024 5:09 PM [facility] Potassium 4.2 3.5 - 5.1 mmol/L LAB CHEMISTRY METHOD 10/03/2024 5:09 PM [facility] Chloride 100 98 - 107 mmol/L LAB CHEMISTRY METHOD 10/03/2024 5:09 PM [facility] CO2 29 24 - 32 mmol/L LAB CHEMISTRY METHOD 10/03/2024 5:09 PM [facility] Anion Gap 10 5 - 14 LAB CHEMISTRY METHOD 10/03/2024 5:09 PM [facility] Glucose 93 70 - 199 mg/dL LAB CHEMISTRY METHOD 10/03/2024 5:09 PM [facility] BUN 15 9 - 20 mg/dL LAB CHEMISTRY METHOD 10/03/2024 5:09 PM [facility] Creatinine 0.94 0.70 - 1.30 mg/dL LAB CHEMISTRY METHOD 10/03/2024 5:09 PM [facility] eGFR 104 >=60 mL/min/1. 73m2 LAB CHEMISTRY METHOD 10/03/2024 5:09 PM [facility] Comment:Calculation based on the Chronic Kidney Disease Epidemiology Collaboration (CKD-EPI) equation refit without adjustment for race. BUN/Creatinine Ratio 16.0 12.0 - 20.0 LAB CHEMISTRY METHOD 10/03/2024 5:09 PM [facility] Calcium 9.2 8.4 - 10.2 mg/dL LAB CHEMISTRY METHOD 10/03/2024 5:09 PM [facility] AST (SGOT) 23 5 - 40 unit/L LAB CHEMISTRY METHOD 10/03/2024 5:09 PM [facility] ALT (SGPT) 24 7 - 52 unit/L LAB CHEMISTRY METHOD 10/03/2024 5:09 PM [facility] Alkaline Phosphatase 70 34 - 104 unit/L LAB CHEMISTRY METHOD 10/03/2024 5:09 PM [facility] Total Protein 7.0 6.4 - 8.5 g/dL LAB CHEMISTRY METHOD 10/03/2024 5:09 PM [facility] Albumin 4.4 3.5 - 5.0 g/dL LAB CHEMISTRY METHOD 10/03/2024 5:09 PM [facility] Total Bilirubin 0.9 0.3 - 1.0 mg/dL LAB CHEMISTRY METHOD 10/03/2024 5:09 PM [facility] Blood Venous blood specimen / Unknown Venipuncture / Unknown 10/03/2024 4:44 PM EST 10/03/2024 4:48 PM EST Jesus Monterroso MD LAB BLOOD ORDERABLES Final Result [facility] [address] [place] [address], [place] [phone] * Depression Screening (08/31/2022) Depression Screening abstracted Historical Provider HEALTH MAINTENANCE Final Result from Last 3 Months or Most Recently Relevant to Health Maintenance Insurance [facility] Care Teams Supervisor Chassis Assembly Relationship Specialty Start Date End Date Rylee Matamoros NP [address] [place] [address] PCP - General Family Medicine 12/11/22
== END 2025-10-18 11:43 | disposition home or self-care (01) ==
PROVIDERS: PCP Nurse Practitioner
DX: F10.20 Alcohol dependence, uncomplicated (principal)

== ENCOUNTER → 2025-10-18 10:54 | Outpatient (BNVA) | payer OTHER, SELFPAY | PROVIDERS: PCP Nurse Practitioner | DX: F10.20 Alcohol dependence, uncomplicated (principal) | CPT/HCPCS: 96372; J2315 ==

== ENCOUNTER 2025-11-16 10:33 | Outpatient (AMB) | payer OTHER, SELFPAY ==
--- OUTSIDE RECORDS SUMMARY | 2024-09-08 06:33 | XMS_ITS | Encounter Summary ---
Author Organization [facility] Address [address] [place] [address] Care Team Providers Care Derrick Worker Well Service Name Role Phone Rylee Matamoros BIRD TENDER Primary Care Provider [phone] Encounter Details Date Type Department Care Team (Late st Contact Info) Description 09/08/2024 7:33 AM EDT Hospital Encounter TH HISTORIC ENCOUNTERS EASTERN CONVERSION ONLY Rylee Matamoros, BIRD TENDER [address] [place], [place] [id number] Social History Tobacco Use Types Packs/Day Years Used Date Smoking Tobacco: Never Smokeless Tobacco: Never Alcohol Use Standard Drinks/Week Comments Yes 30 (1 standard drink = 0.6 oz pu re alcohol) Sex and Gender Information Value Date Recorded Sex Assigned at Male 10/03/2024 5:19 PM EST Legal Sex Male 7:47 AM EST Gender Identity Male 10/03/2024 5:19 PM EST Sexual Orientation Choose not to disclose 2023 5:19 PM EST documented as of this encounter Last Filed Vital Signs Vital Sign Reading Time Taken Comments Blood Pressure - - Pulse - - Temperature - - Respiratory Rate - - Oxygen Saturation - - Inhaled Oxygen Concentration - - Weight 83.6 kg (184 lb 6.4 oz) 06/23/2024 9:13 A M EDT Height 170.2 cm (5' 7 ) 06/23/2024 9:13 AM EDT Body Mass Index 28.88 06/23/2024 9:13 AM EDT documented in this encounter Progress Notes * Historical, Notes Results - 09/08/2024 7:30 AM EDT Lab draw 09/08/2024 HPI: 39 y.o. year old male seen today for Chief Complaint Patient presents with ??? Labs Only Draw Assessment: The patient is not currently ill or experiencing fever. Venipuncture Site: left AC Patient seated on the examination table. Area was cleaned thoroughly with alcohol. tourniquet applied. Blood drawn from vein. Needle removed DSD applied. ENCOUNTER ORDERS: No orders of the defined types were placed in this encounter. EDUCATION: The patient was educated on signs and symptoms of infection and possible adverse reactions. May take Tylenol and use ice for inflammation or pain. PLAN: F/u as needed documented in this encounter Plan of Treatment Not on file documented as of this encounter Visit Diagnoses Not on filedocumented in this encounter Care Teams Derrick Worker Well Service Relationship Specialty Start Date End Date Rylee Matamoros, SALVATORE [address] [place] [address] PCP - General Family Medicine 12/11/22 documented as of this encounter
--- OUTSIDE RECORDS SUMMARY | 2024-09-08 10:25 | XMS_ITS | Encounter Summary ---
Author Organization [facility] Address [address] [place] [address] Care Team Providers Care Screw Machine Operator Single Spindle Name Role Phone Rylee Matamoros DISHTANK OPERATOR Primary Care Provider [phone] Encounter Details Date Type Department Care Team (Late st Contact Info) Description 09/08/2024 11:25 AM EDT Hospital Encounter TH HISTORIC ENCOUNTERS EASTERN CONVERSION ONLY Rylee Matamoros, DISHTANK OPERATOR [address] [place], [place] [phone] Social History Tobacco Use Types Packs/Day Years [...] 9:13 AM EDT documented in this encounter Plan of Treatment Not on file documented as of this encounter Visit Diagnoses Not on filedocumented in this encounter Care Teams Screw Machine Operator Single Spindle Relationship Specialty Start Date End Date Rylee Matamoros NP [address] [place] [address] PCP - General Family Medicine 12/11/22 documented as of this encounter
--- OUTSIDE RECORDS SUMMARY | 2024-09-21 09:45 | XMS_ITS | Encounter Summary ---
Author Organization [facility] Address [address] [place] [address] Care Team Providers Care Assisted Living Director Name Role Phone Rylee Matamoros PROSTHETICS ASSISTANT Primary Care Provider [phone] Encounter Details Date Type Department Care Team (Late st Contact Info) Description 09/21/2024 10:45 AM EDT Hospital Encounter TH HISTORIC ENCOUNTERS EASTERN CONVERSION ONLY Rylee Matamoros, PROSTHETICS ASSISTANT [address] [place], [place] [id number] Social History Tobacco Use Types Packs/Day Years [...] Sign Reading Time Taken Comments Blood Pressure 134/86 09/21/2024 10:56 AM EDT Sitting Right arm Pulse 91 09/21/2024 10:56 AM EDT Temperature - - Respiratory Rate - - Oxygen Saturation - - Inhaled Oxygen Concentration - - Weight 82.9 kg (182 lb 12.8 oz) 09/21/2024 10:56 AM EDT Height 170.2 cm (5' 7 ) 09/21/2024 10:5 6 AM EDT Body Mass Index 28.63 09/21/2024 10:56 AM EDT documented in this encounter Progress Notes * Historical, Notes Results - 09/21/2024 11:00 AM EDT Pt is here for his annual physical exam, he is requesting flu shot today. Pt is currently taking campral 999mg BID, valsartan 320mg, trintellix 10mg, pantroprazole 40mg PRN. He has had an issue with filling his vivtrol injection because of pharmacy not having it in stock, so he has been taking leftover naltrexone tablets from rehab to get him through. Pt states he needs the injection rx sent to [facility] as they have it in stock. Pt states he has not f/u with the pct yet or the eye doctor but will be calling them to get set up with an appt as the referrals were previously placed; he will be reaching out to [facility] & Dr. Lozano at [facility]. Pt states he has been experiencing pain in his left testicle intermittently for the past couple of weeks and ended up going to urgent care last week, he was found to have a 3mm nodule in his testicle and was instructed to f/u with his pcp to get an ultrasound. They tested pt urine for a uti & std's which all came back negative. Pt denies other questions or concerns, urine sample obtained. Clinical Depression Screening was performed and patient is negative for depression. * Historical, Notes Results - 09/21/2024 11:00 AM EDT VACCINATION Vaccination HPI: ? The patient is a 39 y.o. year old male patient here to bring immunizations up to date. Denies recent fever, chills, rhinorrhea, stuffiness, shortness of breath, chest pain, cough, abdominal complaint, sneeze. Denies history of egg allergy or history of immunization reaction. VITAL SIGNS: Vitals: 09/21/24 1056 BP: 134/86 Pulse: 91 Temp: 97.8 ??F (36.6 ??C) TempSrc: Tympanic SpO2: 99% Weight: 82.9 kg (182 lb 12.8 oz) Height: 5' 7 (1.702 m) Body mass index is 28.63 kg/m??. PAST MEDICAL HISTORY: Past Medical History: Diagnosis Date ??? Alcohol abuse 08/07/2021 ??? Anxiety ??? Depression ??? Essential hypertension 08/07/2021 MEDICATIONS: Current Outpatient Medications Medication Sig Dispense Refill ??? acamprosate (CAMPRAL) 333 MG tablet Take 2 tablets (666 mg total) by mouth 2 (two) times a day.(Patient taking differently: Take 3 tablets (999 mg total) by mouth 2 (two) times a day.) 360 tablet 0 ??? pantoprazole (PROTONIX) 40 MG tablet Take 1 tablet (40 mg total) by mouth every morning on an empty stomach. ??? pantoprazole (PROTONIX) 40 MG tablet Take 1 tablet (40 mg total) by mouth every morning on an empty stomach. 30 tablet 0 ??? Trintellix 10 MG TABS tablet Take 1 tablet (10 mg total) by mouth daily. 90 tablet 0 ??? valsartan (DIOVAN) tablet 320 mg Take 1 tablet (320 mg total) by mouth daily. 90 tablet 0 ??? Vivitrol 380 MG SUSR injection Inject 380 mg into the muscle every 30 (thirty) days. 1.2 each 1 ??? propranolol (INDERAL) 10 MG tablet TAKE 1 TABLET BY MOUTH TWICE A DAY NEEDED FOR ANXIETY (Patient not taking: Reported on 06/23/2024) No current facility-administered medications for this visit. ALLERGIES: Allergies Allergen Reactions ??? Azithromycin Rash ??? Erythromycin Itching and Rash Injection site: See immunization record Patient seated on the examination table. Area was cleaned thoroughly with alcohol. Band-aid applied. VIS given. Vaccination Plan: Vaccines Given Today: Orders Placed This Encounter Procedures Influenza Trivalent (Flucelvax) 0.5 mL (6mon &>) ??? POCT Urinalysis, Auto, W/O Scope ? ? Tylenol or ibuprofen for any pain at local injection site not responding to ice pack. ? Patient given copies of immunizations received today and record in EHR updated. ?? Possible immunization reactions reviewed and patient. . I have discussed the indication for thisvaccination, as well as possible side effects including but not limited to localized irritation, redness, swelling, muscle ache to injection site, low grade temperature. instructed to RTO for evaluation should any arise. This patient was advised to seek medical attention for severe symptoms including difficulty breathing, hives, chest pain, fainting or other concerning symptoms. ? F/U as needed Leanne House LPN 09/21/2024 * Rylee Matamoros NP - 09/21/2024 11:00 AM EDT Annual Physical Exam CHIEF COMPLAINT: Chief Complaint Patient presents with ??? Annual Exam PATIENT CARE TEAM Patient Care Team: Rylee Matamoros, BUSINESS MANAGER [employer] as PCP - General (Pediatrics) HISTORY OF PRESENT ILLNESS: Pierce Powers is a 39 y.o. male here for the routine health exam Concerns/questions: NURSING NOTE VERIFIED: Pt is here for his annual physical exam, he is requesting flu shot today. Pt is currently taking campral 999mg BID, valsartan 320mg, trintellix 10mg, pantroprazole 40mg PRN. He has had an issue with filling his vivtrol injection because of pharmacy not having it in stock, so he has been taking leftover naltrexone tablets from rehab to get him through. Ptstates he needs the injection rx sent to [facility] as they have it in stock. Pt states he has not f/u with the pct yet or the eye doctor but will be calling them to get set up with an appt as the referrals were previously placed; he will be reaching out to [facility] & Dr. Lozano at [facility]. Pt states he has been experiencing pain in his left testicle int ermittently for the past couple of weeks and ended up going to urgent care last week, they told pt he has a lump in his testicle and he should f/u with his pcp to get an ultrasound. They tested pt urine for a uti & std's which all came back negative. Pt states that he has drank a little bit since leaving rehab. Clinical Depression Screening was performed and patient is negative for depression. 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 PROBLEM LIST: Patient Active Problem List Diagnosis SNOMED CT(R) ??? Recurrent major depression in partial remission (HCC) RECURRENT MAJOR DEPRESSION IN PARTIAL REMISSION ??? Alcohol abuse ALCOHOL ABUSE ??? Anxiety ANXIETY ??? Essential hypertension ESSENTIAL HYPERTENSION CURRENT MEDICATIONS: reviewed and reconciled by me Current Outpatient Medications Medication Sig Dispense Refill ??? acamprosate (CAMPRAL) 333 MG tablet Take 2 tablets (666 mg total) by mouth 2 (two) times a day.(Patient taking differently: Take 3 tablets (999 mg total) by mouth 2 (two) times a day.) 360 tablet 0 ??? pantoprazole (PROTONIX) 40 MG tablet Take 1 tablet (40 mg total) by mouth every morning on an empty stomach. ??? pantoprazole (PROTONIX) 40 MG tablet Take 1 tablet (40 mg total) by mouth every morning on an empty stomach. 30 tablet 0 ??? Trintellix 10 MG TABS tablet Take 1 tablet (10 mg total) by mouth daily. 90 tablet 0 ??? valsartan (DIOVAN) tablet 320 mg Take 1 tablet (320 mg total) by mouth daily. 90 tablet 0 ??? Vivitrol 380 MG SUSR injection Inject 380 mg into the muscle every 30 (thirty) days. 1.2 each 1 ??? propranolol (INDERAL) 10 MG tablet TAKE 1 TABLET BY MOUTH TWICE A DAY NEEDED FOR ANXIETY (Patient not taking: Reported on 06/23/2024) No current facility-administered medications for this visit. VITAL SIGNS: Vitals: 09/21/24 1056 BP: 134/86 BP Location: Right arm Patient Position: Sitting Cuff Size: Adult Large Pulse: 91 Temp: 97.8 ??F (36.6 ??C) TempSrc: Tympanic SpO2: 99% Weight: 82.9 kg (182 lb 12.8 oz) Height: 5' 7 (1.702 m) Wt Readings from Last 3 Encounters: 09/21/24 82.9 kg (182 lb 12.8 oz) 06/23/24 83.6 kg (184 lb 6.4 oz) 02/11/24 79.4 kg (175 lb) Body mass index is 28.63 kg/m??. Results for orders placed or performed in visit on 09/21/24 POCT Urinalysis, Auto, W/O Scope Result Value Ref Range POCT Glucose, Urine Negative Negative POCT Urine Bilirubin Negative Negative POCT Ketones, Urine Negative Negative POCT Specfic [place], Urine 1.020 1.005 - 1.030 POCT Blood, Urine Negative Negative POCT Urine pH 6.5 5.0 - 8.0 POCT Protein, Urine Negative Negative POC Urine Urobilinogen 0.2 0.2 - 1.0 POCT Nitrite, Urine Negative Negative POCT Leukocytes, Urine Negative Negative POCT Color, Urine Pale/Straw Color POCT Clarity, Urine Clear LABS: reviewed today abnormal labs: Elevated cholesterol- will try lifestyle modification Lab Results Component Value Date WBC 6.1 09/08/2024 RBC 5.00 09/08/2024 MCV 88.9 09/08/2024 MCH 31.1 09/08/2024 MCHC 35.0 09/08/2024 RDW 13.0 09/08/2024 PLTCOUNT 260 09/08/2024 MPV 10.4 09/08/2024 NEUTROPHILS 66.3 09/08/2024 LYMPHOCYTES 23.0 09/08/2024 EOSINOPHILS 2.3 09/08/2024 BASOPHILS 1.2 09/08/2024 NEUTROPHABSO 4.1 09/08/2024 LYMPHOCYABSO 1.4 09/08/2024 MONOCYTABSOL 0.4 09/08/2024 EOSINOPHIABS 0.1 09/08/2024 BASOPHILSABS 0.1 09/08/2024 Lab Results Component Value Date BUN 12 09/08/2024 CREATININE 1.0 09/08/2024 NA 140 09/08/2024 K 4.8 09/08/2024 CL 101 09/08/2024 CO2 29 09/08/2024 GLUCFASTING 55 (L) 08/20/2022 CALCIUM 9.3 09/08/2024 ALBUMIN 4.7 09/08/2024 ALKPHOS 76 09/08/2024 AST 18 09/08/2024 ALT 18 09/08/2024 LABBILI 0.9 09/08/2024 Lab Results Component Value Date CHOL 216 (H) 09/08/2024 HDL 60 09/08/2024 LDLCALC 122 09/08/2024 TRIGLYCERIDE 170 (H) 09/08/2024 No results found for: HGBA1C SCREENINGS: BMI SCREENING REVIEWED: BMI Screening: patient's BMI was abnormal. Follow up plan includes: counseled on proper nutrition, counseled on physical exercise and weight monitoring . DEPRESSION SCREENING REVIEWED: performed and patient is negative for depression FUNCTIONAL ASSESSMENT (ADL/I-ADL) SCREENING REVIEWED: Functional Assessment: functional ability hasremained stable. FALL RISK SCREENING REVIEWED: Future Fall Risk Screening: patient is NEGATIVE for future fall risk (no falls in the past 6 months) SMOKING CESSATION: Has never smoked ALCOHOL CONSUMPTION: heavy ADVANCED CARE PLANNING: has NO advance directive - not interested in additional information. LABS IN OFFICE RESULTS: Results for orders placed or performed in visit on 09/21/24 POCT Urinalysis, Auto, W/O Scope Result Value Ref Range POCT Glucose, Urine Negative Negative POCT Urine Bilirubin Negative Negative POCT Ketones, Urine Negative Negative POCT Specfic [place], Urine 1.020 1.005 - 1.030 POCT Blood, Urine Negative Negative POCT Urine pH 6.5 5.0 - 8.0 POCT Protein, Urine Negative Negative POC Urine Urobilinogen 0.2 0.2 - 1.0 POCT Nitrite, Urine Negative Negative POCT Leukocytes, Urine Negative Negative POCT Color, Urine Pale/Straw Color POCT Clarity, Urine Clear PHYSICAL EXAM: ?General - Patient is alert and oriented X 3. Looks well kempt. Pt has no signs of acute distress. Pt answers questions appropriately and maintained good eye contact. Pt is a good historian ?HEENT - Head: Evenly distributed hair with thick texture. No lumps, cysts, depressions and hematomas palpated. Face: Face is symmetrical with no signs of trauma. No facial drooping. TMJ is nontenderwith mobility intact. Facial sensation intact. Eyes: No ptosis or redness on eyelids. No excessive l acrimation. Eyelashes evenly distributed.Conjunctiva is pink. Nontender lacrimal ducts. Sclera is white. Iris is intact and round. Clear cornea, no signs of abrasion. Positive red reflex. Visual field intact. EOM intact. +PERRLA. Ears: Nontender ears. Ear canals pink with no excessive cerumen. Pearly cosme tympanic membrane. 5 o clock and 7 o clock cone of light. AC>BC. Positive whisper test. Reyes midline. Nose: Nares intact. No deformities. Nontender sinuses. [place] nasal mucosa without boggy turbinate. Smelling intact. Mouth/Throat: Oral mucosa is pink and moist. No dental deformities,oral sores, signs of infection or bleeding. Tongue is intact. Palate intact. Uvula midline and rises during ???ahh?? test. +1 Grade tonsils. Swallowing reflex intact. Gag reflex is intact. ?Neck - No palpable masses. Trachea is midline. Nontender, symmetrical thyroid gland which elevateson swallowing. ROM intact in neck and shoulder with 5/5 strength. ?Cardiovascular - S1 and S2 heartsounds. No murmurs or extra heart sounds. +2 radial pulsesand pedal pulses. Cap refill is less than3 seconds. No bruits on carotid. ?Respiratory - No cyanosis, chest wall deformities or use of accessory muscles. Chest rises symmetrically. Resonance present on percussion. Clear lung sounds. ?GI/ - Abdomen is nondistended. Normoactive bowel sounds. Tympanic on percussion. No organomegaly. Negative CVA tenderness and kidneys nonpalpable. ?Musculoskeletal - Head and Neck: Symmetrical with ROM intact.Upper Extremities, Hands, Fingers, Elbows and Shoulders: ROM intact, no swelling or tenderness. Symmetrical. Lower Extremities, Knee and /Ankles: ROM intact. Symmetrical. No tenderness or swelling. Hips and Spine: ROM intact. No pain or swelling. ?Integumentary - Skin is intact. No open lesions, discoloration, bruises or rashes. ?Neurological -??? Refer to HEENT for Cranial nerves assessment. Speech is clear. Balanced gait. Sensation on extremities intact. 5/5 strength. +2 dtr. ?Hematologic and Lymphatic- No lymphadenopathy. THE FOLLOWING ANTICIPATORY GUIDANCE REVIEWED WITH PATIENT WHERE APPLICABLE TO PT STATUS: NUTRITION SAFETY ?? Risk stratification, lifestyle modifications were discussed and recommended. ?? Maintain caloric intake 2000 lalitha/day. Encouraged to increase olive oil, beans, nuts, legumes as tolerated unless contraindicated in the diet and avoid processed food/carbonated/caffeine beverages for preventive purposes. ?? observe portion controlled strictly ?? avoid sodium and salt intake ?? Injury prevention: Discussed safety belts, safety helmets, smokedetector, smoking near bedding or upholstery. Social Behavior ?? Substance Abuse: Discussed cessation/primary prevention of tobacco, alcohol, or other drug use; driving or other dangerous activities under the influence; availability of treatment for abuse. ?? Sexuality: Discussed sexually transmitted diseases, partner selection, use of condoms, avoidanceof unintended and contraceptive alternatives. HEALTH ?? Immunizations reviewed. ?? Discussed benefits of screening colonoscopy (if applicable) ?? Obgyn exam (If applicable) ?? Exercise on a regular basis for optimization of BMI for preventive purposes. ?? Dental health: Discussed importance of regular tooth brushing, flossing, and dental visits. HEALTHCARE MAINTENANCE APPLICABLE During the course of the visit the patient was educated and counseled about appropriate screening and preventive services including: Health Maintenance Topic Date Due ??? Preventative Health Evaluation 09/16/2024 ??? Depression Screening 09/21/2025 ??? BMI Counseling 09/21/2025 ??? Influenza Vaccine Completed RSV Ped < 20 months Aged Out ??? DTap / Tdap / Td Discontinued ??? Pneumococcal Vaccine Discontinued ??? Hepatitis B Vaccines Discontinued ??? Hepatitis C Screening Discontinued ??? COVID-19 Vaccine Discontinued DIAGNOSIS/ASSESSMENT/PLAN: Problem List Items Addressed This Visit Recurrent major depression in partial remission (HCC) Alcohol abuse Anxiety Essential hypertension Relevant Medications valsartan (DIOVAN) tablet 320 mg Other Visit Diagnoses Annual physical exam - Primary Relevant Orders POCT Urinalysis, Auto, W/O Scope (Completed) Pain in left testicle Relevant Orders US Scrotum with Doppler Flu vaccine need 1. Informed pt that a testicular ultrasound will be ordered due to the mass that was found in his testicle at the urgent care and the pain he has been experiencing in the left testicle 2. Ultrasound scrotum with doppler ordered 3. Informed pt that the vivtrol injections will be sent to [facility] 4. Pt received flu shot in office today 5. All medications will remain the same 6. Refill on pantoprazole and valsartan sent to the pharmacy 7. Pt will follow up in one month to recheck his blood pressure and discuss testicular ultrasound 8. No other questions or concerns at this time THE FOLLOWING DISCUSSED WITH PT APPLICABLE TO VISIT --Nutrition: Stressed importance of moderation in sodium/caffeine intake, saturated fat and cholesterol, caloric balance, sufficient intake of fresh fruits, vegetables, fiber, calcium, iron, and 1 mgof folate supplement per day (for females capable of ). Consume healthy balanced diet withlow carbohydrates, fat and sodium, lessened red meatand high in vegetables and fruits. Drink 8-10 glasses of water each day --Discussed the issue of estrogen replacement, calcium supplement, and the daily use of baby aspirin. --Exercise: Stressed the importance of regular exercise. Physical activity: Aerobic exercises 3 times each week, total of 150 minutes per week --Substance Abuse: Discussed cessation/primary prevention of tobacco, alcohol, or other drug use; driving or other dangerous activities under the influence; availability of treatment for abuse. --Sexuality: Discussed sexually transmitted diseases, partner selection, use of condoms, avoidance of unintended and contraceptive alternatives. --Injury prevention: Discussed safety belts, safety helmets, smoke detector, smoking near bedding or upholstery. --Dental health: Discussed importance of regular tooth brushing, flossing, and dental visits. --Immunizations reviewed. --Discussed benefits of screening colonoscopy. --After hours service discussed with patient. Monitor any changes in health. For life threatening issues, call 911 I have discussed risks and benefits, rationale for the use of medication recommended, along with alternative choices available and possibility of no medication use, with patient. Any related questions were answered. Patient/caregiver has voiced understanding of the above discussion/medication management and has provided informed consent to the treatment plan recommended. Advised to call back directly if there are further questions, or if these symptoms fail to improve as anticipated or worsen. Patient/caregiver verbalized understanding of visit today: I have reviewed the instructions with the patient/caregiver, answering all questions to patient/caregiver satisfaction. Next well visit in 1 year Outpatient Encounter Medications as of 09/21/2024 Medication Sig Dispense Refill ??? acamprosate (CAMPRAL) 333 MG tablet Take 2 tablets (666 mg total) by mouth 2 (two) times a day.(Patient taking differently: Take 3 tablets (999 mg total) by mouth 2 (two) times a day.) 360 tablet 0 ??? pantoprazole (PROTONIX) 40 MG tablet Take 1 tablet (40 mg total) by mouth every morning on an empty stomach. ??? pantoprazole (PROTONIX) 40 MG tablet Take 1 tablet (40 mg total) by mouth every morning on an empty stomach. 30 tablet 0 ??? Trintellix 10 MG TABS tablet Take 1 tablet (10 mg total) by mouth daily. 90 tablet 0 ??? valsartan (DIOVAN) tablet 320 mg Take 1 tablet (320 mg total) by mouth daily. 90 tablet 0 ??? Vivitrol 380 MG SUSR injection Inject 380 mg into the muscle every 30 (thirty) days. 1.2 each 1 ??? [DISCONTINUED] valsartan (DIOVAN) tablet 320 mg Take 1 tablet (320 mg total) by mouth daily. 90tablet 0 ??? propranolol (INDERAL) 10 MG tablet TAKE 1 TABLET BY MOUTH TWICE A DAY NEEDED FOR ANXIETY (Patient not taking: Reported on 06/23/2024) ??? [DISCONTINUED] Vivitrol 380 MG SUSR injection Inject 380 mg into the muscle every 30 (thirty) days. (Patient not taking: Reported on 09/21/2024) 1.2 each 1 No facility-administered encounter medications on file as of 09/21/2024. Orders Placed This Encounter Procedures ??? US Scrotum with Doppler [facility] PT [id number] 09/22/24 Standing Status: Future Standing Expiration Date: 09/21/2025 Order Specific Question: Reason for Exam: Answer: Left testicle pain Order Specific Question: Would you like radiology scheduling to contact the patient to schedule their appointment? Answer: Yes Order Specific Question: Release to patient Answer: Immediate [1] Influenza Trivalent (Flucelvax) 0.5 mL (6mon &>) ??? POCT Urinalysis, Auto, W/O Scope Order Specific Question: Release to patient Answer: Immediate [1] There are no Patient Instructions on file for this visit. Future Appointments Date Time Provider Department Center 09/28/2024 1:30 PM ENF US 2 [facility] Rad En Rylee Matamoros APRN Family Nurse Practitioner [facility] 09/21/2024 documented in this encounter Plan of Treatment Not on file documented as of this encounter Visit Diagnoses Not on filedocumented in this encounter Care Teams Assisted Living Director Relationship Specialty Start Date End Date Rylee Matamoros NP [address] [place] [address] PCP - General Family Medicine 12/11/22 documented as of this encounter
--- NOTE | 2025-11-16 10:33 | AM.OFFVISNUR ---
Vital Signs 11/16/25 10:40 BP 126/78 Pulse 98 Pulse Oximetry (%) 98 Intake Visit Reasons: Injection Allergies azithromycin Allergy (Verified 11/16/25 10:41) Hives Nursing Note Pierce presents today for his 4 week Vivitrol injection. Pierce is alert, oriented and presents with appropriate affect. Pierce reported that he reached out to a therapist in his area and though it was not a good match and he will move on that it waw liberating, he also has rejoined the gym and is trying to get back to a regular schedule with that and if feeling pretty good. Follow up scheduled in 4 weeks for the next injection. Office Meds Vivitrol 380 mg intramuscular suspension,extended release Performing Provider: Angelica Peng MD Performing Location: [facility] Administered by: Samantha Easton RN on 11/16/25 11:02 Dose Route Admin Location Dispensed Lot Number Expiration Date [facility] Commercial Carpet Installer 380 mg IM LG 380 mg [id number] 11/24/27 [id number] [employer] Total Dispensed Waste 380 mg 0 % Comments: Pt is present for Vivitrol injection, pt denies complications with previous injections and tolerated injection well. Pt educated on signs and symptoms of infection at the injection site, urged to call [facility] with any questions or concerns, pt verbalized understanding. Follow up appointment made in 4 weeks for next injection. Assessment & Plan Assessment & Plan Orders: Orders AMB Naltrexone Injection - Practice Supplied Today F10.20 - Alcohol dependence, uncomplicated Coding
[2025-11-16 10:40] VITALS: BP 126/78; PULSE 98; O2SAT 98
--- OUTSIDE RECORDS SUMMARY | 2025-11-16 11:48 | XMS_ITS | Clinical Summary ---
Author Organization [facility] Prior to 04/24/25 Address [address] [place] [address] Care Team Providers Care Paste Up Copy Camera Operator Name Role Phone Rylee Matamoros APRN Primary Care Provider Allergies Active Allergy Reactions [...] often do you attend chur ch or voodoo services? Never 08/31/2022 Do you belong to any clubs o r organizations such as worship groups, unions, fraternal or athletic groups, or [...] age to complete this topic Care Teams Paste Up Copy Camera Operator Relationship Specialty Start Date End Date Rylee Matamoros APRN PCP - General Pediatrics 08/04/21
--- OUTSIDE RECORDS SUMMARY | 2025-11-16 11:48 | XMS_ITS | Clinical Summary ---
Author Organization [facility] Address [address] [place] [address] Phone Care Team Providers Care Integration Director Name Role Phone Rylee Matamoros WRAPPING CHECKER Primary Care Provider [phone] Allergies Active Allergy Reactions Criticality Noted Date [...] not to disclose 2023 5:19 PM EST Last Filed Vital Signs Vital Sign Reading [...] METABOLIC PANEL STAT 10/03/2024 4:44 PM EST HM DEPRESSION SCREENING Routine 08/31/2022 from Last 3 [...] Monterroso MD LAB BLOOD ORDERABLES Final Result [facility] [address] [place] [address], [place] [phone] * Depression Screening (08/31/2022) Depression Screening abstracted Historical Provider HEALTH MAINTENANCE Final Result from Last 3 Months or Most Recently Relevant to Health Maintenance Insurance [facility] Care Teams Integration Director Relationship Specialty Start Date End Date Rylee Matamoros NP [address] [place] [address] PCP - General Family Medicine 12/11/22
--- OUTSIDE RECORDS SUMMARY | 2025-11-16 11:48 | XMS_ITS | Clinical Summary ---
Author Organization [address] Address [address] [place] [address] Care Team Providers Care Bicycle Inspector Name Role Phone Unavailable Primary Care [...]
--- OUTSIDE RECORDS SUMMARY | 2025-11-16 11:48 | XMS_ITS | Clinical Summary ---
Author Organization [facility] Address [address] [place] [address] Care Team Providers Care Carpenter Form Name Role Phone Rylee Matamoros Primary Care Provider [phone] Allergies Active Allergy Reactions Criticality Noted Date [...] to complete this topic Insurance Care Teams Carpenter Form Relationship Specialty Start Date End Date Rylee Matamoros PCP - General Pediatrics 11/17/23
--- OUTSIDE RECORDS SUMMARY | 2025-11-16 11:48 | XMS_ITS | Data Portability ---
Author Organization [place] - [employer] [facility], autoContract - [facility] Address [address] [place] [address] Assessment No assessment recorded. Plan of Treatment Reminders Order Date Submit Date Provider Last Modified By Organization Details Last Modified Time Details Appointments None recorded. Lab None recorded. Referral None recorded. Procedures None recorded. Surgeries None recorded. Imaging None recorded. Medication Orders valsartan 320 mg tablet [address]/[id number], [address] [place], [address], 4 17:19:44 propranolol 10 mg tablet [address] [id number], [address] [place], [address], 4 17:19:44 Patient TargetsNo targets recorded. Patient [...] should try to get it through the [place] [facility] - Informed pt that he [...] other questions or concerns at this time [email or web address] Not available 11/10/2024 15:33:43 Reason for Referral None Reported. Problems Name Problem SNOMED Code Status Onset Date Resolution Date Notes Provider Name and Address Organization Details Recorded Time Recurrent major depression in partial remission 79261969 Active 2015 Leanne House [facility] 4 14:53:53 Harmful pattern of use of alcohol 23702269 Active 2020 Leanne House [facility] 4 14:53:53 Anxiety 47253656 Active 2020 Leanne House [facility] 4 14:53:53 Essential hypertension 93503116 Active 2020 Leanne House [facility] 4 14:53:53 Alcohol dependence 92008044 Active 2024 Rylee Matamoros, DNP, DEPLOYMENT SPECIALIST [address] [place], [address] , [facility] 5 11:05:22 Problem Notes None recorded. Medical Equipment None Reported. Allergies Allergen ID Allergen Name Allergen Category Reaction Reaction Severity Criticality Documentation Date Start Date Code Code System Note Provider Name and Address Organization Details Recorded Time 2554 erythromy lorene medicatio n itching rash Not available Not available Not available 11/10/20242015 4053 RxNorm Leanne House [facility] 4 14:53:38 2555 azithromy lorene medicatio n Not available Not available Not available 11/10/2024 37198 RxNorm Jeancarlospennymichelle Neff [facility] 4 15:09:35 Medications Name Sig Start Date [...] height Body temperature Heart rate Oxygen saturation Systolic And Diastolic Provider Name and Address Organization Details Last Updated DateTime 4 28.2 kg/m2 170.18 cm 98.3 [degF] 94 /min 98 % 132/84 mm[Hg] Reji Neff [facility] 4 15:11:27 Date Recorded Body weight Provider Name an d Address Organization Details Last Updated DateTime 11/10/2024 88910.91 g Leanne House [facility] 11/10/2024 14:53:34 Social History None recorded. Functional [...] MDCK, quadrivalent, PF 2 completed Leanne granados [facility] 11/10/2024 14:53:57 COVID-19, mRNA, LNP-S, PF, 30 mcg/0.3 mL dose 1 completed Leanne granados [facility] 11/10/2024 14:53:57 COVID-19, mRNA, LNP-S, PF, 30 mcg/0.3 mL dose 1 completed Leanne House null, [place] - [facility] 11/10/2024 14:53:57 Influenza, split virus, trivalent, preservative 6 completed Leanne House null, [place] [facility] 11/10/2024 14:53:57 COVID-19, mRNA, LNP-S, PF, 100 mcg/0.5mL dose or 50 mcg/0.25mL dose 1 completed Not Available [facility] 01/07/2025 10:33:59 Past Encounters Encounter ID Performer Location Encounter Start Date Encounter Closed Date Diagnosis/Indication Diagnosis SNOMED-CT Code Diagnosis ICD10 Code Diagnosis IMO Codes Diagnosis Note [id number] Rylee Matamoros DNP, DEPLOYMENT SPECIALIST [id number] [address] [place] [address] 11/10/2024 14:44:45 11/10/2024 15:48:23 Essential hypertension 78789424 I10 Anxiety 00156246 F41.9 Health Concerns Section Related Observation LastModified by Organization Detai ls LastModified Time None Recorded Concern Status LastModified by Organization Details LastModified Time None Recorded Advance Directives Directive None Recorded Payers Insurance Date Sequence Insurance Name Policy Number Policy Isabel Covered Member ID Isabel Member ID Guarantor Name 12/02/2024 1 [employer] [id number] Pierce Powers [id number] Pierce Powers Notes Date Note Type [...] should try to get it through the [place] [facility]. Pt would also like to know if he can be started back on propanolol to help with his anxiety. Pt would also like to discuss the results of his scrotum ultrasound.Pt states that the last time he drank was 3 weeks ago and he is now sober again and trying to eat a better diet. Rylee Matamoros DNP, DEPLOYMENT SPECIALIST [address] [place], [address], [facility] - [facility] 12/01/2024 12:17:49
== END 2025-11-16 11:07 | disposition home or self-care (01) ==
LOC: HO.HCC 10:33
PROVIDERS: PCP Nurse Practitioner
DX: F10.20 Alcohol dependence, uncomplicated (principal)

== ENCOUNTER → 2025-11-16 10:33 | Outpatient (BNVA) | payer OTHER, SELFPAY | PROVIDERS: PCP Nurse Practitioner | DX: F10.20 Alcohol dependence, uncomplicated (principal) | CPT/HCPCS: 96372; J2315 ==